=== PATIENT | male | born 1950 | race Caucasian/White ===

== ENCOUNTER 2018-01-22 13:30 | Outpatient (RCR) | payer MEDICARE | END 2018-01-22 14:13 | disposition home or self-care (01) | PROVIDERS: ATTEND Internal Medicine | DX: F98.5 Adult onset fluency disorder (principal); I10 Essential (primary) hypertension; E11.9 Type 2 diabetes mellitus without complications; Z85.89 Personal history of malignant neoplasm of other organs and systems ==

== ENCOUNTER → 2018-12-23 | Outpatient (CLI) | payer MEDICARE, OTHER ==
[~2018-12-23] MED LIST: AMLO10TA7 PO; ASPI-999 PO; ATOR80TA76 PO; BARIUM SUSPENSION 105% (LIQUID POLIBAR PLUS) 240 ML/DOSE PO ONE; BARIUM SUSPENSION 60% (LIQUID EZ PAQUE) 240 ML DOSE PO ONE; DIATRIZOATE MEGLUM/SODIUM 37% 120 ML (GASTROGRAFIN) PO ONE; GLIM4TAB PO; HYDR-3812 PO; METF-397 PO; PANT40TA3 PO
--- NOTE | 2018-12-23 15:29 | Diagnostic Imaging Report ---
INDICATION: Difficulty swallowing. EXAMINATION: Barium swallow study. A double contrast exam was performed. COMPARISON: There are no prior studies available for comparison. FINDINGS: The preliminary film was unremarkable. The patient swallowed the contrast material without difficulty. There was no delay or obstruction to the passage of the contrast through the esophagus. The proximal esophagus is slightly deviated to the right. There is no clear evidence for a mass in this area but if further study is desired, then CT of the neck would be recommended. The esophagus shows fairly good distensibility and motility. There is no mass or ulceration evident. There is no sign of a hiatal hernia or of gastroesophageal reflux. A cursory examination of the stomach shows no evidence for a gastric mass or ulceration. The duodenal bulb and proximal small bowel are unremarkable. IMPRESSION: 1. The proximal esophagus is slightly shifted to the right. There is no evidence for a mass in this area but if further imaging is desired, then CT of the neck would be recommended. 2. There is no evidence for obstruction of the esophagus and there is no sign of a hiatal hernia or reflux. 3. A cursory examination of the stomach, duodenum and proximal small bowel shows no acute abnormality. Dictated by: Dictated on workstation # [id number]
== END ==
LOC: RAD 10:13
PROVIDERS: ATTEND Nurse Practitioner Primary Care
DX: R13.10 Dysphagia, unspecified (principal)
CPT/HCPCS: 74220

== ENCOUNTER 2018-12-24 05:38 | Outpatient (CLI) | payer MEDICARE, OTHER ==
[~2018-12-24] VITALS: Ht 188 cm; Wt 124.7 kg
[2018-12-24] MEDS ORDERED: ASPI-999 PO (14:38)
[2018-12-24] MEDS ORDERED: AMLO10TA7 PO (14:50)
[2018-12-24] MEDS ORDERED: ATOR80TA76 PO (14:50)
[2018-12-24] MEDS ORDERED: METF-397 PO (14:50)
[2018-12-24] MEDS ORDERED: GLIM4TAB PO (14:50)
[2018-12-24] MEDS ORDERED: HYDR-3812 PO (14:50)
[2018-12-24] MEDS ORDERED: PANT40TA3 PO (14:50)
== END 2018-12-24 14:51 ==
LOC: PREOP 05:38
PROVIDERS: ATTEND Surgery
DX: Z01.818 Encounter for other preprocedural examination (principal)

== ENCOUNTER 2018-12-28 12:09 | Day surgery (SDC) | payer MEDICARE, OTHER ==
[~2018-12-28] VITALS: Ht 188 cm; Wt 124.7 kg
[~2018-12-28 12:09] MED LIST changes: -BARIUM SUSPENSION 105% (LIQUID POLIBAR PLUS) 240 ML/DOSE PO ONE; -BARIUM SUSPENSION 60% (LIQUID EZ PAQUE) 240 ML DOSE PO ONE; -DIATRIZOATE MEGLUM/SODIUM 37% 120 ML (GASTROGRAFIN) PO ONE
--- OUTSIDE RECORDS SUMMARY | 2018-12-28 12:13 | XMS REPORT ---
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 30172559 Problem Slow transit constipation K59.01 Active 45434704 Problem Anxiety F41.9 Active 73318395 Problem Mixed hyperlipidemia E78.2 Active 192007637 Problem Other chronic pain G89.29 Active 63638289 ALLERGIES No Information ENCOUNTERS Encounter Location Date Diagnosis [place] [id number] [address] Sep, [facility] [address] [address] Aug, [place] [address] [address]- [address] Aug, Type 2 diabetes mellitus with other specified complication, without long-term current use of insulin E11.69 [facility] [address] [place] [id number] [place] [address]28- 3466 Jul, [facility] [address] [address]- [address] Jul, [facility] [address] [address]- [address] Jul, [facility] [address] [address]- 0365 Jun, [facility] [address] [place] [id number] [place] [address] 20166- 1157 Jun, [facility] [address] [address]- [address] Jun, Anxiety F41.9 [facility] [address] [place] [id number] [place] [address] 15192- 6919 Jun, Anxiety F41.9 [place] [address] [address]- [address] Jun, Type 2 diabetes mellitus without complication, without long- term current use of insulin E11.9 ; Recurrent major depressive disorder, remission status unspecified F33.9 ; Mixed hyperlipidemia E78.2 ; Anxiety F41.9 ; Slow transit constipation K59.01 ; Other chronic pain G89.29 and Essential hypertension I10 [place] [address] [address]- [address] May, Type 2 diabetes mellitus without complication, without long- term current use of insulin E11.9 [place] [address] [place] [id number] [place] [address] 40709- 7617 Mar, 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 ; Controlled substance agreement signed Z79.899 and BMI 40.0-44.9, adult Z68.41 [facility] [address] [place] [id number] [place] [address] [id number] Jan, [place] [address] [place] [id number] [place] [address] 23386- 9846 Jan, [facility] [address] [place] [id number] [place] [address] [id number] Jan, [place] [address] 7[address]- 135[address] Jan, Type 2 diabetes mellitus without complication, without long- term current use of insulin E11.9 [place] [address] [place] [id number] [place] [address] 55507- 2934 Jan, [facility] [address] [id number] [id number] Jan, Dental examination Z01.20 [facility] [address] [id number] [address] Jan, Dental examination Z01.20 and 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 [facility] [address] [id number] [address] Dec, Dental examination Z01.20 [facility] [address] [facility] [id number] [address] Dec, Encounter to establish care Z76.89 ; Speech problem R47.9 ; Pain in gums K06.8 ; Slow transit constipation K59.01 ; Anxiety F41.9 ; Mixed hyperlipidemia E78.2 ; Recurrent major depressive disorder, remission status unspecified F33.9 ; Essential hypertension I10 ; Other chronic pain G89.29 ; Low back pain M54.5 and Type 2 diabetes mellitus without complication, without long-term current use of insulin E11.9 IMMUNIZATIONS No Known Immunizations SOCIAL HISTORY Never Assessed REASON FOR VISIT DM ED PLAN OF CARE VITAL SIGNS MEDICATIONS Unknown Medications RESULTS No Results PROCEDURES Procedure Date Ordered Result Body Site [facility] VISIT ESTABLISHED PATIENT Sep 10, 2018 DM OP SLF-MGMT TRN SRVC ESTABLISHED PT 30 MIN Sep 10, 2018 INSTRUCTIONS MEDICATIONS ADMINISTERED No Known Medications MEDICAL (GENERAL) HISTORY Type Description Date Medical History Diabetes Type 2 Medical History High Cholesterol Medical History Hypertension Medical History Arthitis in Back Medical History Nerve problems Medical History Depression Medical History throat cancer Medical History radiation-localized to larynx (Patient's mouth and jaws were not involved-per Tara Brantley at [facility] Medical History blood thinners- aspirin Medical History bronchitis Surgical History Throat Cancer Removal Surgical History Gallbladder Removal Hospitalization History Surgery
--- OUTSIDE RECORDS SUMMARY | 2018-12-28 12:13 | XMS REPORT ---
Author Author ELI HAYNES [facility] Address [address] [place] [address] Care Team Providers Care Linen Room Attendant Name Role Phone ELI HAYNES Unavailable PROBLEMS Type Condition ICD9-CM Code [id number] Code Onset Dates Condition Status SNOMED Code Problem Essential hypertension I10 Active 73600123 Problem Slow transit constipation K59.01 Active 82012473 Problem Anxiety F41.9 Active 18517471 Problem Recurrent major depressive disorder, remission status unspecified F33.9 Active 87814089 Problem Stuttering F80.81 Active 35015722 Problem Difficulty with speech R47.9 Active 304149935 Problem Mixed hyperlipidemia E78.2 Active 380788469 Problem Other chronic pain G89.29 Active 87641459 Problem Type 2 diabetes mellitus with other specified complication, without long-term current use of insulin E11.69 Active 14320985 Problem 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 26882634 ALLERGIES No Known Allergies ENCOUNTERS Encounter Location Date Diagnosis [place] [id number] [place] [id number] [place] [address]- 4332 Oct, [place] [address] [place] [id number] [place] [address] 67987- 0969 Sep, Type 2 diabetes mellitus with other specified complication, without long-term current use of insulin E11.69 [place] [address] [place] [id number] [place] [address] 31183- 7796 Sep, Type 2 diabetes mellitus with other specified complication, without long-term current use of insulin E11.69 ; Essential hypertension I10 ; Difficulty with speech R47.9 and Muscle stiffness M62.89 [place] [address] [place] [id number] [place] [address] 97198- 6456 Aug, [place] [address] [address]- [address] Aug, Type 2 diabetes mellitus with other specified complication, without long-term current use of insulin E11.69 [place] [address] [place] [id number]- 1096 Jul, [facility] [address] [place] [id number]284 Jul, [facility] [address] [place] 406413- 3292 Jul, [facility] [address] [address]- [address] Jun, [place] [address] [place] [address] [address] Jun, [place] [address] 787[address]- 5261 Jun, Anxiety F41.9 [place] [address] [place] [id number] [place] [address] 71720- 7749 Jun, Anxiety F41.9 [place] [address] [place] [id number]- 1607 Jun, Type 2 diabetes mellitus without complication, without long- term current use of insulin E11.9 ; Recurrent major depressive disorder, remission status unspecified F33.9 ; Mixed hyperlipidemia E78.2 ; Anxiety F41.9 ; Slow transit constipation K59.01 ; Other chronic pain G89.29 and Essential hypertension I10 [place] [address] [place] [id number] [place] [address] 28100- 2742 May, Type 2 diabetes mellitus without complication, without long- term current use of insulin E11.9 [place] [address] [place] [id number]- 2013 Mar, 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 ; Controlled substance agreement signed Z79.899 and BMI 40.0-44.9, adult Z68.41 [facility] [address] [place] [id number] [place] [id number] Jan, [facility] [address] [address] Jan, [facility] [address] [place] [address] [id number] Jan, [place] [address] [place] [address] [id number]- 4996 Jan, Type 2 diabetes mellitus without complication, without long- term current use of insulin E11.9 [place] [address] [place] [address] 42313- 5616 Jan, [facility] [address] [place] [id number] [place] [address] [id number] Jan, Dental examination Z01.20 [place] [address] [place] [id number] [place] [address] [phone]- 6302 Jan, Dental examination Z01.20 and 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 [place] [address] [place] [address] [id number]- 1721 Dec, Dental examination Z01.20 [place] [address] [place] [id number] [place] [address] 347837- 3926 Dec, Encounter to establish care Z76.89 ; [...] SOCIAL HISTORY Never Assessed REASON FOR VISIT Establish Care- JORDEN Pacheco PLAN OF CARE Activity Details Follow Up 3 months or as indicated by lab Reason:DM VITAL SIGNS Height 72 in 2018-10-07 Weight 269.7 lbs 2018-10-07 Temperature 96.7 degrees Fahrenheit 2018-10-07 Heart Rate 118 bpm 2018-10-07 Respiratory Rate 20 2018-10-07 BMI 36.57 kg/m2 2018-10-07 Blood pressure systolic 112 mmHg 2018-10-07 Blood pressure diastolic 64 mmHg 2018-10-07 MEDICATIONS Medication Instructions Dosage Frequency Start Date End Date Duration Status Stool Softener Not-Taking Fluoxetine 20 mg Orally Once a day 1 capsule in the morning 24h Active Blood Glucose Monitor System w/Device test blood sugar once daily Jul, Active nexium 1 tab Not-Taking Metformin HCl 500 mg Orally Twice a day 2 tablets with meals 12h Active Fish Oil Active Baclofen 10 mg Orally Three times a day 1 tablet with food or milk 8h Sep, 30 day(s) Active Amlodipine Besylate 10 mg Orally Once a day 1 tablet 24h Active OneTouch Verio 1 subcutaneously test blood sugar once daily as directed Jul, Active Lancets - as directed Jul, Active Atorvastatin Calcium 80 MG Orally Once a day 1 tablet 24h Active Hydrocodone-Acetaminophen Active Clorazepate Dipotassium 7.5 MG Orally Once a day 1 tablet at bedtime as needed 24h 28 days Active Glimepiride 4 MG Orally Once a day 2 tablets 24h Active Nexium 40 MG Orally Once a day 1 capsule 24h 30 day(s) Active RESULTS No Results PROCEDURES Procedure Date Ordered Result Body Site [facility] VISIT ESTABLISHED PATIENT Oct 07, 2018 INSTRUCTIONS MEDICATIONS ADMINISTERED No Known Medications MEDICAL (GENERAL) HISTORY Type Description Date Medical History Diabetes Type 2 Medical History High Cholesterol Medical History Hypertension Medical History Arthitis in Back Medical History Nerve problems Medical History Depression Medical History throat cancer Medical History radiation-localized to larynx (Patient's mouth and jaws were not involved-per Tara Brantley at [facility].) Medical History blood thinners- aspirin Medical History bronchitis Surgical History Throat Cancer Removal Surgical History Gallbladder Removal Hospitalization History Surgery
--- OUTSIDE RECORDS SUMMARY | 2018-12-28 12:13 | XMS REPORT ---
Author Author PREETHI MARTÍNEZ Organization [facility] Address [address] [place] [address] Care Team Providers Care Head Of Digital Name Role Phone PREETHI MARTÍNEZ Unavailable PROBLEMS Type Condition ICD9-CM Code [id number] Code Onset Dates Condition Status SNOMED Code Problem Essential hypertension I10 Active 96712077 Problem Slow transit constipation K59.01 Active 92905714 Problem Anxiety F41.9 Active 65678201 Problem Recurrent major depressive disorder, remission status unspecified F33.9 Active 50540620 Problem Stuttering F80.81 Active 93743960 Problem Difficulty with speech R47.9 Active 781503378 Problem Mixed hyperlipidemia E78.2 Active 197605724 Problem Other chronic pain G89.29 Active 51093899 Problem Type 2 diabetes mellitus with other specified complication, without long-term current use of insulin E11.69 Active 44529740 Problem 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 03261185 ALLERGIES No Information ENCOUNTERS Encounter Location Date Diagnosis [place] [address] [place] [id number] [place] [address]43- 6025 Oct, [place] [address] [place] [id number] [place] [address] 90969- 7066 Sep, Type 2 diabetes mellitus with other specified complication, without long-term current use of insulin E11.69 [place] [address] [place] [id number] [place] [address] 81734- 9405 Sep, Type 2 diabetes mellitus with other specified complication, without long-term current use of insulin E11.69 ; Essential hypertension I10 ; Difficulty with speech R47.9 and Muscle stiffness M62.89 [place] [address] [address]- [address] Aug, [place] [address] 7[address]- 3874 Aug, Type 2 diabetes mellitus with other specified complication, without long-term current use of insulin E11.69 [place] [address] [place] [id number]- 3047 Jul, [facility] [address] [address]- [address] Jul, [place] [address] [place] 192637- 1409 Jul, [place] [address] [address]265- [address]005 Jun, [place] [address] [address]14- 2354 Jun, [place] [address] 29494- 4641 Jun, Anxiety F41.9 [place] [address] 18405- 4853 Jun, Anxiety F41.9 [place] [address] 84079- 9666 Jun, Type 2 diabetes mellitus without complication, without long- term current use of insulin E11.9 ; Recurrent major depressive disorder, remission status unspecified F33.9 ; Mixed hyperlipidemia E78.2 ; Anxiety F41.9 ; Slow transit constipation K59.01 ; Other chronic pain G89.29 and Essential hypertension I10 [place] [address] 01554- 1060 May, Type 2 diabetes mellitus without complication, without long- term current use of insulin E11.9 [place] [address] [address]14- 3210 Mar, 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 ; Controlled substance agreement signed Z79.899 and BMI 40.0-44.9, adult Z68.41 [facility] [address] [id number] Jan, [facility] [address] [place] [address] [id number]- 5826 Jan, [facility] [address] [place] [id number] [place] [address] [phone] Jan, [place] [address] [place] [id number] [place] [address] 09220- 8901 Jan, Type 2 diabetes mellitus without complication, without long- term current use of insulin E11.9 [place] [address] [place] [id number] [place] [address] [id number]- 9316 Jan, [facility] [address] [place] [id number] [place] [address] [id number] Jan, Dental examination Z01.20 [place] [address] [place] [id number] [place] [address] 16085- 2535 Jan, Dental examination Z01.20 and 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 [place] [address] [place] [id number] [place] [address] 38359- 7291 Dec, Dental examination Z01.20 [place] [address] [place] [id number] [place] [phone] Dec, Encounter to establish care Z76.89 ; [...] SOCIAL HISTORY Never Assessed REASON FOR VISIT Test strips PLAN OF CARE VITAL SIGNS MEDICATIONS Medication Instructions Dosage Frequency Start Date End Date Duration Status OneTouch Verio 1 subcutaneously test blood sugar once daily and prn as directed Jul, Active RESULTS No Results PROCEDURES No Known procedures INSTRUCTIONS MEDICATIONS ADMINISTERED No Known Medications MEDICAL (GENERAL) HISTORY Type Description Date Medical History Diabetes Type 2 Medical History High Cholesterol Medical History Hypertension Medical History Arthitis in Back Medical History Nerve problems Medical History Depression Medical History throat cancer Medical History radiation-localized to larynx (Patient's mouth and jaws were not involved-per Tara Brantley at [facility].) Medical History blood thinners- aspirin Medical History bronchitis Surgical History Throat Cancer Removal Surgical History Gallbladder Removal Hospitalization History Surgery
--- OUTSIDE RECORDS SUMMARY | 2018-12-28 12:14 | XMS REPORT ---
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 [address] [address]- [address] Jun, [place] [address] [place] [id number] [place] [address] 71172- [address]141 Jun, [facility] [address] [address]- 7062 Jun, Anxiety F41.9 [facility] [address] [address]- 5269 Jun, [address] F41.9 [facility] [address] [address]54- 3[address] Jun, Type 2 diabetes mellitus without complication, without long- term current use of insulin E11.9 ; Recurrent major depressive disorder, remission status unspecified F33.9 ; Mixed hyperlipidemia E78.2 ; Anxiety F41.9 ; Slow transit constipation K59.01 ; Other chronic pain G89.29 and Essential hypertension I10 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 ; Controlled substance agreement signed Z79.899 and BMI 40.0-44.9, adult Z68.41 [facility] [address] [id number] Jan, [place] [address] [address]- 6435 Jan, [facility] [address] [id number] Jan, [place] [address] 33956- 7357 Jan, Type 2 diabetes mellitus without complication, without long- term current use of insulin E11.9 [place] [address] 72689- 5011 Jan, [facility] [address] [id number] Jan, Dental examination Z01.20 [place] [address] 94075- 6065 Jan, Dental examination Z01.20 and 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 [place] [address] 80042- 5661 Dec, Dental examination Z01.20 [place] [address] 39386- 9271 Dec, Encounter to establish care Z76.89 ; [...] Never Assessed REASON FOR VISIT DM ED Scheduled PLAN OF CARE VITAL SIGNS MEDICATIONS Unknown Medications RESULTS No Results PROCEDURES No Known procedures [...] not involved-per Tara Br[facility]ley at [facility].) Medical History blood thinners- aspirin Medical History bronchitis Surgical History Throat Cancer Removal Surgical History Gallbladder Removal Hospitalization History Surgery
--- OUTSIDE RECORDS SUMMARY | 2018-12-28 12:14 | XMS REPORT ---
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 30059713 Problem Mixed hyperlipidemia E78.2 Active 406741348 Problem Anxiety F41.9 Active 32564902 Problem Essential hypertension I10 Active 95309916 Problem Other chronic pain G89.29 Active 62277780 Problem Slow transit constipation K59.01 Active 63046950 ALLERGIES No Information ENCOUNTERS Encounter Location Date Diagnosis [place] [id number] [place] [address] 61416- 3428 Aug, [facility] [id number] [place] [address] 44460- 0221 Jul, [facility] [id number] [place] [address] 00823- 5656 Jul, [facility] [id number] [place] [address] 76294- 5849 Jul, [facility] [id number] [place] [address] 23227- 2416 Jun, [facility] [id number] [place] [address] 54712- 6081 Jun, [facility] [id number] [place] [address] 12003- 3615 Jun, Anxiety F41.9 [place] [id number] [place] [address] 45091- 5680 Jun, Anxiety F41.9 [place] [address] 79335- 1189 Jun, Type 2 diabetes mellitus without complication, without long- term current use of insulin E11.9 ; Recurrent major depressive disorder, remission status unspecified F33.9 ; Mixed hyperlipidemia E78.2 ; Anxiety F41.9 ; Slow transit constipation K59.01 ; Other chronic pain G89.29 and Essential hypertension I10 [place] [address] 47185- 8223 May, Type 2 diabetes mellitus without complication, without long- term current use of insulin E11.9 [place] [id number] [place] [address] 72958- 1806 Mar, 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 ; Controlled substance agreement signed Z79.899 and BMI 40.0-44.9, adult Z68.41 [facility] [id number] [place] [address] [id number] Jan, [place] [address] 47883- 4848 Jan, [facility] [id number] [place] [address] [id number] Jan, [place] [address] 70932- 5583 Jan, Type 2 diabetes mellitus without complication, without long- term current use of insulin E11.9 [place] [id number] [place] [address] 67418- 2535 Jan, [facility] [address] [id number] Jan, Dental examination Z01.20 [place] [address] 70548- 4496 Jan, Dental examination Z01.20 and 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 [facility] [address] [facility] [id number] [place] [address]- 9868 Dec, Dental examination Z01.20 [facility] [address] [facility] [id number] [place] [address]- 2557 Dec, Encounter to establish care Z76.89 ; [...] SOCIAL HISTORY Never Assessed REASON FOR VISIT resend RX PLAN OF CARE VITAL SIGNS MEDICATIONS Medication Instructions Dosage Frequency Start Date End Date Duration Status OneTouch Verio - subcutaneously test bloodsugar fasting and 2 hours after one meal three times weekly as directed Jul, Active RESULTS No Results [...] not involved-per Tara Brantley at [facility] [place] Medical History blood thinners- aspirin Medical History bronchitis Surgical History Throat Cancer Removal Surgical History Gallbladder Removal Hospitalization History Surgery
--- OUTSIDE RECORDS SUMMARY | 2018-12-28 12:14 | XMS REPORT ---
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 41124320 Problem Mixed hyperlipidemia E78.2 Active 747756001 Problem Anxiety F41.9 Active 86344681 Problem Essential hypertension I10 Active 69764589 Problem Other chronic pain G89.29 Active 47669215 Problem Slow transit constipation K59.01 Active 54315198 ALLERGIES No Information ENCOUNTERS Encounter Location Date Diagnosis [place] [id number] [place] [address] 90282- 4591 Aug, [facility] [id number] [place] [address] 37400- 4192 Jul, [facility] [id number] [place] [address] 23228- 4240 Jul, [facility] [id number] [place] [address] 62892- 6727 Jul, [facility] [id number] [place] [address] 42360- 3696 Jun, [facility] [address] 47581- 8422 Jun, [facility] [id number] [place] [address] 04007- 5939 Jun, Anxiety F41.9 [place] [id number] [place] [address] 53214- 1773 Jun, Anxiety F41.9 [place] [address] 24645- 7475 Jun, Type 2 diabetes mellitus without complication, without long- term current use of insulin E11.9 ; Recurrent major depressive disorder, remission status unspecified F33.9 ; Mixed hyperlipidemia E78.2 ; Anxiety F41.9 ; Slow transit constipation K59.01 ; Other chronic pain G89.29 and Essential hypertension I10 [place] [address] 91155- 6670 May, Type 2 diabetes mellitus without complication, without long- term current use of insulin E11.9 [place] [id number] [place] [address] 97677- 0988 Mar, 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 ; Controlled substance agreement signed Z79.899 and BMI 40.0-44.9, adult Z68.41 [facility] [id number] [place] [address] [id number] Jan, [place] [address] 45063- 8234 Jan, [facility] [id number] [place] [address] [id number] Jan, [place] [address] 05084- 0800 Jan, Type 2 diabetes mellitus without complication, without long- term current use of insulin E11.9 [place] [id number] [place] [address] 93626- 1663 Jan, [facility] [address] [id number] Jan, Dental examination Z01.20 [place] [address] 43017- 5035 Jan, Dental examination Z01.20 and 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 [facility] [address] [facility] [id number] [place] [address]- 0761 Dec, Dental examination Z01.20 [facility] [address] [facility] [id number] [place] [address]- 6442 Dec, Encounter to establish care Z76.89 ; [...] SOCIAL HISTORY Never Assessed REASON FOR VISIT test strips PLAN OF CARE VITAL SIGNS MEDICATIONS Medication Instructions Dosage Frequency Start Date End Date Duration Status OneTouch Verio - subcutaneously test blood sugar once daily as directed Jul, Active Blood Glucose Monitor System w/Device test blood sugar once daily Jul, Active Lancets - as directed Jul, Active RESULTS No Results [...] not involved-per Tara Brantley at [facility] [place].) Medical History blood thinners- aspirin Medical History bronchitis Surgical History Throat Cancer Removal Surgical History Gallbladder Removal Hospitalization History Surgery
--- OUTSIDE RECORDS SUMMARY | 2018-12-28 12:14 | XMS REPORT ---
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 06645911 Problem Mixed hyperlipidemia E78.2 Active 170491861 Problem Anxiety F41.9 Active 34748032 Problem Essential hypertension I10 Active 59082775 Problem Other chronic pain G89.29 Active 68485292 Problem Slow transit constipation K59.01 Active 54493901 ALLERGIES No Information ENCOUNTERS Encounter Location Date Diagnosis [place] [id number] [place] [address] 28119- 6708 Jul, [facility] [address] 13328- 3449 Jun, [place] [id number] [place] [address] 28742- 1942 Jun, [facility] [address] 32006- 4153 Jun, Anxiety F41.9 [facility] [address] 71767- 7097 Jun, Anxiety F41.9 [facility] [address] 60865- 2084 Jun, Type 2 diabetes mellitus without complication, without long- term current use of insulin E11.9 ; Recurrent major depressive disorder, remission status unspecified F33.9 ; Mixed hyperlipidemia E78.2 ; Anxiety F41.9 ; Slow transit constipation K59.01 ; Other chronic pain G89.29 and Essential hypertension I10 [facility] [address] 94820- 6025 May, Type 2 diabetes mellitus without complication, without long- term current use of insulin E11.9 [place] [address] 06247- 0765 Mar, 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
--- OUTSIDE RECORDS SUMMARY | 2018-12-28 12:14 | XMS REPORT ---
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 38686722 Problem Slow transit constipation K59.01 Active 43206085 Problem Anxiety F41.9 Active 97324502 Problem Mixed hyperlipidemia E78.2 Active 480087005 Problem Other chronic pain G89.29 Active 27502191 ALLERGIES No Information ENCOUNTERS Encounter Location Date Diagnosis [place] [address] 54193- 6593 Sep, [facility] [address] 09207- 5372 Aug, [place] [address] 21895- 7818 Aug, Type 2 diabetes mellitus with other specified complication, without long-term current use of insulin E11.69 [facility] [id number] [place] [address] 67628- 4184 Jul, [facility] [address] 47998- 9306 Jul, [facility] [address] 37098- 9439 Jul, [facility] [address] 20771- 3548 Jun, [facility] [id number] [place] [address] 66475- 5636 Jun, [place] [id number] [place] [address] 43588- 5456 Jun, Anxiety F41.9 [place] [id number] [place] [address] 37500- 8969 Jun, Anxiety F41.9 [place] [id number] [place] [address] 47264- 1948 Jun, Type 2 diabetes mellitus without complication, without long- term current use of insulin E11.9 ; Recurrent major depressive disorder, remission status unspecified F33.9 ; Mixed hyperlipidemia E78.2 ; Anxiety F41.9 ; Slow transit constipation K59.01 ; Other chronic pain G89.29 and Essential hypertension I10 [place] [id number] [place] [address] 50085- 8698 May, Type 2 diabetes mellitus without complication, without long- term current use of insulin E11.9 [place] [id number] [place] [address] 71372- 5918 Mar, 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 [address] [place] [address] [id number] Jan, [place] [id number] [place] [address] 30800- 2720 Jan, [facility] [address] [place] [address] [id number] Jan, [place] [id number] [place] [address] 45366- 6051 Jan, Type 2 diabetes mellitus without complication, without long- term current use of insulin E11.9 [place] [id number] [place] [address] 06951- 7991 Jan, 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 [facility] [address] [id number], [place] [address]- 0906 Dec, Dental examination Z01.20 [facility] [address] [facility] [id number], [place] [address]- 9516 Dec, Encounter to establish care Z76.89 ; [...] SOCIAL HISTORY Never Assessed REASON FOR VISIT 1 wk f/u DM Ed PLAN OF CARE VITAL SIGNS MEDICATIONS Unknown [...] not involved-per Tara Brantley at [facility] [place].) Medical History blood thinners- aspirin Medical History bronchitis Surgical History Throat Cancer Removal Surgical History Gallbladder Removal Hospitalization History Surgery
--- OUTSIDE RECORDS SUMMARY | 2018-12-28 12:14 | XMS REPORT ---
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 67825927 Problem Mixed hyperlipidemia E78.2 Active 791903553 Problem Anxiety F41.9 Active 39929510 Problem Essential hypertension I10 Active 06497963 Problem Other chronic pain G89.29 Active 37146826 Problem Slow transit constipation K59.01 Active 59604045 ALLERGIES No Information ENCOUNTERS Encounter Location Date Diagnosis [place] [id number] [place] [address] 17650- 2363 Jul, [facility] [address] 09350- 4618 Jun, [place] [id number] [place] [address] 96479- 2514 Jun, [facility] [address] 94870- 8447 Jun, Anxiety F41.9 [facility] [address] 06007- 9282 Jun, Anxiety F41.9 [facility] [address] 54745- 5818 Jun, Type 2 diabetes mellitus without complication, without long- term current use of insulin E11.9 ; Recurrent major depressive disorder, remission status unspecified F33.9 ; Mixed hyperlipidemia E78.2 ; Anxiety F41.9 ; Slow transit constipation K59.01 ; Other chronic pain G89.29 and Essential hypertension I10 [facility] [address] 22881- 3492 May, Type 2 diabetes mellitus without complication, without long- term current use of insulin E11.9 [place] [address] 05351- 0252 Mar, 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 ; Controlled substance agreement signed Z79.899 and BMI 40.0-44.9, adult Z68.41 [facility] [address] [id number] Jan, [place] [address] 65259- 0116 Jan, [facility] [address] [id number] Jan, [place] [address] 45862- 5091 Jan, Type 2 diabetes mellitus without complication, without long- term current use of insulin E11.9 [place] [address] 31108- 0355 Jan, [facility] [address] [id number] Jan, Dental examination Z01.20 [place] [address] 57330- 7667 Jan, Dental examination Z01.20 and 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 [place] [address] 69767- 8004 Dec, Dental examination Z01.20 [place] [address] 42816- 8163 Dec, Encounter to establish care Z76.89 ; [...] SOCIAL HISTORY Never Assessed REASON FOR VISIT medication refill PLAN OF CARE VITAL SIGNS MEDICATIONS Medication Instructions Dosage Frequency Start Date End Date Duration Status Clorazepate Dipotassium 7.5 MG Orally Once a day 1 tablet at bedtime as needed 24h 28 days Active RESULTS No Results PROCEDURES No Known [...] not involved-per Tara Brantley at [facility] Medical History blood thinners- aspirin Medical History bronchitis Surgical History Throat Cancer Removal Surgical History Gallbladder Removal Hospitalization History Surgery
--- OUTSIDE RECORDS SUMMARY | 2018-12-28 12:14 | XMS REPORT ---
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 06758494 Problem Mixed hyperlipidemia E78.2 Active 150085836 Problem Anxiety F41.9 Active 92809568 Problem Essential hypertension I10 Active 16627712 Problem Other chronic pain G89.29 Active 23453231 Problem Slow transit constipation K59.01 Active 35174282 ALLERGIES No Information ENCOUNTERS Encounter Location Date Diagnosis [place] [id number] [place] [address] 10712- 3759 Aug, [facility] [id number] [place] [address] 51765- 0052 Jul, [facility] [id number] [place] [address] 05198- 7803 Jul, [facility] [id number] [place] [address] 78531- 4042 Jul, [facility] [id number] [place] [address] 52410- 8243 Jun, [facility] [id number] [place] [address] 26516- 5562 Jun, [facility] [id number] [place] [address] 31974- 2143 Jun, Anxiety F41.9 [place] [id number] [place] [address] 91794- 4244 Jun, Anxiety F41.9 [place] [address] 93147- 6033 Jun, Type 2 diabetes mellitus without complication, without long- term current use of insulin E11.9 ; Recurrent major depressive disorder, remission status unspecified F33.9 ; Mixed hyperlipidemia E78.2 ; Anxiety F41.9 ; Slow transit constipation K59.01 ; Other chronic pain G89.29 and Essential hypertension I10 [place] [address] 83518- 7836 May, Type 2 diabetes mellitus without complication, without long- term current use of insulin E11.9 [place] [id number] [place] [address] 78970- 0293 Mar, 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 [id number] [place] [address] [id number] Jan, [place] [address] 85735- 3898 Jan, [facility] [id number] [place] [address] [id number] Jan, [place] [address] 87319- 2215 Jan, Type 2 diabetes mellitus without complication, without long- term current use of insulin E11.9 [place] [id number] [place] [address] 06923- 1641 Jan, 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 [facility] [address] [facility] [id number] [place] [address]- 0467 Dec, Dental examination Z01.20 [facility] [address] [facility] [id number] [place] [address]- 4683 Dec, Encounter to establish care Z76.89 ; [...] SOCIAL HISTORY Never Assessed REASON FOR VISIT glucometer RX PLAN OF CARE VITAL SIGNS MEDICATIONS Medication Instructions Dosage Frequency Start Date End Date Duration Status Blood Glucose Monitor System w/Device DX- E11.9 2 times a day-3 days weekly test blood sugar Jul, Active Blood Glucose Test Strip DX- E11.9 and lancets Test fasting and 2 hours after 1 meal- 3 times weekly. test blood sugar Jul, Active RESULTS No Results PROCEDURES No [...] involved-per Tara Brantley at [facility] [place].) Medical History blood thinners- aspirin Medical History bronchitis Surgical History Throat Cancer Removal Surgical History Gallbladder Removal Hospitalization History Surgery
--- OUTSIDE RECORDS SUMMARY | 2018-12-28 12:14 | XMS REPORT ---
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 44067242 Problem Mixed hyperlipidemia E78.2 Active 138909759 Problem Anxiety F41.9 Active 74242564 Problem Essential hypertension I10 Active 99916207 Problem Other chronic pain G89.29 Active 37228727 Problem Slow transit constipation K59.01 Active 40321570 ALLERGIES No Known Allergies ENCOUNTERS Encounter Location Date Diagnosis [place] [id number] [place] [address] Jul, [facility] [id number] [place] [address] Jun, [place] [id number] [place] [address] Jun, [facility] [id number] [place] [address] Jun, Anxiety F41.9 [facility] [id number] [place] [address] Jun, Anxiety F41.9 [facility] [id number] [place] [address]- [address] Jun, Type 2 diabetes mellitus without complication, without long- term current use of insulin E11.9 ; Recurrent major depressive disorder, remission status unspecified F33.9 ; Mixed hyperlipidemia E78.2 ; Anxiety F41.9 ; Slow transit constipation K59.01 ; Other chronic pain G89.29 and Essential hypertension I10 [place] [address] [address] May, Type 2 diabetes mellitus without complication, without long- term current use of insulin E11.9 [place] [address] [address] Mar, 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 ; Controlled substance agreement signed Z79.899 and BMI 40.0-44.9, adult Z68.41 [facility] [address] [id number] Jan, [place] [address] [address] Jan, [facility] [address] [id number] Jan, [place] [address] [address] Jan, Type 2 diabetes mellitus without complication, without long- term current use of insulin E11.9 [place] [address] [address] Jan, [facility] [address] [id number] Jan, Dental examination Z01.20 [place] [address] [address] Jan, Dental examination Z01.20 and 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 [place] [address] [address] Dec, Dental examination Z01.20 [place] [address] [address] Dec, Encounter to establish care Z76.89 ; [...] SOCIAL HISTORY Never Assessed REASON FOR VISIT Gisela Rosales RN, pt is unclear on meds going to call kenzie Strong RN PLAN OF CARE Activity Details Follow Up 3 Months, prn Reason:DM/HTN VITAL SIGNS Height 72 in 2018-07-15 Weight 290 lbs 2018-07-15 Temperature 98.3 degrees Fahrenheit 2018-07-15 Heart Rate 98 bpm 2018-07-15 Respiratory Rate 22 2018-07-15 BMI 39.33 kg/m2 2018-07-15 Blood pressure systolic 142 mmHg 2018-07-15 Blood pressure diastolic 82 mmHg 2018-07-15 MEDICATIONS Medication Instructions Dosage Frequency Start Date End Date Duration Status Nexium 40 MG Orally Once a day 1 capsule 24h 30 day(s) Active Hydrocodone-Acetaminophen 5-325 MG Orally twice a day 1 tablet as needed 12h Jun, 17 Jul, 2018 28 days Active Cyclobenzaprine HCl 10 mg Orally Three times a day 1 tablet as needed 8h Jul, 28 days Active Fish Oil Active Fluoxetine 20 mg Orally Once a day 1 capsule in the morning 24h Active Amlodipine Besylate 10 mg Orally Once a day 1 tablet 24h Active Clorazepate Dipotassium 7.5 MG Orally Once a day 1 tablet at bedtime as needed 24h Active Atorvastatin Calcium 80 MG Orally Once a day 1 tablet 24h Active Metformin HCl 500 mg Orally Twice a day 2 tablets with meals 12h 90 days Active nexium 1 tab Active Stool Softener Active Glimepiride 4 MG Orally Once a day 2 tablets 24h 90 days Active RESULTS Name Result Date Reference Range A1C (IN HOUSE) 2018-07-15 A1C IN HOUSE 8.4 4.3 - 5.6 % Previous A1c 9.1 Lot [id number] Exp date 01/13 PROCEDURES Procedure Date Ordered Result Body Site GLYCATED HEMOGLOBIN TEST Jul 15, 2018 [facility] VISIT ESTABLISHED PATIENT Jul 15, 2018 INSTRUCTIONS MEDICATIONS ADMINISTERED No Known Medications MEDICAL (GENERAL) HISTORY Type Description Date Medical History Diabetes Type 2 Medical History High Cholesterol Medical History Hypertension Medical History Arthitis in Back Medical History Nerve problems Medical History Depression Medical History throat cancer 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
--- OUTSIDE RECORDS SUMMARY | 2018-12-28 12:15 | XMS REPORT ---
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 05324315 Problem Mixed hyperlipidemia E78.2 Active 649633470 Problem Anxiety F41.9 Active 02825064 Problem Essential hypertension I10 Active 95262614 Problem Other chronic pain G89.29 Active 76259687 Problem Slow transit constipation K59.01 Active 71718208 ALLERGIES No Known Allergies ENCOUNTERS Encounter Location Date Diagnosis [facility] [id number] [place] [address] Mar, 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 ; Controlled substance agreement signed Z79.899 and BMI 40.0-44.9, adult Z68.41 [facility] [id number] [place] [id number] Jan, [facility] [address] [address] Jan, [facility] [id number] [place] [address] [id number] Jan, [facility] [address] [address] Jan, Type 2 diabetes mellitus without complication, without long- term current use of insulin E11.9 [facility] [address] [address]- [address] Jan, [facility] [address] [facility] [id number] [id number] Jan, Dental examination Z01.20 [facility] [address] [facility] [id number], [place] [address] Jan, Dental examination Z01.20 and 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 [place] [address] [id number] [address] Dec, Dental examination Z01.20 [place] [address] [facility] [id number], [place] [address] Dec, Encounter to establish care Z76.89 ; [...] HISTORY Never Assessed REASON FOR VISIT Establish Care--[facility] PLAN OF CARE Activity Details Follow Up 3 Months, prn Reason:DM VITAL SIGNS Height 72 in 2018-01-23 Weight 294 lbs 2018-01-23 Temperature 98.0 degrees Fahrenheit 2018-01-23 Heart Rate 92 bpm 2018-01-23 Respiratory Rate 20 2018-01-23 BMI 39.87 kg/m2 2018-01-23 Blood pressure systolic 128 mmHg 2018-01-23 Blood pressure diastolic 78 mmHg 2018-01-23 MEDICATIONS Medication Instructions Dosage Frequency Start Date End Date Duration Status Potassium Chloride 20 MEQ/15ML (10%) Orally Once a day 15 ml with food 24h Active Fluoxetine 20 mg Orally Once a day 1 capsule in the morning 24h 90 days Active Amlodipine Besylate 10 mg Orally Once a day 1 tablet 24h 90 days Active Fish Oil Active Cyclobenzaprine HCl 10 mg Orally Three times a day 1 tablet as needed 8h Jan, 30 days Active Atorvastatin Calcium 80 MG Orally Once a day 1 tablet 24h 90 days Active nexium 1 tab Active Metformin HCl 500 mg Orally Twice a day 1 tablet with meals 12h 90 days Active Glimepiride 4 MG Orally Once a day 1 tablet with breakfast or the first main meal of the day 24h 90 days Active Hydrocodone-Acetaminophen 5-500 MG Active Stool Softener Active Clorazepate Dipotassium 7.5 MG Orally Once a day 1 tablet at bedtime as needed 24h Active RESULTS No Results PROCEDURES Procedure Date Ordered Result Body Site [facility] January 23, 2018 Hemoglobin Test Send Out 0 dollar January 23, 2018 [facility] VISIT NEW PATIENT January 23, 2018 JAX ROUTINE* January 23, 2018 INSTRUCTIONS MEDICATIONS ADMINISTERED No Known Medications MEDICAL (GENERAL) HISTORY Type Description Date Medical History Diabetes Type 2 Medical History High Cholesterol Medical History Hypertension Medical History Arthitis in Back Medical History Nerve problems Medical History Depression Medical History throat cancer Medical History radiation-localized to larynx (Patient's mouth and jaws were not involved-per [facility] at [facility] Medical History blood thinners- aspirin Medical History bronchitis Surgical History Throat Cancer Removal Surgical History Gallbladder Removal Hospitalization History Surgery
--- OUTSIDE RECORDS SUMMARY | 2018-12-28 12:15 | XMS REPORT ---
Author Author laurelPHOENIX Kohler 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 35531771 Problem Mixed hyperlipidemia E78.2 Active 853550366 Problem Anxiety F41.9 Active 52621636 Problem Essential hypertension I10 Active 97727073 Problem Other chronic pain G89.29 Active 44998098 Problem Slow transit constipation K59.01 Active 84725495 ALLERGIES No Information ENCOUNTERS Encounter Location Date Diagnosis [facility] [address] [address] Mar, 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 ; Controlled substance agreement signed Z79.899 and BMI 40.0-44.9, adult Z68.41 [facility] [address] [id number] Jan, [facility] [address] [address] Jan, [facility] [id number] [place] [id number] Jan, [facility] [address] [address] Jan, Type 2 diabetes mellitus without complication, without long- term current use of insulin E11.9 [facility] [address] [address] Jan, [facility] [address] [id number] [place] [id number] Jan, Dental examination Z01.20 [facility] [address] 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 [id number] [address] Dec, Dental examination Z01.20 [facility] [address] [facility] [id number] [address] Dec, Encounter to establish care Z76.89 ; [...] SOCIAL HISTORY Never Assessed REASON FOR VISIT Other PLAN OF CARE VITAL SIGNS MEDICATIONS Medication Instructions Dosage Frequency Start Date End Date Duration Status Clindamycin HCl 150 MG Orally every 8 hrs 2 capsules 8h Jan, Jan, 10 days Active RESULTS No Results PROCEDURES No [...] not involved-per Tara Brantley at [facility] [place].) Medical History blood thinners- aspirin Medical History bronchitis Surgical History Throat Cancer Removal Surgical History Gallbladder Removal Hospitalization History Surgery
--- OUTSIDE RECORDS SUMMARY | 2018-12-28 12:15 | XMS REPORT ---
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 37715873 Problem Mixed hyperlipidemia E78.2 Active 303047328 Problem Anxiety F41.9 Active 65134886 Problem Essential hypertension I10 Active 29374330 Problem Other chronic pain G89.29 Active 21802361 Problem Slow transit constipation K59.01 Active 32609560 ALLERGIES No Information ENCOUNTERS Encounter Location Date Diagnosis [facility] [address] [address] Mar, 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 ; Controlled substance agreement signed Z79.899 and BMI 40.0-44.9, adult Z68.41 [facility] [address] [id number] Jan, [facility] [address] [address] Jan, [facility] [address] [id number] Jan, [facility] [address] [address]- [address] Jan, Type 2 diabetes mellitus without complication, without long- term current use of insulin E11.9 [facility] [address] [address] Jan, [facility] [address] [id number] [place] [id number] Jan, Dental examination Z01.20 [facility] [address] [facility] [id number] [address] Jan, Dental examination Z01.20 and 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 [facility] PLAN OF CARE Activity Details Follow Up 2 - 3 Days Reason:dental radiographs VITAL SIGNS MEDICATIONS No Known Medications RESULTS No Results PROCEDURES Procedure Date Ordered Result Body Site SCREENING OF A PATIENT January 23, 2018 Billing Notes on claim January 23, 2018 INSTRUCTIONS MEDICATIONS ADMINISTERED No Known Medications MEDICAL (GENERAL) HISTORY Type Description Date Medical History Diabetes Type 2 Medical History High Cholesterol Medical History Hypertension Medical History Arthitis in Back Medical History Nerve problems Medical History Depression Medical History throat cancer Medical History radiation-localized to larynx (Patient's mouth and jaws were not involved-per T[facility] at [facility] Medical History blood thinners- aspirin Medical History bronchitis Surgical History Throat Cancer Removal Surgical History Gallbladder Removal Hospitalization History Surgery
--- OUTSIDE RECORDS SUMMARY | 2018-12-28 12:15 | XMS REPORT ---
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 35537260 Problem Mixed hyperlipidemia E78.2 Active 304969866 Problem Anxiety F41.9 Active 66745180 Problem Essential hypertension I10 Active 78819189 Problem Other chronic pain G89.29 Active 74569256 Problem Slow transit constipation K59.01 Active 69730045 ALLERGIES No Information ENCOUNTERS Encounter Location Date Diagnosis [facility] [address] [address] Jun, [facility] [address] [address] May, Type 2 diabetes mellitus without complication, without long- term current use of insulin E11.9 [facility] [id number] [place] [address] Mar, 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 ; Controlled substance agreement signed Z79.899 and BMI 40.0-44.9, adult Z68.41 [facility] [address] [id number] Jan, [facility] [address] [address] Jan, [facility] [address] [id number] Jan, [place] [address]65[address] [address] Jan, Type 2 diabetes mellitus without complication, without long- term current use of insulin E11.9 [place] [address] [id number], [place] [address] Jan, [facility] [address] [id number] [id number] Jan, Dental examination Z01.20 [place] [address] [place] [id number]- [address] Jan, Dental examination Z01.20 and 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 [place] [address]65[address], [place] [address] Dec, Dental examination Z01.20 [place] [address] [place] [address]- [address] Dec, Encounter to establish care Z76.89 ; [...] SOCIAL HISTORY Never Assessed REASON FOR VISIT Medication refill request PLAN OF CARE VITAL SIGNS MEDICATIONS Medication Instructions Dosage Frequency Start Date End Date Duration Status Metformin HCl 500 mg Orally Twice a day 2 tablets with meals 12h 90 days Active RESULTS No Results PROCEDURES No [...] were not involved-per Tara Brantley at [facility] [place].) Medical History blood thinners- aspirin Medical History bronchitis Surgical History Throat Cancer Removal Surgical History Gallbladder Removal Hospitalization History Surgery
--- OUTSIDE RECORDS SUMMARY | 2018-12-28 12:15 | XMS REPORT ---
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 87808755 Problem Mixed hyperlipidemia E78.2 Active 310037384 Problem Anxiety F41.9 Active 20628169 Problem Essential hypertension I10 Active 38126740 Problem Other chronic pain G89.29 Active 61770680 Problem Slow transit constipation K59.01 Active 92151785 ALLERGIES No Information ENCOUNTERS Encounter Location Date Diagnosis [facility] [address] [address] Mar, 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 ; Controlled substance agreement signed Z79.899 and BMI 40.0-44.9, adult Z68.41 [facility] [address] [id number] Jan, [facility] [address] [address] Jan, [facility] [id number] [place] [id number] Jan, [facility] [address] [address] Jan, Type 2 diabetes mellitus without complication, without long- term current use of insulin E11.9 [facility] [address] [address] Jan, [facility] [address] [id number] [place] [id number] Jan, Dental examination Z01.20 [facility] [address] [facility] [id number] [place] [address] Jan, Dental examination Z01.20 and 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 Medical History blood thinners- aspirin Medical History bronchitis Surgical History Throat Cancer Removal Surgical History Gallbladder Removal Hospitalization History Surgery
--- OUTSIDE RECORDS SUMMARY | 2018-12-28 12:15 | XMS REPORT ---
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 97781020 Problem Mixed hyperlipidemia E78.2 Active 243768909 Problem Anxiety F41.9 Active 92651644 Problem Essential hypertension I10 Active 30896596 Problem Other chronic pain G89.29 Active 75942023 Problem Slow transit constipation K59.01 Active 89335287 ALLERGIES No Information ENCOUNTERS Encounter Location Date Diagnosis [facility] [address] [address] Mar, 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 ; Controlled substance agreement signed Z79.899 and BMI 40.0-44.9, adult Z68.41 [facility] [address] [id number] Jan, [facility] [address] [address] Jan, [facility] [address] [id number] Jan, [facility] [address] [address] Jan, Type 2 diabetes mellitus without complication, without long- term current use of insulin E11.9 [facility] [address] [address] Jan, [facility] [address] [id number] [place] [id number] Jan, Dental examination Z01.20 [facility] [address] [facility] [id number], [place] [address] Jan, Dental examination Z01.20 and 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 [facility] [address] [facility] [id number], [place] [address] Dec, Dental examination Z01.20 [facility] [address] [facility] [id number], [place] [address] Dec, Encounter to establish care Z76.89 ; [...] SOCIAL HISTORY Never Assessed REASON FOR VISIT denture screen /radiographs PLAN OF CARE Activity Details Follow Up bettina Reason: VITAL SIGNS MEDICATIONS No Known Medications RESULTS No Results PROCEDURES Procedure Date Ordered Result Body Site INTRAORL-PERIAPICAL 1 FILM [id number] January 26, 2018 INTRAORL-PERIAPICAL EA ADD FILM January 26, 2018 PANORAMIC FILM SEE ALSO CODE [id number] January 26, 2018 INTRAORL-PERIAPICAL EA ADD FILM January 26, 2018 INSTRUCTIONS MEDICATIONS ADMINISTERED No Known Medications MEDICAL (GENERAL) HISTORY Type Description Date Medical History Diabetes Type 2 Medical History High Cholesterol Medical History Hypertension Medical History Arthitis in Back Medical History Nerve problems Medical History Depression Medical History throat cancer Medical History radiation-localized to larynx (Patient's mouth and jaws were not involved-per Tara Br[facility]ley at [facility] Medical History blood thinners- aspirin Medical History bronchitis Surgical History Throat Cancer Removal Surgical History Gallbladder Removal Hospitalization History Surgery
--- OUTSIDE RECORDS SUMMARY | 2018-12-28 12:15 | XMS REPORT ---
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 [id number] [place] [address] May, Type 2 diabetes mellitus without complication, without long- term current use of insulin E11.9 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 [address] [address] Jan, [facility] [address] [place] [id number] Jan, [facility] [id number] [place] [address] Jan, Type 2 diabetes mellitus without complication, without long- term current use of insulin E11.9 [facility] [address] [facility] [id number] [address] Jan, [facility] [address] [id number] [id number] Jan, Dental examination Z01.20 [facility] [address] [place] [address] Jan, Dental examination Z01.20 and 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 [facility] [id number] [address] Dec, Dental examination Z01.20 [facility] [address] [address] Dec, Encounter to establish care Z76.89 ; [...] SOCIAL HISTORY Never Assessed REASON FOR VISIT Blood Pressure-mark LEONARDO PLAN OF CARE Activity Details Follow Up 3 Months, prn Reason:routine f/u VITAL SIGNS Height 72 in 2018-03-27 Weight 295 lbs 2018-03-27 Temperature 98.3 degrees Fahrenheit 2018-03-27 Heart Rate 118 bpm 2018-03-27 Respiratory Rate 22 2018-03-27 BMI 40.00 kg/m2 2018-03-27 Blood pressure systolic 140 mmHg 2018-03-27 Blood pressure diastolic 80 mmHg 2018-03-27 MEDICATIONS Medication Instructions Dosage Frequency Start Date End Date Duration Status Fish Oil Active Fluoxetine 20 mg Orally Once a day 1 capsule in the morning 24h 90 days Active Amlodipine Besylate 10 mg Orally Once a day 1 tablet 24h 90 days Active Hydrocodone-Acetaminophen 5-325 MG Orally twice a day 1 tablet as needed 12h Mar, Mar, 14 days Active nexium 1 tab Active Atorvastatin Calcium 80 MG Orally Once a day 1 tablet 24h 90 days Active Stool Softener Active Clorazepate Dipotassium 7.5 MG Orally Once a day 1 tablet at bedtime as needed 24h Active Metformin HCl 500 mg Orally Twice a day 2 tablets with meals 12h 30 days Active Glimepiride 4 MG Orally Once a day 1 tablet with breakfast or the first main meal of the day 24h 90 days Active RESULTS No Results PROCEDURES Procedure Date Ordered Result Body Site [facility] VISIT ESTABLISHED PATIENT March 27, 2018 INSTRUCTIONS MEDICATIONS ADMINISTERED No Known Medications MEDICAL (GENERAL) HISTORY Type Description Date Medical History Diabetes Type 2 Medical History High Cholesterol Medical History Hypertension Medical History Arthitis in Back Medical History Nerve problems Medical History Depression Medical History throat cancer Medical History radiation-localized to larynx (Patient's mouth and jaws were not involved-per Tara Brantley at [facility] Medical History blood thinners- aspirin Medical History bronchitis Surgical History Throat Cancer Removal Surgical History Gallbladder Removal Hospitalization History Surgery
--- OUTSIDE RECORDS SUMMARY | 2018-12-28 12:15 | XMS REPORT ---
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 43780721 Problem Mixed hyperlipidemia E78.2 Active 995521399 Problem Anxiety F41.9 Active 97759663 Problem Essential hypertension I10 Active 24541739 Problem Other chronic pain G89.29 Active 04965060 Problem Slow transit constipation K59.01 Active 26658756 ALLERGIES No Known Allergies ENCOUNTERS Encounter Location Date Diagnosis [facility] [address] [address] Mar, 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 ; Controlled substance agreement signed Z79.899 and BMI 40.0-44.9, adult Z68.41 [facility] [address] [id number] Jan, [facility] [id number] [place] [address] Jan, [facility] [id number] [place] [id number] Jan, [facility] [address] [address] Jan, Type 2 diabetes mellitus without complication, without long- term current use of insulin E11.9 [facility] [address] [address] Jan, [facility] [address] [id number] [id number] Jan, Dental examination Z01.20 [facility] [address] [facility] [id number], [place] [address] Jan, Dental examination Z01.20 and 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 [facility] [address] [id number], [place] [address] Dec, Dental examination Z01.20 [address] [facility] [id number], [place] [address] Dec, Encounter to establish care Z76.89 ; [...] SOCIAL HISTORY Never Assessed REASON FOR VISIT refugio PLAN OF CARE Activity Details Follow Up prn Reason: VITAL SIGNS Blood pressure systolic 140 mmHg 2018-01-26 Blood pressure diastolic 80 mmHg 2018-01-26 MEDICATIONS Medication Instructions Dosage Frequency Start Date End Date Duration Status nexium 1 tab Active Clorazepate Dipotassium 7.5 MG Orally Once a day 1 tablet at bedtime as needed 24h Active Hydrocodone-Acetaminophen 5-500 MG Active Atorvastatin Calcium 80 MG Orally Once a day 1 tablet 24h 90 days Active Amoxicillin 500 MG Orally every 8 hrs 1 tablet 8h Jan, Jan, 10 day(s) Active Glimepiride 4 MG Orally Once a day 1 tablet with breakfast or the first main meal of the day 24h 90 days Active Stool Softener Active Fish Oil Active Fluoxetine 20 mg Orally Once a day 1 capsule in the morning 24h 90 days Active Amlodipine Besylate 10 mg Orally Once a day 1 tablet 24h 90 days Active Potassium Chloride 20 MEQ/15ML (10%) Orally Once a day 15 ml with food 24h Active Metformin HCl 500 mg Orally Twice a day 1 tablet with meals 12h 90 days Active Cyclobenzaprine HCl 10 mg Orally Three times a day 1 tablet as needed 8h Jan, 30 days Active RESULTS No Results PROCEDURES Procedure Date Ordered Result Body Site COMP ORAL EVALUATION - NEW/EST PT January 26, 2018 Dental no charge January 26, 2018 Billing Notes on claim January 26, 2018 INSTRUCTIONS MEDICATIONS ADMINISTERED No Known Medications MEDICAL (GENERAL) HISTORY Type Description Date Medical History Diabetes Type 2 Medical History High Cholesterol Medical History Hypertension Medical History Arthitis in Back Medical History Nerve problems Medical History Depression Medical History throat cancer Medical History radiation-localized to larynx (Patient's mouth and jaws were not involved-per Tara Brantley at [facility] Medical History blood thinners- aspirin Medical History bronchitis Surgical History Throat Cancer Removal Surgical History Gallbladder Removal Hospitalization History Surgery
--- OUTSIDE RECORDS SUMMARY | 2018-12-28 12:15 | XMS REPORT ---
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 27011308 Problem Mixed hyperlipidemia E78.2 Active 958113721 Problem Anxiety F41.9 Active 47366863 Problem Essential hypertension I10 Active 13871618 Problem Other chronic pain G89.29 Active 91194215 Problem Slow transit constipation K59.01 Active 43575813 ALLERGIES No Information ENCOUNTERS Encounter Location Date Diagnosis [facility] [id number] [place] [address] Mar, 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 ; Controlled substance agreement signed Z79.899 and BMI 40.0-44.9, adult Z68.41 [facility] [id number] [place] [id number] Jan, [facility] [address] [address] Jan, [facility] [id number] [place] [id number] Jan, [facility] [address] [address] Jan, Type 2 diabetes mellitus without complication, without long- term current use of insulin E11.9 [facility] [address] [address] Jan, [facility] [address] [id number] [id number] Jan, Dental examination Z01.20 [facility] [address] [id number] [address] Jan, Dental examination Z01.20 and 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 [facility] [address] [id number] [address] Dec, Dental examination Z01.20 [facility] [address] [id number] [address] Dec, Encounter to establish care Z76.89 ; [...] SOCIAL HISTORY Never Assessed REASON FOR VISIT PLAN OF CARE VITAL SIGNS MEDICATIONS No [...] involved-per Tara Br[facility]ley at [facility] [place] Medical History blood thinners- aspirin Medical History bronchitis Surgical History Throat Cancer Removal Surgical History Gallbladder Removal Hospitalization History Surgery
--- OUTSIDE RECORDS SUMMARY | 2018-12-28 12:15 | XMS REPORT ---
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 66164287 Problem Mixed hyperlipidemia E78.2 Active 352395222 Problem Anxiety F41.9 Active 58228703 Problem Essential hypertension I10 Active 27329021 Problem Other chronic pain G89.29 Active 53446594 Problem Slow transit constipation K59.01 Active 05796888 ALLERGIES No Information ENCOUNTERS Encounter Location Date Diagnosis [facility] [id number] [place] [address] Mar, 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 ; Controlled substance agreement signed Z79.899 and BMI 40.0-44.9, adult Z68.41 [facility] [id number] [place] [id number] Jan, [facility] [address] [address] Jan, [facility] [id number] [place] [id number] Jan, [facility] [address] [address] Jan, Type 2 diabetes mellitus without complication, without long- term current use of insulin E11.9 [facility] [address] [address] Jan, [facility] [address] [facility] [id number] [id number] Jan, Dental examination Z01.20 [facility] [address] [id number], [place] [address] Jan, Dental examination Z01.20 and 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 [facility] [address] [id number], [place] [address] Dec, Dental examination Z01.20 [facility] [address] [id number], [place] [address] Dec, Encounter to establish care Z76.89 ; [...] SOCIAL HISTORY Never Assessed REASON FOR VISIT Med Increase PLAN OF CARE VITAL SIGNS MEDICATIONS Medication Instructions Dosage Frequency Start Date End Date Duration Status Metformin HCl 500 mg Orally Twice a day 2 tablets with meals 12h 30 days Active RESULTS No Results PROCEDURES No [...] not involved-per Tara Brantley at [facility] Medical History blood thinners- aspirin Medical History bronchitis Surgical History Throat Cancer Removal Surgical History Gallbladder Removal Hospitalization History Surgery
--- OUTSIDE RECORDS SUMMARY | 2018-12-28 12:15 | XMS REPORT ---
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 19699095 Problem Mixed hyperlipidemia E78.2 Active 423932090 Problem Anxiety F41.9 Active 38721209 Problem Essential hypertension I10 Active 10306768 Problem Other chronic pain G89.29 Active 82262396 Problem Slow transit constipation K59.01 Active 09887332 ALLERGIES No Information ENCOUNTERS Encounter Location Date Diagnosis [facility] [address] [address] Mar, 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 ; Controlled substance agreement signed Z79.899 and BMI 40.0-44.9, adult Z68.41 [facility] [address] [id number] Jan, [facility] [address] [address] Jan, [facility] [id number] [place] [id number] Jan, [facility] [address] [address] Jan, Type 2 diabetes mellitus without complication, without long- term current use of insulin E11.9 [facility] [address] [address] Jan, [facility] [address] [id number] [place] [phone] Jan, Dental examination Z01.20 [facility] [address] [id number], [place] [address] Jan, Dental examination Z01.20 and 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 [facility] [address] [facility] [id number], [place] [address] Dec, Dental examination Z01.20 [facility] [address] [facility] [id number], [place] [address] Dec, Encounter to establish care Z76.89 ; [...] not involved-per Tara Brantley at [facility] [place].) Medical History blood thinners- aspirin Medical History bronchitis Surgical History Throat Cancer Removal Surgical History Gallbladder Removal Hospitalization History Surgery
[2018-12-28 12:25] VITALS: BP 125/86
[2018-12-28] MEDS ORDERED: LACTATED RINGERS 1,000 ML IV PRN (12:30)
[2018-12-28] MEDS ORDERED: LACTATED RINGERS 1,000 ML IV ONE (12:45)
[2018-12-28] MEDS ORDERED: HURRICAINE EXT TUBE (BENZOCAINE) ONE (13:50)
--- NOTE | 2018-12-28 13:50 | Progress Note-Pre Operative ---
Pre-Operative Progress Note H&P Reviewed The H&P was reviewed, patient examined and no changes noted. Time Seen by Provider: 13:04 Date H&P Reviewed: Dec 28, 2018 Time H&P Reviewed: 13:05 Pre-Operative Diagnosis: Dysphagia, Gastritis, Screening colonoscopy and change in bowel habits JERAMY PEACOCK DO Dec 28, 2018 13:50
[2018-12-28] MEDS ORDERED: PROPOFOL INJECTION 50 ML IV ONE ×2 (13:57→14:12)
--- NOTE | 2018-12-28 14:39 | Progress Note-Post Operative ---
Post-Operative Progess Note Surgeon (s)/Keyboarding Clerk (s) Surgeon JERAMY PEACOCK DO Keyboarding Clerk: none Pre-Operative Diagnosis Dysphagia, Gastritis, Screening colonoscopy and change in bowel habits Post-Operative Diagnosis Same plus Cecal inflammation Sigmoid Polyp Internal hemorrhoids Poor prep Procedure & Operative Findings Date of Procedure 12/28/18 Procedure Performed/Findings 1. EGD with bx 2. Colon with snare 3. Colon with cold bx Anesthesia Type IV sedation by TRAFFIC CONTROL SPECIALIST Estimated Blood Loss Estimated blood loss (mL): scant Specimens/Packing Specimens Removed Antral Bx GE jxn bx Cecal bx Sigmoid polyp JERAMY PEACOCK DO Dec 28, 2018 14:39
--- NOTE | 2018-12-28 14:40 | Endoscopy Discharge Instruct ---
Endo Procedure/Findings Findings 1.: Gastritis 2.: Polyp 3.: Internal Hemorrhoids Discharge Instructions - Activity: You might feel a little sleepy until tomorrow. This is due to the medicine you received to relax you. Until tomorrow, you should: NOT drive a car, operate machinery or power tools. NOT drink any alcoholic beverages. NOT make any important decisions or sign importortant papers. Do not return to work until tomorrow, unless otherwise instructed. Resume previous activities tomorrow. Diet: Start by taking liquids. If you tolerate liquids, advance to solid food. make an appointment for one week Notify Physician - If you experience excessive bleeding, unusual abdominal pain, fever, or chest pain, contact your doctor immediately. Follow-Up: - I have received and understand the above instructions and will call my doctor if I have any further questions. Patient Signature Date Nurse Signature Other (Relationship) JERAMY PEACOCK DO Dec 28, 2018 14:40
[2018-12-28 14:45] VITALS: BP 131/82
--- NOTE | 2018-12-28 14:57 | Anesthesia-General Post-Op ---
MAC Patient Condition Mental Status/LOC: Same as Preop Cardiovascular: Satisfactory Nausea/Vomiting: Absent Respiratory: Satisfactory Pain: Controlled Complications: Absent Post Op Complications Complications None Follow Up Care/Instructions Patient Instructions None needed. Anesthesiology Discharge Order Discharge Order Patient is doing well, no complaints, stable vital signs, no apparent adverse anesthesia problems. No complications reported per nursing. KEL WRAY CRNA Dec 28, 2018 14:57
[2018-12-28 15:05] VITALS: BP 136/87
[2018-12-28 16:05] VITALS: BP 136/87
--- NOTE | 2018-12-29 06:51 | OPERATIVE REPORT ---
DATE OF SERVICE: PREOPERATIVE DIAGNOSES: 1. Dysphagia. 2. Gastritis. 3. Screening colonoscopy. 4. Change in bowel habits. POSTOPERATIVE DIAGNOSES: 1. Gastritis. 2. Esophagitis. 3. Cecal inflammation. 4. Sigmoid polyp. 5. Internal hemorrhoids. 6. Poor prep. PROCEDURES: 1. EGD with biopsy. 2. Colonoscopy with snare polypectomy. 3. Colonoscopy with cold biopsy. SURGEON: Uriel Calderon DO. AD OPERATIONS ASSOCIATE: None. ANESTHESIA: IV sedation by the EXPANSION ENVELOPE MAKER HAND. SPECIMENS: 1. One biopsy from the antrum, one biopsy from the GE junction. 2. Cecal biopsy. 3. Snare polypectomy of a sigmoid polyp. BLOOD LOSS: Scant. FLUIDS: Per anesthesia. POSTOPERATIVE CONDITION: Stable. INDICATION FOR PROCEDURE: The patient is a 68-year-old male who has a history of laryngeal cancer, supposedly released by his ENT as being clear, but he has now developed some constant drooling unsure what this is and having trouble swallowing. He also complains of some reflux symptoms. In addition, he states it has been a long time since he had a colonoscopy, does not remember how long and he has had some change in bowel habits. FINDINGS: The patient had some gastritis and looked like a small hiatal hernia as well as esophagitis, possible Barone's and then he had an inflammatory area in the cecum. Biopsy done. Sigmoid polyp was removed. With small internal hemorrhoids and also unfortunately he had retained fecal material, so he had a very poor prep. DESCRIPTION OF PROCEDURE: After informed consent was obtained, the patient was brought to the endoscopy suite and placed in the left lateral decubitus position. He was administered IV sedation by the EXPANSION ENVELOPE MAKER HAND, then monitored his vitals the entire time, heart rate, blood pressure, pulse ox and the scope was inserted down the mouth, looked at the larynx, tried to get two good pictures. It looked like there was some little bit friable, inflamed but inflamed with just minimal erythema. No masses seen on the vocal cords, tried to get a picture, but could not get a great picture. Pushed then down the esophagus into the stomach. There appeared to be some gastritis, picture taken. Pushed in the duodenum, duodenum looked fine. Pulled back into the antrum and did a biopsy of the antrum, Retroflexed the scope, saw what looked like maybe a small hiatal hernia, took a picture. Pulled back into the GE junction. There was limited creeping up at GE junction, so biopsy was done here. The rest of the esophagus looked good, took a picture and then removed the scope out of the esophagus out the mouth, did not see any else in the back of the mouth. Then, switched gloves, switched cameras and went down below to start the colonoscopy. Pushed in, upon entry immediately noted some formed fecal material and then lot of liquid fecal material, able to push it past this and get all the way to the cecum. Unfortunately, there is some retained fecal material all the way through this area. In the cecum could not totally clear out the cecum, so generally did not get a good picture of the appendiceal orifice because there was some formed fecal material, but there is an area of inflammation. Picture was taken, biopsy then performed, noting ileocecal valve and then slowly withdrew the scope insufflating to look circumferentially at the taylor, looking at the cecum up the ascending colon to hepatic flexure, down the transverse colon, splenic flexure, into the descending colon then down in the sigmoid and in the sigmoid, I saw a polyp, took a picture of this and then did a snare polypectomy and then continued down the rectum, retroflexed the rectal vault, saw some minimal internal hemorrhoids. Again, there was retained fecal material throughout here, so I could have missed some other polyps, did not miss any large masses, removed the scope. The patient tolerated the procedure well and then recovered in endoscopy suite. Job ID: [id number] DocumentID: [id number] Dictated Date: 12/28/2018 17:17:59 Sand Hauler Date: 12/29/2018 05:03:58 Dictated By: URIEL CALDERON DO
== END 2018-12-28 15:15 | disposition home or self-care (01) ==
LOC: ENDO 12:09
PROVIDERS: ATTEND Surgery
DX: Z12.11 Encounter for screening for malignant neoplasm of colon (principal); K29.50 Unspecified chronic gastritis without bleeding; K21.0 Gastro-esophageal reflux disease with esophagitis; D12.5 Benign neoplasm of sigmoid colon; K63.89 Other specified diseases of intestine; K64.8 Other hemorrhoids; R13.12 Dysphagia, oropharyngeal phase; R19.4 Change in bowel habit; I10 Essential (primary) hypertension; E78.5 Hyperlipidemia, unspecified; E11.9 Type 2 diabetes mellitus without complications; Z85.21 Personal history of malignant neoplasm of larynx; Z79.899 Other long term (current) drug therapy; Z79.82 Long term (current) use of aspirin; Z79.84 Long term (current) use of oral hypoglycemic drugs; Z92.3 Personal history of irradiation; Z87.891 Personal history of nicotine dependence
CPT/HCPCS: 82962

== ENCOUNTER → 2019-04-08 | Outpatient (CLI) | payer MEDICARE, OTHER ==
[2019-04-08 12:18] LABS: ALANINE AMINOTRANSFERASE 26 U/L (0-55); ALBUMIN 4.4 GM/DL (3.2-4.5); ALKALINE PHOSPHATASE 78 U/L (40-136); BILIRUBIN,TOTAL 0.7 MG/DL (0.1-1.0); BUN/CREATININE RATIO 16; CALCIUM 9.8 MG/DL (8.5-10.1); CARBON DIOXIDE 25 MMOL/L (21-32); CHLORIDE 110 MMOL/L (98-107); GFR ESTIMATED > 60; GLUCOSE 152 MG/DL (70-105); POTASSIUM 4.1 MMOL/L (3.6-5.0); SODIUM 143 MMOL/L (135-145); TOTAL PROTEIN 7.2 GM/DL (6.4-8.2)
--- NOTE | 2019-04-08 17:52 | Diagnostic Imaging Report ---
PROCEDURE: CT neck soft tissue with contrast. TECHNIQUE: Multiple contiguous axial images were obtained through the neck after the administration of contrast. Auto Exposure Controls were utilized during the CT exam to meet ALARA standards for radiation dose reduction. INDICATION: Carcinoma of the larynx. FINDINGS: There are no prior studies available for comparison. Reportedly, the patient has had partial resection of the larynx for carcinoma. The images through the larynx fail to show any sign of a mass lesion. There is mild deformity of the supraglottic portion of the larynx. This may be a sequela of the patient's prior surgery. If previous studies are available, they would be helpful for comparison. There is no adenopathy in the neck. The parotid and submandibular glands appear relatively symmetrical. The thyroid gland is homogeneous and not enlarged. The tracheal air shadow is not compressed or deviated. There is no evidence for a hemodynamically significant stenosis of either carotid system. Both vertebral arteries are opacified. The lung apices are clear. The intracranial contents where visualized are unremarkable. There is a 2 cm retention cyst in the floor of the left maxillary antrum. The bone windows show no evidence for a fracture or for a destructive lesion. There is a calcified lateral disc bulge to the left at C6-C7. This does result in mild spinal stenosis and narrowing of the neural foramen on the left. IMPRESSION: 1. There is mild deformity of the supraglottic portion of the larynx. However, there is no sign of a laryngeal mass to suggest neoplasm. There is no adenopathy identified either. 2. If clinical concern regarding an underlying neoplastic process persists, then PET/CT will be recommended. 3. There is no acute abnormality of the neck. 4. There is degenerative disc and bony disease at C6-C7 on the left. There is mild spinal stenosis and neuroforaminal narrowing on the left at this level. Dictated by: Dictated on workstation # [id number]
== END ==
LOC: RAD 10:57
PROVIDERS: ATTEND Nurse Practitioner Primary Care
DX: C32.9 Malignant neoplasm of larynx, unspecified (principal); M48.02 Spinal stenosis, cervical region; M50.323 Other cervical disc degeneration at C6-C7 level; Z90.02 Acquired absence of larynx
CPT/HCPCS: 36415; 70491; 80053

== ENCOUNTER 2019-06-28 14:16 | Inpatient (IN) | payer MEDICARE, OTHER ==
[~2019-06-28] VITALS: Ht 188 cm; Wt 117.5 kg
[2019-06-28] MEDS ORDERED: CLINDAMYCIN 900 MG/50 ML IVPB 50 ML IV ONE (14:30)
--- NOTE | 2019-06-28 14:34 | ED EENT ---
History of Present Illness General Stated Complaint: LIP SWELLING Source: patient Exam Limitations: no limitations History of Present Illness Date Seen by Provider: Jun 28, 2019 Time Seen by Provider: 14:32 Initial Comments To ER with lower lip swelling for about a week. No fevers or chills. He does have 2 sores to the inferior aspect bottom lip. He doesn't wear his bottom dentures so his bottom lip is always everted. His who sees him daily hasn't noticed the swelling until this morning. Painful swallowing and talking. Timing/Duration: abrupt Severity: moderate Location: mouth, throat Associated Symptoms: denies symptoms Allergies and Home Medications Allergies Coded Allergies: No Known Drug Allergies (Unverified , 06/28/19) Home Medications Amlodipine Besylate 10 Mg Tablet, 10 MG PO DAILY, (Reported) Aspirin 81 Mg Tab.chew, 81 MG PO DAILY, (Reported) Atorvastatin Calcium 80 Mg Tablet, 80 MG PO DAILY, (Reported) Glimepiride 4 Mg Tablet, 4 MG PO DAILY, (Reported) Hydrocodone/Acetaminophen 1 Each Tablet, 1 TAB PO BID PRN for PAIN-MODERATE, ( Reported) Metformin HCl 500 Mg Tablet, 1,000 MG PO BID, (Reported) Pantoprazole Sodium 40 Mg Tablet.dr, 40 MG PO DAILY, (Reported) Patient Home Medication List Home Medication List Reviewed: Yes Review of Systems Review of Systems Constitutional: see HPI Eyes: No Symptoms Reported Ears: No Symptoms Reported Nose: no symptoms reported Mouth: no symptoms reported Throat: see HPI Respiratory: no symptoms reported Cardiovascular: no symptoms reported Past Fjqurcr-Hxeweb-Wozjrq Hx Patient Social History Former Smoker, Quit: Dec 24, 2008 2nd Hand Smoke Exposure: No Recent Foreign Travel: No Contact w/Someone Who Travel: No Recent Hopitalizations: No Immunizations Up To Date Date of Influenza Vaccine: Aug 03, 2018 Seasonal Allergies Seasonal Allergies: No Past Medical History Surgeries: Yes (HEMORROIDECTOMY, THROAT CA) Gallbladder Respiratory: No Cardiac: Yes High Cholesterol, Hypertension Neurological: No Sexually Transmitted Disease: No HIV/AIDS: No Genitourinary: No Gastrointestinal: Yes Gastroesophageal Reflux, Chronic Constipation Musculoskeletal: Yes Chronic Back Pain Endocrine: Yes Diabetes, Non-Insulin dep HEENT: Yes (GLASSES, DENTURES) Loss of Vision: Bilateral Hearing Impairment: Denies Cancer: Yes (THROAT) Did You Recieve Any Treatments: Yes What Type of Treatment Did You: Radiation, Surgical Intervention Psychosocial: Yes Depression Integumentary: No Blood Disorders: No Adverse Reaction/Blood Tranf: No (N/A) Physical Exam Vital Signs Vital Signs - First Documented 06/28/19 14:20 Temp 98.9 Pulse 101 Resp 18 B/P (MAP) 136/88 (104) Pulse Ox 94 Height, Weight, BMI Height: 6'2.00" Weight: 275lbs. 0.0oz. 124.228291hx; 35.3 BMI Method: General Appearance: WD/WN, no apparent distress Eyes: bilateral eye normal inspection, bilateral eye PERRL, bilateral eye EOMI Ears: bilateral ear auricle normal, bilateral ear canal normal, bilateral ear TM normal Mouth/Throat: other (induration, tender to palp submandibular region. The bottom lip is swollen. Also a draining pustule to the inferior aspect of the fold of the bottom lip. Culture collected and sent to lab. ) Neck: non-tender, full range of motion, tender midline, other (there is induration and tenderness to the submandibular space. To the exterior surface of the mandible the need for hold of the everted bottom lip there are 3 pustules, purulent material is expressed from one of them.) Respiratory: normal breath sounds, no respiratory distress, no accessory muscle use Gastrointestinal: normal bowel sounds, non tender, soft Neurologic/Psychiatric: alert, normal mood/affect, oriented x 3 Progress/Results/Core Measures Results/Orders Lab Results Laboratory Tests Test 06/28/19 14:30 06/28/19 14:41 Range/Units White Blood Count 9.8 4.3-11.0 10^3/uL Red Blood Count 5.12 4.35-5.85 10^6/uL Hemoglobin 14.6 13.3-17.7 G/DL Hematocrit 43 40-54 % Mean Corpuscular Volume 84 80-99 FL Mean Corpuscular Hemoglobin 29 25-34 PG Mean Corpuscular Hemoglobin Concent 34 32-36 G/DL Red Cell Distribution Width 13.7 10.0-14.5 % Platelet Count 176 130-400 10^3/uL Mean Platelet Volume 10.0 7.4-10.4 FL Neutrophils (%) (Auto) 67 42-75 % Lymphocytes (%) (Auto) 18 12-44 % Monocytes (%) (Auto) 14 H 0-12 % Eosinophils (%) (Auto) 1 0-10 % Basophils (%) (Auto) 0 0-10 % Neutrophils # (Auto) 6.6 1.8-7.8 X 10^3 Lymphocytes # (Auto) 1.8 1.0-4.0 X 10^3 Monocytes # (Auto) 1.3 H 0.0-1.0 X 10^3 Eosinophils # (Auto) 0.1 0.0-0.3 10^3/uL Basophils # (Auto) 0.0 0.0-0.1 10^3/uL Sodium Level 139 135-145 MMOL/L Potassium Level 4.0 3.6-5.0 MMOL/L Chloride Level 106 98-107 MMOL/L Carbon Dioxide Level 21 21-32 MMOL/L Anion Gap 12 5-14 MMOL/L Blood Urea Nitrogen 19 H 7-18 MG/DL Creatinine 0.92 0.60-1.30 MG/DL Estimat Glomerular Filtration Rate > 60 BUN/Creatinine Ratio 21 Glucose Level 161 H 70-105 MG/DL Calcium Level 9.9 8.5-10.1 MG/DL Corrected Calcium 9.7 8.5-10.1 MG/DL Total Bilirubin 1.5 H 0.1-1.0 MG/DL Aspartate Amino Transf (AST/SGOT) 17 5-34 U/L Alanine Aminotransferase (ALT/SGPT) 20 0-55 U/L Alkaline Phosphatase 88 40-136 U/L Total Protein 7.6 6.4-8.2 GM/DL Albumin 4.2 3.2-4.5 GM/DL Lactic Acid Level 1.81 0.50-2.00 MMOL/L My Orders Orders - JEREMIAH AVENDAÑO APRN Ed Iv/Invasive Line Start (06/28/19 14:29) Cbc With Automated Diff (06/28/19 14:29) Comprehensive Metabolic Panel (06/28/19 14:29) Blood Culture (06/28/19 14:29) Lactic Acid Analyzer (06/28/19 14:29) Ct Neck (Soft Tissue) W (06/28/19 14:29) Clindamycin 900 Mg/50 Ml Ivpb (Cleocin P (06/28/19 14:30) Wound Culture (06/28/19 14:37) Iohexol Injection (Omnipaque 350 Mg/Ml 1 (06/28/19 15:00) Received Contrast (Hold Metformin- Contr (06/28/19 15:00) Sodium Chloride Flush (Catheter Flush Sy (06/28/19 15:00) Ns (Ivpb) (Sodium Chloride 0.9% Ivpb Bag (06/28/19 15:00) Diphenhydramine Injection (Benadryl Inje (06/28/19 15:15) Medications Given in ED Current Medications Medications Dose Ordered Sig/Jose Route Start Time Stop Time Status Last Admin Dose Admin Clindamycin Phosphate/Dextrose 50 ml @ 100 mls/hr ONCE ONCE IV 06/28/19 14:30 06/28/19 14:59 DC 06/28/19 14:51 100 MLS/HR Diphenhydramine HCl 25 mg ONCE ONCE IVP 06/28/19 15:15 06/28/19 15:16 DC 06/28/19 15:29 25 MG Iohexol 100 ml ONCE ONCE IV 06/28/19 15:00 06/28/19 15:01 DC 06/28/19 15:41 75 ML Sodium Chloride 10 ml NEEDED PRN IV 06/28/19 15:00 06/28/19 15:41 10 ML Sodium Chloride 100 ml ONCE ONCE IV 06/28/19 15:00 06/28/19 15:01 DC 06/28/19 15:41 80 ML Vital Signs/I&O 06/28/19 06/28/19 06/28/19 06/28/19 14:20 16:18 17:00 17:00 Temp 98.9 98.9 100.2 100.2 Pulse 101 101 88 88 Resp 18 18 20 20 B/P (MAP) 136/88 (104) 136/88 (104) 145/75 145/75 (98) Pulse Ox 94 94 96 96 O2 Delivery Room Air Room Air 06/28/19 06/28/19 18:11 20:02 Temp 99.5 Pulse 98 Resp 20 B/P (MAP) 142/82 (102) Pulse Ox 96 95 O2 Delivery Room Air Room Air Diagnostic Imaging Diagonstic Imaging: CT Comments NAME: ELOY DAY [facility] REC#: [id number] PT STATUS: REG ER : 1950 PHYSICIAN: JEREMIAH AVENDAÑO APRN ADMIT DATE: 06/28/19/ER Draft Date of Exam:06/28/19 CT NECK (SOFT TISSUE) W PROCEDURE: CT neck soft tissue with contrast. TECHNIQUE: Multiple contiguous axial images were obtained through the neck after the administration of contrast. Auto Exposure Controls were utilized during the CT exam to meet ALARA standards for radiation dose reduction. INDICATION: Swelling, pain. COMPARISON: 04/08/2019. FINDINGS: The minimally visualized intracranial contents are grossly unremarkable. Significant soft tissue prominence and swelling of the inferior lip with associated skin thickening and underlying subcutaneous fat stranding. Adjacent prominent submental lymph nodes are identified bilaterally. These lymph nodes have increased in size since the prior examination. No focal fluid collection is seen within this region. No osseous destruction. The patient is predominantly edentulous. The epiglottis and aryepiglottic folds are unremarkable. Piriform sinuses are symmetric. The airway is patent. The muscles of mastication are unremarkable. Parapharyngeal fat is symmetric and well maintained. Visualized portions of the salivary glands are unremarkable. The thyroid gland is unremarkable. Mucus retention cyst within the left maxillary sinus. Otherwise, the minimally visualized paranasal sinuses are clear. Scattered osseous degenerative changes without acute osseous abnormality within the cervical spine. No apical pneumothorax. IMPRESSION: Significant enlargement and inflammatory stranding associated with the inferior lip with associated findings suggestive of cellulitis overlying the chin inferiorly near midline. This is associated with reactive adenopathy. No evidence of osseous destruction or drainable focal fluid collection. Additional findings as above. Dictated on workstation # [id number] Dict: 06/28/19 1549 Trans: 06/28/19 1601 [id number] Interpreted by: NACHO GALVAN MD Electronically signed by: Departure Communication (Admissions) Time/Spoke to Admitting Phy: 14:[address] Solorzano. Will admit on vanc+zosyn, consult to surgery. Dr Ortiz notified. Suspect ludwigs angina given the pustule on the exterior surface of the lip. However he is afebrile and without leukocytosis. Angioedema would be within the differential. Impression Primary Impression: Ludwigs angina Disposition: ADMITTED INPATIENT Condition: Stable Admissions Decision to Admit Reason: Admit from ER (General) Decision to Admit/Date: Jun 28, 2019 Time/Decision to Admit Time: 14:33 Departure-Patient Inst. Referrals: [facility]/Danny (PCP) Primary Care Physician ELI HAYNES APRN (Family) Primary Care Physician JEREMIAH AVENDAÑO APRN Jun 28, 2019 14:34
[2019-06-28 14:38] LABS: BASOPHILS % (AUTO) 0 % (0-10); EOSINOPHILS # (AUTO) 0.1 10^3/uL (0.0-0.3); EOSINOPHILS % (AUTO) 1 % (0-10); HEMATOCRIT 43 % (40-54); HEMOGLOBIN 14.6 G/DL (13.3-17.7); LYMPHOCYTES # (AUTO) 1.8 X 10^3 (1.0-4.0); LYMPHOCYTES % (AUTO) 18 % (12-44); MEAN CORPUSCULAR HEMOGLOBIN 29 PG (25-34); MEAN CORPUSCULAR HGB CONC 34 G/DL (32-36); MEAN CORPUSCULAR VOLUME 84 FL (80-99); MONOCYTES # (AUTO) 1.3 X 10^3 (0.0-1.0); MONOCYTES % (AUTO) 14 % (0-12); NEUTROPHILS # (AUTO) 6.6 X 10^3 (1.8-7.8); NEUTROPHILS % (AUTO) 67 % (42-75); PLATELET COUNT 176 10^3/uL (130-400); RED CELL DISTRIBUTION WIDTH 13.7 % (10.0-14.5); WHITE BLOOD COUNT 9.8 10^3/uL (4.3-11.0)
[2019-06-28] MEDS ORDERED: HOLD METFORMIN - RECEIVED CONTRAST 20 ML VIAL IV SCH (15:00)
[2019-06-28] MEDS ORDERED: CATHETER FLUSH 10 ML SYR IV PRN (15:00)
[2019-06-28] MEDS ORDERED: NS 100 ML (IVPB) BAG IV ONE (15:00)
[2019-06-28] MEDS ORDERED: IOHEXOL 350 MG/ML 100 ML (OMNIPAQUE 350) VIAL IV ONE (15:00)
[2019-06-28] MEDS ORDERED: diphenhydrAMINE 50 MG/ML INJ (BENADRYL) IVP ONE (15:15)
[2019-06-28 15:19] LABS: ALANINE AMINOTRANSFERASE 20 U/L (0-55); ALBUMIN 4.2 GM/DL (3.2-4.5); ALKALINE PHOSPHATASE 88 U/L (40-136); BILIRUBIN,TOTAL 1.5 MG/DL (0.1-1.0); BUN/CREATININE RATIO 21; CALCIUM 9.9 MG/DL (8.5-10.1); CARBON DIOXIDE 21 MMOL/L (21-32); CHLORIDE 106 MMOL/L (98-107); CREATININE SERUM 0.92 MG/DL (0.60-1.30); GFR ESTIMATED > 60; GLUCOSE 161 MG/DL (70-105); SODIUM 139 MMOL/L (135-145); TOTAL PROTEIN 7.6 GM/DL (6.4-8.2)
--- NOTE | 2019-06-28 16:02 | Diagnostic Imaging Report ---
PROCEDURE: CT neck soft tissue with contrast. TECHNIQUE: Multiple contiguous axial images were obtained through the neck after the administration of contrast. Auto Exposure Controls were utilized during the CT exam to meet ALARA standards for radiation dose reduction. INDICATION: Swelling, pain. COMPARISON: 04/08/2019. FINDINGS: The minimally visualized intracranial contents are grossly unremarkable. Significant soft tissue prominence and swelling of the inferior lip with associated skin thickening and underlying subcutaneous fat stranding. Adjacent prominent submental lymph nodes are identified bilaterally. These lymph nodes have increased in size since the prior examination. No focal fluid collection is seen within this region. No osseous destruction. The patient is predominantly edentulous. The epiglottis and aryepiglottic folds are unremarkable. Piriform sinuses are symmetric. The airway is patent. The muscles of mastication are unremarkable. Parapharyngeal fat is symmetric and well maintained. Visualized portions of the salivary glands are unremarkable. The thyroid gland is unremarkable. Mucus retention cyst within the left maxillary sinus. Otherwise, the minimally visualized paranasal sinuses are clear. Scattered osseous degenerative changes without acute osseous abnormality within the cervical spine. No apical pneumothorax. IMPRESSION: Significant enlargement and inflammatory stranding associated with the inferior lip with associated findings suggestive of cellulitis overlying the chin inferiorly near midline. This is associated with reactive adenopathy. No evidence of osseous destruction or drainable focal fluid collection. Additional findings as above. Dictated by: Dictated on workstation # [id number]
--- NOTE | 2019-06-28 16:18 | NUR ---
REPORT TAKEN FROM SOFI SCHWARZ AT THIS TIME, THIS RN WILL ASSUME CARE OF THIS PATIENT WHEN HE ARRIVES TO THIS FLOOR.
[2019-06-28 17:00] VITALS: BP 145/75
[2019-06-28] MEDS ORDERED: LACTATED RINGERS 1,000 ML IV ONE (17:44)
[2019-06-28] MEDS ORDERED: NS IV 1000 ML 1,000 ML IV SCH (17:45)
[2019-06-28] MEDS: LACTATED RINGERS 1,000 ML IV SCH (17:56)
[2019-06-28] MEDS ORDERED: PIPERACILLIN/TAZOBACTAM (BULK) 4.5 GM in NS (IVPB) 100 ML IV SCH (20:00)
[2019-06-28 20:02] VITALS: BP 142/82
[2019-06-28] MEDS ORDERED: NS (IVPB) 100 ML ONE (20:11)
[2019-06-28] MEDS ORDERED: PIPERACILLIN/TAZO 4.5 GM VIAL (ZOSYN) IV ONE (20:11)
[2019-06-28] MEDS: KETOROLAC 30 MG/ML VIAL ONE ×2 (20:21→20:34)
[2019-06-28] MEDS: KETOROLAC 15 MG/ML VIAL IVP PRN (20:23)
--- NOTE | 2019-06-28 20:43 | CONSULTATION REPORT ---
DATE OF SERVICE: ATTENDING STEAM PRESSURE CHAMBER OPERATOR: Tiik Sellers APRN ADMITTING PHYSICIAN: Dr. Solorzano. HISTORY OF PRESENT ILLNESS: The patient is a 68-year-old male who presents with pain and swelling along the left lower lip extending into the midline chin. He has dentures; however, states that he does not wear his lower dentures most of the time and this does cause eversion of his lower lip and at times, he may bite his lower lip as well. He noticed 1 week ago two sores along the lower lip which became red, edematous and then the redness and swelling also extended inferiorly towards the midline chin. There is no fluctuance to indicate any abscess. PAST MEDICAL HISTORY: History of oropharyngeal cancer, hypercholesterolemia, hypertension, gastroesophageal reflux disease, constipation, degenerative joint disease, diabetes, depression. PAST SURGICAL HISTORY: Hemorrhoidectomy, laparoscopic cholecystectomy. ALLERGIES: No known drug allergies. MEDICATIONS: Amlodipine 10 mg daily, aspirin 81 mg daily, atorvastatin 80 mg daily, glimepiride 4 mg daily, metformin 500 mg b.i.d., Protonix 40 mg daily, hydrocodone p.r.n. SOCIAL HISTORY: Negative smoke, negative alcohol. REVIEW OF SYSTEMS: This is a well-nourished male currently in no acute distress. He is not experiencing any shortness of breath or difficulty in breathing. No chest pain, palpitations or diaphoresis. No nausea or vomiting, no diarrhea or constipation. No fever or chills, no recent inadvertent weight loss. All other review of systems negative. PHYSICAL EXAMINATION: VITAL SIGNS: Temperature 100.2, blood pressure 145/75, pulse 80, respirations 20, pulse ox 96% on room air. CHEST: Clear. Good breath sounds bilaterally. HEART: Regular, no murmurs. EXTREMITIES: No lower extremity edema, negative Homans sign. HEENT: There is swelling and redness as well as two small open sores of the left lower lip with cellulitis extending inferiorly towards the midline chin. No fluctuance to indicate any abscess. ABDOMEN: Soft, nontender, nondistended. SKIN: Warm, dry. LABORATORY DATA: WBC 9.8, hemoglobin 14.6, hematocrit 43, platelets 176. BUN 19, creatinine 0.92. ASSESSMENT AND PLAN: A 68-year-old male with cellulitis of the lower lip and chin. We will proceed with IV antibiotics and continued monitoring for resolution of the cellulitis as well as worsening or abscess formation. Job ID: [id number] DocumentID: [id number] Dictated Date: 06/28/2019 20:12:24 Metalizing Machine Operator Automatic Date: 06/28/2019 20:43:08 Dictated By: ELIJAH LYON MD
[2019-06-28] MEDS ORDERED: VANCOMYCIN INJECTION 1GM (OMNI 250 ML IV ONE (20:57)
[2019-06-28] MEDS ORDERED: VANCOMYCIN INJECTION 1,000 MG in NS (IVPB) 250 ML IV SCH (21:00)
[2019-06-28] MEDS ORDERED: HYDROcodone/APAP 5 MG/325 MG (LORTAB) TAB ONE (22:33)
--- NOTE | 2019-06-28 22:36 | NUR ---
PT REPORTS CONTINUED PAIN RATED AT 8 AFTER PRN TORADOL ADMIN AT 2022. DR WHELAN ORDER TO RESTART HOME PAIN MED, HYDROCODONE/APAP 5/325 MG.
[2019-06-28] MEDS ORDERED: NON-FORMULARY MEDICATION 1 EA EA (Hydrocodone/Acetaminophen (Hydrocodone-Acetamin 5-325 mg PO PRN (22:45)
[2019-06-28] MEDS ORDERED: HYDROcodone/APAP 5 MG/325 MG (LORTAB) TAB PO ONE (22:47)
[2019-06-28 23:25] VITALS: BP 153/70
[2019-06-29] MEDS: PIPERACILLIN/TAZO 4.5 GM/NS 100 ML IV SCH ×6 (02:00→17:32)
[2019-06-29] MEDS ORDERED: PIPERACILLIN/TAZO 4.5 GM VIAL (ZOSYN) IV ONE (02:01)
[2019-06-29] MEDS ORDERED: NS (IVPB) 100 ML ONE (02:01)
[2019-06-29 04:00] VITALS: BP 144/68
[2019-06-29] MEDS: LACTATED RINGERS 1,000 ML IV SCH ×2 (05:12→05:45)
[2019-06-29 05:22] LABS: BASOPHILS % (AUTO) 0 % (0-10); EOSINOPHILS # (AUTO) 0.1 10^3/uL (0.0-0.3); EOSINOPHILS % (AUTO) 2 % (0-10); HEMATOCRIT 43 % (40-54); HEMOGLOBIN 14.7 G/DL (13.3-17.7); LYMPHOCYTES # (AUTO) 1.1 X 10^3 (1.0-4.0); LYMPHOCYTES % (AUTO) 16 % (12-44); MEAN CORPUSCULAR HEMOGLOBIN 29 PG (25-34); MEAN CORPUSCULAR HGB CONC 34 G/DL (32-36); MEAN CORPUSCULAR VOLUME 85 FL (80-99); MEAN PLATELET VOLUME 10.4 FL (7.4-10.4); MONOCYTES # (AUTO) 0.9 X 10^3 (0.0-1.0); MONOCYTES % (AUTO) 13 % (0-12); NEUTROPHILS # (AUTO) 4.7 X 10^3 (1.8-7.8); NEUTROPHILS % (AUTO) 69 % (42-75); PLATELET COUNT 133 10^3/uL (130-400); RED CELL DISTRIBUTION WIDTH 13.3 % (10.0-14.5); WHITE BLOOD COUNT 6.9 10^3/uL (4.3-11.0)
[2019-06-29 05:44] LABS: ALANINE AMINOTRANSFERASE 20 U/L (0-55); ALKALINE PHOSPHATASE 80 U/L (40-136); BILIRUBIN,TOTAL 1.5 MG/DL (0.1-1.0); BUN/CREATININE RATIO 19; CALCIUM 9.5 MG/DL (8.5-10.1); CARBON DIOXIDE 23 MMOL/L (21-32); CHLORIDE 105 MMOL/L (98-107); CREATININE SERUM 0.84 MG/DL (0.60-1.30); GFR ESTIMATED > 60; GLUCOSE 142 MG/DL (70-105); POTASSIUM 3.4 MMOL/L (3.6-5.0); SODIUM 140 MMOL/L (135-145); TOTAL PROTEIN 7.2 GM/DL (6.4-8.2)
[2019-06-29] MEDS: KETOROLAC 15 MG/ML VIAL IVP PRN (05:52)
--- NOTE | 2019-06-29 07:32 | NUR ---
VANCOMYCIN DOSING SCR 0.84 (USED 1.0); CRCL ~ 97; VANC 1 GM GIVEN IN ED AT 21:16 - VANC 15 MG/KG X 117 KG ~ 1750 MG Q12H CHECK TROUGH LEVEL 06/30 1830 HOLD DOSE AND CONTACT PHARMACY IF LEVEL IS GREATER THAN 20
[2019-06-29 08:00] VITALS: BP 130/82
[2019-06-29] MEDS: VANCOMYCIN 1,750 MG/NS 500 ML IVPB IV SCH ×4 (08:42→21:56)
[2019-06-29] MEDS: HYDROcodone/APAP 5 MG/325 MG (LORTAB) TAB PO PRN ×2 (08:43→21:59)
[2019-06-29 12:00] VITALS: BP 123/67
[2019-06-29] MEDS ORDERED: ATOR10TA66 PO (13:45)
[2019-06-29] MEDS ORDERED: BACL10TA PO (13:46)
[2019-06-29] MEDS ORDERED: FLUO20CA42 PO (13:46)
[2019-06-29] MEDS ORDERED: ASPI-808 PO (13:46)
[2019-06-29] MEDS ORDERED: DOCU-238 PO (13:46)
[2019-06-29] MEDS ORDERED: BENZ1TAB6 PO (14:18)
[2019-06-29] MEDS ORDERED: CLOR7.5T3 PO (14:18)
--- NOTE | 2019-06-29 14:19 | NUR ---
SPOKE WITH PT WELL CALLING [facility] TO COMPLETE THE MED REC. PT WAS ABLE TO TELL ME HOW HE HIS MEDS. 02-10-2019 NORCO 5/325MG #56/28DS NO OTC MEDICATIONS
--- NOTE | 2019-06-29 15:22 | History & Physical ---
LINA UGALDE,MED STUDENT 06/29/19 1522: HPI History of Present Illness: 68 yo male presents with lip swelling. He states the swelling began over 2 weeks ago and has slowly progressed, it worsened just before the holiday weekend. He tried to go to a walk-in clinic but it was closed for the holiday so he was seen in the emergency department 06/28/19. He has swelling of how bottom lip and complains of neck and throat pain and speech problems. He denies any N/V, change to bowel habits, tingling/numbness, weakness, headaches, or fevers. He has a history of throat cancer and states he was seen by ENT in [place], [place] 3-4 months ago and was told it was a normal exam. He currently wears dentures but only on the top. He states he had teeth pulled abut 6 months ago due to increasing pain. Source: patient Exam Limitations: other (speech difficult to understand) Date seen by provider: Jun 29, 2019 Time Seen by Provider: 12:30 Attending Physician Gabo Nice MD [facility] Consult Date of Admission Jun 28, 2019 at 16:19 Home Medications Home Medications Reviewed patient Home Medication Reconciliation performed by pharmacy medication reconciliations blow mold technician and/or nursing. Patients Allergies have been reviewed. Allergies Coded Allergies: No Known Drug Allergies (Unverified , 06/28/19) [id number] Hx Patient Social History Marrital Status: Employed/Student: retired Alcohol Use: Denies Use Recreational Drug Use: No Smoking Status: Former Smoker (quit in 2008) 2nd Hand Smoke Exposure: No Recent Foreign Travel: No Contact w/other who traveled: No Recent Hopitalizations: No Recent Infectious Disease Expo: No Immunizations Up To Date Date of Influenza Vaccine: Aug 03, 2018 Past Medical History hypertension DM hypercholesterolemia GERD chronic constipation chronic back pain throat cancer Surgical history: cholecystectomy hemorrhoidectomy surgery/radiation for throat cancer Review of Systems ([facility]) Constitutional: No chills, No fever, No weakness EENTM: dental problems (wears dentures), throat pain; No mouth pain Respiratory: No cough; short of breath Cardiovascular: No chest pain Gastrointestinal: No abdominal pain, No constipation, No diarrhea, No nausea, No vomiting Musculoskeletal: back pain (chronic), neck pain Skin: No pruritus; other (swelling of lower lip) Psychiatric/Neurological: Denies Headache, Denies Numbness, Denies Paresthesia, Denies Tingling, Denies Weakness Reviewed Test Results Reviewed Test Results Lab Laboratory Tests 06/28/19 14:30: White Blood Count 9.8, Red Blood Count 5.12, Hemoglobin 14.6, Hematocrit 43, Mean Corpuscular Volume 84, Mean Corpuscular Hemoglobin 29, Mean Corpuscular Hemoglobin Concent 34, Red Cell Distribution Width 13.7, Platelet Count 176, Mean Platelet Volume 10.0, Neutrophils (%) (Auto) 67, Lymphocytes (%) (Auto) 18, Monocytes (%) (Auto) 14H, Eosinophils (%) (Auto) 1, Basophils (%) (Auto) 0, Neutrophils # (Auto) 6.6, Lymphocytes # (Auto) 1.8, Monocytes # (Auto) 1.3H, Eosinophils # (Auto) 0.1, Basophils # (Auto) 0.0, Sodium Level 139, Potassium Level 4.0, Chloride Level 106, Carbon Dioxide Level 21, Anion Gap 12, Blood Urea Nitrogen 19H, Creatinine 0.92, Estimat Glomerular Filtration Rate > 60, BUN/Creatinine Ratio 21, Glucose Level 161H, Calcium Level 9.9, Corrected Calcium 9.7, Total Bilirubin 1.5H, Aspartate Amino Transf (AST/SGOT) 17, Alanine Aminotransferase (ALT/SGPT) 20, Alkaline Phosphatase 88, Total Protein 7.6, Albumin 4.2 06/28/19 14:41: Lactic Acid Level 1.81 06/29/19 04:41: White Blood Count 6.9, Red Blood Count 5.09, Hemoglobin 14.7, Hematocrit 43, Mean Corpuscular Volume 85, Mean Corpuscular Hemoglobin 29, Mean Corpuscular Hemoglobin Concent 34, Red Cell Distribution Width 13.3, Platelet Count 133, Mean Platelet Volume 10.4, Neutrophils (%) (Auto) 69, Lymphocytes (%) (Auto) 16, Monocytes (%) (Auto) 13H, Eosinophils (%) (Auto) 2, Basophils (%) (Auto) 0, Neutrophils # (Auto) 4.7, Lymphocytes # (Auto) 1.1, Monocytes # (Auto) 0.9, Eosinophils # (Auto) 0.1, Basophils # (Auto) 0.0, Sodium Level 140, Potassium Level 3.4L, Chloride Level 105, Carbon Dioxide Level 23, Anion Gap 12, Blood Urea Nitrogen 16, Creatinine 0.84, Estimat Glomerular Filtration Rate > 60, BUN/Creatinine Ratio 19, Glucose Level 142H, Calcium Level 9.5, Corrected Calcium 9.5, Total Bilirubin 1.5H, Aspartate Amino Transf (AST/SGOT) 16, Alanine Aminotransferase (ALT/SGPT) 20, Alkaline Phosphatase 80, Total Protein 7.2, Albumin 4.0 Microbiology 06/28/19 Gram Stain - Final, Resulted 06/28/19 Wound Culture - Preliminary, Resulted Staphylococcus aureus Radiology Significant enlargement and inflammatory stranding associated with the inferior lip with associated findings suggestive of cellulitis overlying the chin inferiorly near midline. This is associated with reactive adenopathy. No evidence of osseous destruction or drainable focal fluid collection. Physical Exam-([facility]) Physical Exam Vital Signs VS - Last 72 Hours, by Label 06/28/19 06/28/19 06/28/19 06/28/19 14:20 16:18 17:00 17:00 Temp 98.9 98.9 100.2 100.2 Pulse 101 101 88 88 Resp 18 18 20 20 B/P (MAP) 136/88 (104) 136/88 (104) 145/75 145/75 (98) Pulse Ox 94 94 96 96 O2 Delivery Room Air Room Air 06/28/19 06/28/19 06/28/19 06/28/19 18:11 20:00 20:02 23:25 Temp 99.5 99.0 Pulse 98 90 Resp 20 18 B/P (MAP) 142/82 (102) 153/70 (97) Pulse Ox 96 95 96 O2 Delivery Room Air Room Air Room Air Room Air 06/29/19 06/29/19 06/29/19 06/29/19 04:00 08:00 08:00 12:00 Temp 98.6 98.6 97.9 Pulse 88 86 82 Resp 18 20 20 B/P (MAP) 144/68 (93) 130/82 (98) 123/67 (85) Pulse Ox 96 95 96 94 O2 Delivery Room Air Room Air Room Air Room Air Capillary Refill : Less Than 3 Seconds General Appearance: WD/WN, no apparent distress Eyes: Bilateral Eye PERRL, Bilateral Eye EOMI HEENT: pharynx normal, other (no erythema or swelling to inferior gums. Swelling noted over bottom lip, no erythema, reddness, open sores or fluctuance noted) Neck: full range of motion, lymphadenopathy (R), lymphadenopathy (L), other (tenderness over anterior neck) Respiratory: chest non-tender, lungs clear, normal breath sounds, no respiratory distress, no accessory muscle use Cardiovascular: regular rate, rhythm, no edema, no murmur Gastrointestinal: normal bowel sounds, non tender, soft Extremities: normal range of motion, no pedal edema Neurologic/Psychiatric: conditioning machine operator II-XII nml as tested, no motor/sensory deficits, alert, normal mood/affect, oriented x 3 Skin: normal color, warm/dry; No rash Assessment/Plan Assessment/Plan Assessment & Plan Lower lip cellulitis. Will proceed with IV antibiotics and continue to monitor for worsening symptoms as well as development of abscess or increased shortness of breath. Lab ordered to determine if angioedema may be present. Clinical Quality Measures DVT/VTE Risk/Contraindication: Risk Factor Score Per Nursin RFS Level Per Nursing on Admit: 3=High GABO NICE MD 06/29/19 1911: Home Medications Allergies Coded Allergies: No Known Drug Allergies (Unverified , 06/28/19) Physical Exam-([facility]) Physical Exam Neurologic/Psychiatric: other (stutter- he reports chronic with worsening recently, and difficult to understand speech) Assessment/Plan Assessment/Plan Admission Status: Inpatient Order (span 2 midnights) Reason for Inpatient Admission: Severe lip swelling and submandibular space abnormalities, risk for respiratory compromise, requiring IV antibiotics. Assessment & Plan See problem list (1) Ludwigs angina Status: Acute Assessment & Plan: Possible, started on Zosyn and Vancomycin. However, not entirely typical given no fever, erythema and he does have lymphadenopathy. No intraoral evidence of infection. Consider angioedema, no clear inciting event, check complement C4. No respiratory difficulty at this time, monitor closely. No evidence of sepsis. Blood culture and culture from ulceration done in ER pending. (2) Chronic low back pain Status: Chronic Assessment & Plan: Resume home hydrocodone, baclofen. (3) Hypertension Status: Chronic Assessment & Plan: Resume home amlodipine. Qualifiers: Qualified Codes: I10 - Essential (primary) hypertension (4) DVT prophylaxis Status: Acute Assessment & Plan: Enoxaparin Supervisory-Addendum Brief Verification & Attestation Participated in pt care: history, MDM, physical Personally performed: exam, history, MDM Care discussed with: Medical Student Procedures: n/a Verification and Attestation of Medical Student E/M Service A medical student performed and documented this service in my presence. I reviewed and verified all information documented by the medical student and made modifications to such information, when appropriate. I personally performed the physical exam and medical decision making. See problem list for my assessment and plan. Gabo Nice, Jun 29, 2019,19:13 LINA UGALDE,MED STUDENT Jun 29, 2019 15:22 GABO NICE MD Jun 29, 2019 19:11
[2019-06-29] MEDS ORDERED: CLORAZEPATE DIPOTASSIUM 7.5 MG PO PRN (15:30)
[2019-06-29] MEDS ORDERED: NON-FORMULARY MEDICATION 1 EA EA (Docusate Sodium (Stool Softener) 100 MG) PO PRN (15:30)
[2019-06-29] MEDS ORDERED: DOCUSATE SODIUM 100 MG (COLACE) CAP PO PRN (15:45)
[2019-06-29] MEDS ORDERED: CLORAZEPATE 7.5 MG (TRANXENE) TAB PO PRN (15:45)
--- NOTE | 2019-06-29 15:45 | Progress Note ---
Subjective Date Seen by a Provider: Jun 29, 2019 Time Seen by a Provider: 12:00 Subjective/Events-last exam doing better. slightly less edema lower lip. tolerating diet. no fever/chills. no fluctuance. Focused Exam Lactate Level 06/28/19 14:41: Lactic Acid Level 1.81 Objective Exam Vital Signs Date Time Temp Pulse Resp B/P (MAP) Pulse Ox O2 Delivery O2 Flow Rate FiO2 06/29/19 12:00 97.9 82 20 123/67 (85) 94 Room Air 06/29/19 08:00 96 Room Air 06/29/19 08:00 98.6 86 20 130/82 (98) 95 Room Air 06/29/19 04:00 98.6 88 18 144/68 (93) 96 Room Air 06/28/19 23:25 99.0 90 18 153/70 (97) 96 Room Air 06/28/19 20:02 99.5 98 20 142/82 (102) 95 Room Air 06/28/19 20:00 Room Air 06/28/19 18:11 96 Room Air 06/28/19 17:00 100.2 88 20 145/75 (98) 96 Room Air 06/28/19 17:00 100.2 88 20 145/75 96 Room Air 06/28/19 16:18 98.9 101 18 136/88 (104) 94 I & O 06/29/19 07:00 Intake Total 1770 ml Output Total 400 ml Balance 1370 ml Capillary Refill : Less Than 3 Seconds General Appearance: No Apparent Distress HEENT: PERRL/EOMI Neck: Full Range of Motion Respiratory: Chest Non Tender, Lungs Clear, Normal Breath Sounds Cardiovascular: Regular Rate, Rhythm Gastrointestinal: normal bowel sounds Extremity: Normal Capillary Refill Neurologic/Psychiatric: Alert, Oriented x3 Skin: Normal Color Lymphatic: No Adenopathy Results Lab Laboratory Tests 06/29/19 00:00: 06/29/19 04:41: White Blood Count 6.9, Red Blood Count 5.09, Hemoglobin 14.7, Hematocrit 43, Mean Corpuscular Volume 85, Mean Corpuscular Hemoglobin 29, Mean Corpuscular Hemoglobin Concent 34, Red Cell Distribution Width 13.3, Platelet Count 133, Mean Platelet Volume 10.4, Neutrophils (%) (Auto) 69, Lymphocytes (%) (Auto) 16, Monocytes (%) (Auto) 13H, Eosinophils (%) (Auto) 2, Basophils (%) (Auto) 0, Neutrophils # (Auto) 4.7, Lymphocytes # (Auto) 1.1, Monocytes # (Auto) 0.9, Eosinophils # (Auto) 0.1, Basophils # (Auto) 0.0, Sodium Level 140, Potassium Level 3.4L, Chloride Level 105, Carbon Dioxide Level 23, Anion Gap 12, Blood Urea Nitrogen 16, Creatinine 0.84, Estimat Glomerular Filtration Rate > 60, BUN/Creatinine Ratio 19, Glucose Level 142H, Calcium Level 9.5, Corrected Calcium 9.5, Total Bilirubin 1.5H, Aspartate Amino Transf (AST/SGOT) 16, Alanine Aminotransferase (ALT/SGPT) 20, Alkaline Phosphatase 80, Total Protein 7.2, Albumin 4.0 Microbiology 06/28/19 Gram Stain - Final, Resulted 06/28/19 Wound Culture - Preliminary, Resulted Staphylococcus aureus Assessment/Plan Assessment/Plan Assess & Plan/Chief Complaint lower lip irritation/edema. no fluctuance/abscess. most likely related to inappropriate fitting or or lack of dentures. continue current care and monitoring. Clinical Quality Measures DVT/VTE Risk/Contraindication: Risk Factor Score Per Nursin RFS Level Per Nursing on Admit: 3=High ELIJAH LYON MD Jun 29, 2019 15:45
[2019-06-29] MEDS: ENOXAPARIN 40 MG/0.4 ML (LOVENOX) SYR SC SCH (15:50)
[2019-06-29 16:00] VITALS: BP 137/85
[2019-06-29] MEDS ORDERED: NS IV 1000 ML 1,000 ML IV SCH (17:45)
[2019-06-29 20:00] VITALS: BP 158/84
[2019-06-29] MEDS ORDERED: ATORVASTATIN 10 MG (LIPITOR) TABLET PO SCH (21:00)
[2019-06-29] MEDS ORDERED: BACLOFEN 10 MG (LIORESAL) TAB PO SCH (21:00)
[2019-06-29] MEDS ORDERED: NON-FORMULARY MEDICATION 1 EA EA (Benztropine Mesylate 1 MG) PO SCH (21:00)
[2019-06-29] MEDS: BENZTROPINE MESYLATE 1 MG (COGENTIN) TAB PO SCH (21:56)
[2019-06-30] VITALS: BP 163/92
[2019-06-30] MEDS: PIPERACILLIN/TAZO 4.5 GM/NS 100 ML IV SCH ×4 (02:16→10:32)
[2019-06-30 04:00] VITALS: BP 129/71
[2019-06-30 05:23] LABS: BASOPHILS % (AUTO) 0 % (0-10); EOSINOPHILS # (AUTO) 0.2 10^3/uL (0.0-0.3); EOSINOPHILS % (AUTO) 5 % (0-10); HEMATOCRIT 38 % (40-54); HEMOGLOBIN 12.8 G/DL (13.3-17.7); LYMPHOCYTES # (AUTO) 0.8 X 10^3 (1.0-4.0); LYMPHOCYTES % (AUTO) 19 % (12-44); MEAN CORPUSCULAR HEMOGLOBIN 29 PG (25-34); MEAN CORPUSCULAR HGB CONC 34 G/DL (32-36); MEAN CORPUSCULAR VOLUME 85 FL (80-99); MEAN PLATELET VOLUME 10.3 FL (7.4-10.4); MONOCYTES # (AUTO) 0.7 X 10^3 (0.0-1.0); MONOCYTES % (AUTO) 18 % (0-12); NEUTROPHILS # (AUTO) 2.4 X 10^3 (1.8-7.8); NEUTROPHILS % (AUTO) 59 % (42-75); PLATELET COUNT 133 10^3/uL (130-400); RED CELL DISTRIBUTION WIDTH 13.4 % (10.0-14.5); WHITE BLOOD COUNT 4.1 10^3/uL (4.3-11.0)
[2019-06-30 05:52] LABS: ALANINE AMINOTRANSFERASE 18 U/L (0-55); ALBUMIN 3.6 GM/DL (3.2-4.5); ALKALINE PHOSPHATASE 68 U/L (40-136); BILIRUBIN,TOTAL 0.9 MG/DL (0.1-1.0); BUN/CREATININE RATIO 14; CALCIUM 8.8 MG/DL (8.5-10.1); CARBON DIOXIDE 25 MMOL/L (21-32); CHLORIDE 106 MMOL/L (98-107); CREATININE SERUM 0.87 MG/DL (0.60-1.30); GFR ESTIMATED > 60; GLUCOSE 137 MG/DL (70-105); POTASSIUM 3.5 MMOL/L (3.6-5.0); SODIUM 140 MMOL/L (135-145); TOTAL PROTEIN 6.4 GM/DL (6.4-8.2)
[2019-06-30] MEDS ORDERED: PANTOPRAZOLE 40 MG (PROTONIX) TAB PO SCH (07:00)
[2019-06-30] MEDS: VANCOMYCIN 1,750 MG/NS 500 ML IVPB IV SCH ×2 (07:44)
[2019-06-30 08:00] VITALS: BP 154/76
[2019-06-30] MEDS ORDERED: POTASSIUM CL 10MEQ/50ML IVPB 50 ML IV SCH (08:45)
[2019-06-30] MEDS ORDERED: NON-FORMULARY MEDICATION 1 EA EA (Fluoxetine HCl (Prozac) 20 MG) PO SCH (09:00)
[2019-06-30] MEDS ORDERED: amLODIPine 10 MG (NORVASC) TAB PO SCH (09:00)
[2019-06-30] MEDS ORDERED: NON-FORMULARY MEDICATION 1 EA EA (Amlodipine Besylate 10 MG) PO SCH (09:00)
[2019-06-30] MEDS ORDERED: FLUoxetine HCL 20 MG (PROzac) CAP PO SCH (09:00)
[2019-06-30] MEDS ORDERED: ASPIRIN 325 MG (5 GR) TABLET PO SCH (09:00)
[2019-06-30] MEDS: BENZTROPINE MESYLATE 1 MG (COGENTIN) TAB PO SCH (09:23)
[2019-06-30] MEDS ORDERED: AMOX-358 PO (11:59)
[2019-06-30 12:00] VITALS: BP 120/63
--- NOTE | 2019-06-30 12:06 | Discharge Instructions ---
Discharge [facility] Discharge Medications New, Converted or Re-Newed RX: Transmitted to Pharmacy New Medications: Amoxicillin/Potassium Clav (Augmentin 875-125 Tablet) 1 Each Tablet 1 EACH PO BID, #20 TAB 0 Refills Continued Medications: Amlodipine Besylate (Amlodipine Besylate) 10 Mg Tablet 10 MG PO DAILY, TAB Aspirin (Aspirin) 325 Mg Tablet 325 MG PO DAILY, TAB Atorvastatin Calcium (Atorvastatin Calcium) 10 Mg Tablet 10 MG PO HS, TAB Baclofen (Baclofen) 10 Mg Tablet 10 MG PO HS, TAB Benztropine Mesylate (Benztropine Mesylate) 1 Mg Tablet 1 MG PO BID, TAB Clorazepate Dipotassium (Clorazepate Dipotassium) 7.5 Mg Tablet 7.5 MG PO HS PRN for SLEEP, TAB Docusate Sodium (Stool Softener) 100 Mg Capsule 100 MG PO DAILY PRN for CONSTIPATION-1ST LINE, CAP Fluoxetine HCl (Prozac) 20 Mg Capsule 20 MG PO DAILY, CAP Hydrocodone/Acetaminophen (Hydrocodone-Acetamin 5-325 mg) 1 Each Tablet 1 TAB PO BID PRN for PAIN-MODERATE MDD 10, #70 TAB Metformin HCl (Metformin HCl) 500 Mg Tablet 1000 MG PO BID, TAB Pantoprazole Sodium (Pantoprazole Sodium) 40 Mg Tablet.dr 40 MG PO DAILY, TAB Patient Instructions Goal/Follow Up Appt: Follow up with Cecilia Sellers APRN on Friday at 9:40 am. Return to The Hospital For: Fever, difficulty breathing, difficulty swallowing Activity & Diet Discharge Diet: ADA Diet Activity as Tolerated: Yes Orders-Post D/C & Referrals Pneu Vac Indicated: Yes Copy Copies To 1: EDUARDO Hines BETHANY N MD Jun 30, 2019 12:06
--- NOTE | 2019-06-30 12:33 | Discharge Summary ---
LINA UGALDE,MED STUDENT 06/30/19 1233: Diagnosis/Chief Complaint Date of Admission Jun 28, 2019 at 16:19 Date of Discharge Jun 30, 2019 Admission Diagnosis Admission Diagnosis Submandibular Cellulitis Discharge Diagnosis Facial Cellulitis Problems/Diagnosis: (1) Ludwigs angina Assessment & Plan: Possible, started on Zosyn and Vancomycin. However, not entirely typical given no fever, erythema and he does have lymphadenopathy. No intraoral evidence of infection. Consider angioedema, no clear inciting event, check complement C4. No respiratory difficulty at this time, monitor closely. No evidence of sepsis. Blood culture and culture from ulceration done in ER showing Staphylococcus aureus Status: Acute (2) Chronic low back pain Assessment & Plan: Resume home hydrocodone, baclofen. Status: Chronic (3) Hypertension Assessment & Plan: Resume home amlodipine. Qualifiers: Qualified Codes: I10 - Essential (primary) hypertension Status: Chronic (4) DVT prophylaxis Assessment & Plan: Enoxaparin Status: Acute Chief Complaint/HPI Chief Complaint/HPI 68 yo male presents with lip swelling. He states the swelling began over 2 weeks ago and has slowly progressed, it worsened just before the holiday weekend. He tried to go to a walk-in clinic but it was closed for the holiday so he was seen in the emergency department 06/28/19. He has swelling of the bottom lip and complains of neck/throat pain and speech problems. He denies any N/V, change to bowel habits, tingling/numbness, weakness, headaches, fevers, trouble swallowing, or shortness of breath. He has a history of throat cancer and states he was seen by ENT in [place], [place] 3-4 months ago and was told it was a normal exam. He currently wears dentures but only on the top. He states he had teeth pulled abut 6 months ago due to increasing pain. The swelling has gone down since starting the antibiotics Discharge Summary-Simple/Stand Consultations Discharge Physical Examination Allergies: Coded Allergies: No Known Drug Allergies (Unverified , 06/28/19) Vitals & I&Os Vital Sign - Last 12Hours Date Time Temp Pulse Resp B/P (MAP) Pulse Ox O2 Delivery O2 Flow Rate FiO2 06/30/19 08:00 97.9 74 20 154/76 (102) 96 Room Air Intake and Output 06/30/19 00:00 Intake Total 1950 ml Output Total 300 ml Balance 1650 ml General Appearance: Alert, Oriented X3, No Acute Distress HEENT: PERRLA, EOMI, Mucous Memb Moist/[place] Respiratory: Clear to Auscultation, Normal Air Movement Cardiovascular: Regular Rate, No Murmurs Extremities: No Edema Skin: Other (swelling over bottom lip with some dryness. Small open sore left of midline chin small amount of dried blood noted) Neuro: Strength at 5/5 X4 Ext, Cranial Nerves 3-12 NL Hospital Course See final discharge diagnosis. Labs Laboratory Tests 06/28/19 14:30: White Blood Count 9.8, Red Blood Count 5.12, Hemoglobin 14.6, Hematocrit 43, Mean Corpuscular Volume 84, Mean Corpuscular Hemoglobin 29, Mean Corpuscular Hemoglobin Concent 34, Red Cell Distribution Width 13.7, Platelet Count 176, Mean Platelet Volume 10.0, Neutrophils (%) (Auto) 67, Lymphocytes (%) (Auto) 18, Monocytes (%) (Auto) 14H, Eosinophils (%) (Auto) 1, Basophils (%) (Auto) 0, Neutrophils # (Auto) 6.6, Lymphocytes # (Auto) 1.8, Monocytes # (Auto) 1.3H, Eosinophils # (Auto) 0.1, Basophils # (Auto) 0.0, Sodium Level 139, Potassium Level 4.0, Chloride Level 106, Carbon Dioxide Level 21, Anion Gap 12, Blood Urea Nitrogen 19H, Creatinine 0.92, Estimat Glomerular Filtration Rate > 60, BUN/Creatinine Ratio 21, Glucose Level 161H, Calcium Level 9.9, Corrected Calcium 9.7, Total Bilirubin 1.5H, Aspartate Amino Transf (AST/SGOT) 17, Alanine Aminotransferase (ALT/SGPT) 20, Alkaline Phosphatase 88, Total Protein 7.6, Albumin 4.2 06/28/19 14:41: Lactic Acid Level 1.81 06/29/19 04:41: White Blood Count 6.9, Red Blood Count 5.09, Hemoglobin 14.7, Hematocrit 43, Mean Corpuscular Volume 85, Mean Corpuscular Hemoglobin 29, Mean Corpuscular Hemoglobin Concent 34, Red Cell Distribution Width 13.3, Platelet Count 133, Mean Platelet Volume 10.4, Neutrophils (%) (Auto) 69, Lymphocytes (%) (Auto) 16, Monocytes (%) (Auto) 13H, Eosinophils (%) (Auto) 2, Basophils (%) (Auto) 0, Neutrophils # (Auto) 4.7, Lymphocytes # (Auto) 1.1, Monocytes # (Auto) 0.9, Eosinophils # (Auto) 0.1, Basophils # (Auto) 0.0, Sodium Level 140, Potassium Level 3.4L, Chloride Level 105, Carbon Dioxide Level 23, Anion Gap 12, Blood Urea Nitrogen 16, Creatinine 0.84, Estimat Glomerular Filtration Rate > 60, BUN/Creatinine Ratio 19, Glucose Level 142H, Calcium Level 9.5, Corrected Calcium 9.5, Total Bilirubin 1.5H, Aspartate Amino Transf (AST/SGOT) 16, Alanine Aminotransferase (ALT/SGPT) 20, Alkaline Phosphatase 80, Total Protein 7.2, Albumin 4.0 06/29/19 04:52: 06/30/19 04:52: White Blood Count 4.1L, Red Blood Count 4.48, Hemoglobin 12.8L, Hematocrit 38L, Mean Corpuscular Volume 85, Mean Corpuscular Hemoglobin 29, Mean Corpuscular Hemoglobin Concent 34, Red Cell Distribution Width 13.4, Platelet Count 133, Mean Platelet Volume 10.3, Neutrophils (%) (Auto) 59, Lymphocytes (%) (Auto) 19, Monocytes (%) (Auto) 18H, Eosinophils (%) (Auto) 5, Basophils (%) (Auto) 0, Neutrophils # (Auto) 2.4, Lymphocytes # (Auto) 0.8L, Monocytes # (Auto) 0.7, Eosinophils # (Auto) 0.2, Basophils # (Auto) 0.0, Sodium Level 140, Potassium Level 3.5L, Chloride Level 106, Carbon Dioxide Level 25, Anion Gap 9, Blood Urea Nitrogen 12, Creatinine 0.87, Estimat Glomerular Filtration Rate > 60, BUN/Creatinine Ratio 14, Glucose Level 137H, Calcium Level 8.8, Corrected Calcium 9.1, Total Bilirubin 0.9, Aspartate Amino Transf (AST/SGOT) 16, Alanine Aminotransferase (ALT/SGPT) 18, Alkaline Phosphatase 68, Total Protein 6.4, Albumin 3.6 Microbiology 06/28/19 Blood Culture - Preliminary, Resulted No growth 06/28/19 Gram Stain - Final, Resulted 06/28/19 Wound Culture - Preliminary, Resulted Staphylococcus aureus Pending Labs compliment C4 Radiology Reviewed Significant enlargement and inflammatory stranding associated with the inferior lip with associated findings suggestive of cellulitis overlying the chin inferiorly near midline. This is associated with reactive adenopathy. No evidence of osseous destruction or drainable focal fluid collection. Discussion & Recommendations Begin oral antibiotic. Follow-up with Cecilia Sellers at [facility] on Monday 07/02 at 9:40am. Continue home medications. Return if fever, difficulty breathing, or difficulty swallowing. Discharge Condition at discharge Improved and stable. Instructions to patient/family Please see electronic discharge instructions given to patient. Discharge Medications See discharge instructions Clinical Quality Measures DVT/VTE Risk/Contraindication: Risk Factor Score Per Nursin RFS Level Per Nursing on Admit: 3=High Copy Copies To 1: EDUARDO Hines BETHANY N MD 06/30/192053: Diagnosis/Chief Complaint Discharge Diagnosis Problems/Diagnosis: (1) Ludwigs angina Assessment & Plan: Possible, started on Zosyn and Vancomycin. However, not entirely typical given no fever, erythema and he does have lymphadenopathy. No intraoral evidence of infection. Consider angioedema, no clear inciting event, check complement C4. No respiratory difficulty at this time, monitor closely. No evidence of sepsis. Blood culture and culture from ulceration done in ER showing Staphylococcus aureus 06/30 Unlikely true Ludwigs angina given the lymphadenopathy and CT findings related to lip and skin over chin area, not deep tissue. Culture from skin ulceration with MRSA, discharged on clindamycin. Complement C4 pending at d/c for question of hereditary/acquired angioedema. Status: Acute (2) Chronic low back pain Assessment & Plan: Resume home hydrocodone, baclofen. Status: Chronic (3) Hypertension Assessment & Plan: Resume home amlodipine. Qualifiers: Qualified Codes: I10 - Essential (primary) hypertension Status: Chronic Discharge Summary-Simple/Stand Discharge Physical Examination Allergies: Coded Allergies: No Known Drug Allergies (Unverified , 06/28/19) Copy Copies To 1: Cecilia Sellers APRN Supervisory-Addendum Brief Verification & Attestation Participated in pt care: history, MDM, physical Personally performed: exam, history, MDM Care discussed with: Medical Student Procedures: n/a Verification and Attestation of Medical Student E/M Service A medical student performed and documented this service in my presence. I reviewed and verified all information documented by the medical student and made modifications to such information, when appropriate. I personally performed the physical exam and medical decision making. Gabo Cooper, Jun 30, 2019,20:54 LINA UGALDE,MED STUDENT Jun 30, 2019 12:33 GABO COOPER MD Jun 30, 2019 20:54
[2019-06-30] MEDS ORDERED: CLIN300C11 PO (14:51)
--- NOTE | 2019-06-30 15:26 | NUR ---
Pt is Orthodoxy and declines sacraments.
[2019-06-30] MEDS ORDERED: POTASSIUM CL 10MEQ/50ML IVPB 50 ML IV ONE (15:30)
[2019-06-30] MEDS: ENOXAPARIN 40 MG/0.4 ML (LOVENOX) SYR SC SCH (17:30)
[2019-06-30] MEDS ORDERED: TROUGH ORDER-PHARMACY XX NR (18:30)
== END 2019-06-30 18:55 | disposition home or self-care (01) | DRG 159 ==
LOC: EDUNIT# 14:16 → ER 14:17 → 4TH 16:19
PROVIDERS: ADMIT Internal Medicine; ATTEND Family Medicine
DX: K12.2 Cellulitis and abscess of mouth (principal); B95.62 Methicillin resistant Staphylococcus aureus infection as the cause of diseases classified elsewhere; R59.0 Localized enlarged lymph nodes; I10 Essential (primary) hypertension; E11.9 Type 2 diabetes mellitus without complications; M54.5 Low back pain; E78.00 Pure hypercholesterolemia, unspecified; K21.9 Gastro-esophageal reflux disease without esophagitis; K59.09 Other constipation; M19.91 Primary osteoarthritis, unspecified site; F32.9 Major depressive disorder, single episode, unspecified; Z87.891 Personal history of nicotine dependence; Z85.819 Personal history of malignant neoplasm of unspecified site of lip, oral cavity, and pharynx; Z79.84 Long term (current) use of oral hypoglycemic drugs; Z92.3 Personal history of irradiation
CPT/HCPCS: 36415; 70491; 80053; 80202; 83605; 85025; 86160; 87040; 87070; 87077; 87186; 87205; 96365; 96375

== ENCOUNTER 2019-09-01 22:06 | Emergency (ER) | payer MEDICARE, OTHER ==
[~2019-09-01] VITALS: Ht 188 cm; Wt 115.5 kg
[~2019-09-01 22:06] MED LIST changes: +AMOX-358 PO; +ASPI-808 PO; +ATOR10TA66 PO; +BACL10TA PO; +BENZ1TAB6 PO; +CLIN300C11 PO; +CLOR7.5T3 PO; +DOCU-238 PO; +FLUO20CA42 PO
[2019-09-01] MEDS ORDERED: TRIM/SULFAMETH 160/800 (SEPTRA DS) TAB PO ONE (22:30)
[2019-09-01] MEDS ORDERED: CEPHALEXIN 250 MG (KEFLEX) CAP PO ONE (22:30)
[2019-09-01] MEDS ORDERED: SULF1TAB35 PO (22:32)
[2019-09-01] MEDS ORDERED: CEPH500T PO (22:32)
--- NOTE | 2019-09-01 22:33 | ED Integumentary General ---
General Chief Complaint: Skin/Wound Problems Stated Complaint: LIPS SWOLLEN Source: patient Exam Limitations: no limitations History of Present Illness Date Seen by Provider: Sep 01, 2019 Time Seen by Provider: 22:28 Initial Comments To ER by his by private vehicle from home with reports of rather sudden onset of swelling to the bottom lip earlier this evening. He has some pain in the bottom lip, he has chronic eversion of the bottom lip and so the inferior surface that is everted against the chin is chronically moist. He was recently admitted for Richard angina. He denies any fevers chills trouble swallowing or pain in his neck. Timing/Duration: this afternoon Severity: mild Location: face Associated Symptoms: denies symptoms Allergies and Home Medications Allergies Coded Allergies: No Known Drug Allergies (Unverified , 06/28/19) Home Medications Amlodipine Besylate 10 Mg Tablet, 10 MG PO DAILY, (Reported) Aspirin 325 Mg Tablet, 325 MG PO DAILY, (Reported) Atorvastatin Calcium 10 Mg Tablet, 10 MG PO HS, (Reported) Baclofen 10 Mg Tablet, 10 MG PO HS, (Reported) Benztropine Mesylate 1 Mg Tablet, 1 MG PO BID, (Reported) Clorazepate Dipotassium 7.5 Mg Tablet, 7.5 MG PO HS PRN for SLEEP, (Reported) Docusate Sodium 100 Mg Capsule, 100 MG PO DAILY PRN for CONSTIPATION-1ST LINE, (Reported) Fluoxetine HCl 20 Mg Capsule, 20 MG PO DAILY, (Reported) Hydrocodone/Acetaminophen 1 Each Tablet, 1 TAB PO BID PRN for PAIN-MODERATE, (Reported) Metformin HCl 500 Mg Tablet, 1,000 MG PO BID, (Reported) Pantoprazole Sodium 40 Mg Tablet.dr, 40 MG PO DAILY, (Reported) Patient Home Medication List Home Medication List Reviewed: Yes Review of Systems Review of Systems Constitutional: see HPI EENTM: see HPI Respiratory: no symptoms reported Cardiovascular: no symptoms reported Genitourinary: no symptoms reported Musculoskeletal: no symptoms reported Skin: no symptoms reported Psychiatric/Neurological: No Symptoms Reported Endocrine: No Symptoms Reported Hematologic/Lymphatic: No Symptoms Reported Past Wydbdse-Mslgfq-Mayizj Hx Patient Social History Alcohol Use: Denies Use Recreational Drug Use: No Former Smoker, Quit: Dec 24, 2008 2nd Hand Smoke Exposure: No Recent Foreign Travel: No Contact w/Someone Who Travel: No Recent Hopitalizations: No Physical Abuse: No Sexual Abuse: No Mistreated: No Fear: No Immunizations Up To Date Tetanus Booster (TDap): Unknown Date of Influenza Vaccine: Aug 03, 2018 Seasonal Allergies Seasonal Allergies: No Past Medical History Surgeries: Yes (HEMORROIDECTOMY, THROAT CA) Gallbladder Respiratory: No Cardiac: Yes High Cholesterol, Hypertension Neurological: No Sexually Transmitted Disease: No HIV/AIDS: No Genitourinary: No Gastrointestinal: Yes Gastroesophageal Reflux, Chronic Constipation Musculoskeletal: Yes Chronic Back Pain Endocrine: Yes Diabetes, Non-Insulin dep HEENT: Yes (GLASSES, DENTURES) Loss of Vision: Bilateral Hearing Impairment: Denies Cancer: Yes Esophageal Did You Recieve Any Treatments: Yes What Type of Treatment Did You: Radiation, Surgical Intervention Psychosocial: Yes Depression Integumentary: No Blood Disorders: No Adverse Reaction/Blood Tranf: No (N/A) Physical Exam Vital Signs Capillary Refill : General Appearance: WD/WN, no apparent distress HEENT: PERRL/EOMI, normal ENT inspection, TMs normal, other (the middle of the bottom lip is firm and tender to palpation. On the exterior surface of the lip which is everted against the chin has a pustule on it, when unroofed I'm able to express a bit of purulent material. A culture of this was collected and sent to lab. There is no swelling of the chin itself, only the bottom lip. Likely related to this abscess.) Neck: non-tender Cardiovascular: other (on arrival to the room heart rate was 125, after visiting with him and relaxing his heart rate came down to 90s narrow complex sinus) Respiratory: no respiratory distress, no accessory muscle use Gastrointestinal: normal bowel sounds, non tender, soft Neurologic/Psychiatric: alert, normal mood/affect, oriented x 3 Skin: normal color, warm/dry Skin Problem Character: abscess Progress/Results/Core Measures Results/Orders My Orders Orders - JEREMIAH AVENDAÑO APRN Wound Culture (09/01/19 22:27) Ed Iv/Invasive Line Start (09/01/19 22:27) Cbc With Automated Diff (09/01/19 22:27) Cephalexin Capsule (Keflex Capsule) (09/01/19 22:30) Sulfamethoxazole/Trimet Ds Tab (Bactrim (09/01/19 22:30) Departure Impression Primary Impression: Abscess of lip Disposition: 01 HOME, SELF-CARE Condition: Stable Departure-Patient Inst. Decision time for Depature: 22:30 Referrals: [facility]JONATHAN (PCP) Primary Care Physician ELI HAYNES APRN (Family) Primary Care Physician Patient Instructions: Skin Abscess Add. Discharge Instructions: 1. Warm compresses to the area, squeeze the lip a few times a day and try to squeeze out any pus that you're able to. Antibiotics as directed. Return to ER for any worsening. See your doctor later this week for recheck. All discharge instructions reviewed with patient and/or family. Voiced understanding. Scripts Sulfamethoxazole/Trimethoprim (Bactrim Ds Tablet) 1 Each Tablet 1 EACH PO BID, #14 TAB Prov: JEREMIAH AVENDAÑO APRN 09/01/19 Cephalexin (Cephalexin) 500 Mg Tablet 500 MG PO QID, #20 TAB 0 Refills Prov: JEREMIAH AVENDAÑO APRN 09/01/19 JEREMIAH AVENDAÑO APRN Sep 01, 2019 22:33 POS
[2019-09-01 22:34] LABS: BASOPHILS % (AUTO) 0 % (0-10); EOSINOPHILS # (AUTO) 0.1 10^3/uL (0.0-0.3); EOSINOPHILS % (AUTO) 1 % (0-10); HEMATOCRIT 44 % (40-54); HEMOGLOBIN 15.4 G/DL (13.3-17.7); LYMPHOCYTES # (AUTO) 2.5 X 10^3 (1.0-4.0); LYMPHOCYTES % (AUTO) 25 % (12-44); MEAN CORPUSCULAR HEMOGLOBIN 29 PG (25-34); MEAN CORPUSCULAR HGB CONC 35 G/DL (32-36); MEAN CORPUSCULAR VOLUME 83 FL (80-99); MEAN PLATELET VOLUME 10.1 FL (7.4-10.4); MONOCYTES % (AUTO) 10 % (0-12); NEUTROPHILS # (AUTO) 6.6 X 10^3 (1.8-7.8); NEUTROPHILS % (AUTO) 64 % (42-75); PLATELET COUNT 206 10^3/uL (130-400); RED CELL DISTRIBUTION WIDTH 14.2 % (10.0-14.5); WHITE BLOOD COUNT 10.3 10^3/uL (4.3-11.0)
[2019-09-01 22:47] VITALS: BP 122/68
== END 2019-09-01 22:50 | disposition home or self-care (01) ==
LOC: EDUNIT# 22:06 → ER 22:08
DX: K13.0 Diseases of lips (principal); I10 Essential (primary) hypertension; E11.9 Type 2 diabetes mellitus without complications; F32.9 Major depressive disorder, single episode, unspecified; E78.00 Pure hypercholesterolemia, unspecified; K21.9 Gastro-esophageal reflux disease without esophagitis; Z79.82 Long term (current) use of aspirin; Z79.84 Long term (current) use of oral hypoglycemic drugs; Z87.891 Personal history of nicotine dependence; Z85.01 Personal history of malignant neoplasm of esophagus
CPT/HCPCS: 36415; 85025; 87070; 87077; 87186; 87205

== ENCOUNTER 2020-01-10 05:52 | Outpatient (CLI) | payer MEDICARE, OTHER ==
[~2020-01-10] VITALS: Ht 187 cm; Wt 113.0 kg
[~2020-01-10 05:52] MED LIST changes: +ACHD5005 PO; +CEPH500T PO; -GLIM4TAB PO; +GLIM4TAB5 PO; -HYDR-3812 PO; +SULF1TAB35 PO
== END 2020-01-10 12:15 | disposition home or self-care (01) ==
LOC: PREOP 05:52
PROVIDERS: ATTEND Surgery
DX: Z01.818 Encounter for other preprocedural examination (principal)

== ENCOUNTER 2020-03-09 09:12 | Outpatient (RCR) | payer MEDICARE, OTHER ==
[~2020-03-09] VITALS: Ht 188 cm; Wt 122.3 kg
== END 2020-03-09 16:25 | disposition home or self-care (01) ==
LOC: PREOP 09:12
PROVIDERS: ATTEND Surgery
DX: Z01.812 Encounter for preprocedural laboratory examination (principal); Z11.59 Encounter for screening for other viral diseases; Z86.010 Personal history of colon polyps
CPT/HCPCS: 87635

== ENCOUNTER 2020-03-13 07:55 | Day surgery (SDC) | payer MEDICARE, OTHER ==
[~2020-03-13] VITALS: Ht 182.2 cm; Wt 122.3 kg
[~2020-03-13 07:55] MED LIST changes: +LACTATED RINGERS 1,000 ML IV ONE
--- OUTSIDE RECORDS SUMMARY | 2020-03-13 08:02 | XMS REPORT | Continuity of Care Document ---
Author Organization Unknown Address Unknown Phone Unavailable Allergies Active Description Code Type Severity Reaction Onset Reported/Identified Relationship to Patient Clinical Status Yes No Allergy Information Available [id number] Drug Allergy Unknown N/A 019 Yes No Known Drug Allergies [id number] Drug Allergy Unknown N/A 01/10/2020 Medications There is no data. 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 01/02/2018 MARV VILLALOBOS MD, Ot I1 0 ESSENTIAL (PRIMARY) HYPERTENSION 01/02/2018 MARV VILLALOBOS MD, Ot Z85.89 PERSONAL HISTORY OF MALIGNANT NEOPLASM O 01/22/2018 MARV VILLALOBOS MD, Ot E11.9 TYPE 2 DIABETES MELLITUS WITHOUT COMPLIC 01/22/2018 MARV VILLALOBOS MD, Ot 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 01/22/2018 MARV VILLALOBOS MD, Ot I1 0 ESSENTIAL (PRIMARY) HYPERTENSION 01/22/2018 MARV VILLALOBOS MD, Ot Z85.89 PERSONAL HISTORY OF MALIGNANT NEOPLASM O 12/23/2018 ELI HAYNES APRN Ot R13.10 DYSPHAGIA, UNSPECIFIED 12/24/2018 ELI HAYNES APRN Ot R13.10 DYSPHAGIA, UNSPECIFIED 12/24/2018 JERAMY PEACOCK DO Ot Z01.8 18 ENCOUNTER FOR OTHER PREPROCEDURAL EXAMIN 12/25/2018 JERAMY PEACOCK DO Ot Z01.8 18 ENCOUNTER FOR OTHER PREPROCEDURAL EXAMIN 12/28/2018 IVY ELI J CONCRETE PAVING MACHINE OPERATOR Ot R13.10 DYSPHAGIA, UNSPECIFIED 12/28/2018 JERAMY PEACOCK DO B Ot D12.5 BENIGN NEOPLASM OF SIGMOID COLON 12/28/2018 SARAH PEACOCK DOIC B Ot E11.9 TYPE 2 DIABETES MELLITUS WITHOUT COMPLIC 12/28/2018 SARAH PEACOCK DOIC B Ot E78.5 HYPERLIPIDEMIA, UNSPECIFIED 12/28/2018 SARAH PEACOCK DOIC B Ot I10 ESSENTIAL (PRIMARY) HYPERTENSION 12/28/2018 SARAH PEACOCK DOIC B Ot K20.9 ESOPHAGITIS, UNSPECIFIED 12/28/2018 SARAH PEACOCK DOIC B Ot K21.0 GASTRO-ESOPHAGEAL REFLUX DISEASE WITH ES 12/28/2018 SARAH PEACOCK DOIC B Ot K21.9 GASTRO-ESOPHAGEAL REFLUX DISEASE WITHOUT 12/28/2018 SARAH PEACOCK DOIC B Ot K29.5 0 UNSPECIFIED CHRONIC GASTRITIS WITHOUT BL 12/28/2018 JERAMY PEACOCK DO B Ot K63.5 POLYP OF COLON 12/28/2018 SARAH PEACOCK DOIC B Ot K63.8 9 OTHER SPECIFIED DISEASES OF INTESTINE 12/28/2018 SARAH PEACOCK DOIC B Ot K64.8 OTHER HEMORRHOIDS 12/28/2018 JERAMY PEACOCK DO B Ot R13.1 2 DYSPHAGIA, OROPHARYNGEAL PHASE 12/28/2018 SARAH PEACOCK DOIC B Ot R19.4 CHANGE IN BOWEL HABIT 12/28/2018 JERAMY PEACOCK DO B Ot Z12.1 1 ENCOUNTER FOR SCREENING FOR MALIGNANT NE 12/28/2018 JERAMY PEACOCK DO B Ot Z79.8 2 [facility] (CURRENT) USE OF ASPIRIN 12/28/2018 SARAH PEACOCK DOIC B Ot Z79.8 4 [facility] (CURRENT) USE OF ORAL HYPOGLYC 12/28/2018 JERAMY PEACOCK DO B Ot Z79.8 99 OTHER [facility] (CURRENT) DRUG THERAPY 12/28/2018 JERAMY PEACOCK DO B Ot Z85.2 1 PERSONAL HISTORY OF MALIGNANT NEOPLASM O 12/28/2018 JERAMY PEACOCK DO B Ot Z87.8 91 PERSONAL HISTORY OF NICOTINE DEPENDENCE 12/28/2018 JEARMY PEACOCK DO B Ot Z92.3 PERSONAL HISTORY OF IRRADIATION 12/31/2018 JERAMY PEACOCK DO Ot D12.5 BENIGN NEOPLASM OF SIGMOID COLON 12/31/2018 JERAMY PEACOCK DO B Ot E11.9 TYPE 2 DIABETES MELLITUS WITHOUT COMPLIC 12/31/2018 JERAMY PEACOCK DO Ot E78.5 HYPERLIPIDEMIA, UNSPECIFIED 12/31/2018 SARAH PEACOCK DOIC B Ot I10 ESSENTIAL (PRIMARY) HYPERTENSION 12/31/2018 SARAH PEACOCK DOIC B Ot K21.0 GASTRO-ESOPHAGEAL REFLUX DISEASE WITH ES 12/31/2018 JERAMY PEACOCK DO B Ot K29.5 0 UNSPECIFIED CHRONIC GASTRITIS WITHOUT BL 12/31/2018 JERAMY PEACOCK DO B Ot K63.8 9 OTHER SPECIFIED DISEASES OF INTESTINE 12/31/2018 JERAMY PEACOCK DO Ot K64.8 OTHER HEMORRHOIDS 12/31/2018 JERAMY PEACOCK DO Ot R13.1 2 DYSPHAGIA, OROPHARYNGEAL PHASE 12/31/2018 JERAMY PEACOCK DO B Ot R19.4 CHANGE IN BOWEL HABIT 12/31/2018 JERAMY PEACOCK DO Ot Z12.1 1 ENCOUNTER FOR SCREENING FOR MALIGNANT NE 12/31/2018 JERAMY PEACOCK DO B Ot Z79.8 2 [facility] (CURRENT) USE OF ASPIRIN 12/31/2018 JERAMY PEACOCK DO Ot Z79.8 4 [facility] (CURRENT) USE OF ORAL HYPOGLYC 12/31/2018 JERAMY PEACOCK DO Ot Z79.8 99 OTHER [facility] (CURRENT) DRUG THERAPY 12/31/2018 JERAMY PEACOCK DO Ot Z85.2 1 PERSONAL HISTORY OF MALIGNANT NEOPLASM O 12/31/2018 JERAMY PEACOCK DO Ot Z87.8 91 PERSONAL HISTORY OF NICOTINE DEPENDENCE 12/31/2018 JERAMY PEACOCK DO B Ot Z92.3 PERSONAL HISTORY OF IRRADIATION 01/10/2019 JERAMY PEACOCK DO Ot D12.5 BENIGN NEOPLASM OF SIGMOID COLON 01/10/2019 JERAMY PEACOCK DO Ot E11.9 TYPE 2 DIABETES MELLITUS WITHOUT COMPLIC 01/10/2019 SARAH PEACOCK DOIC B Ot E78.5 HYPERLIPIDEMIA, UNSPECIFIED 01/10/2019 SARAH PEACOCK DOIC B Ot I10 ESSENTIAL (PRIMARY) HYPERTENSION 01/10/2019 JERAMY PEACOCK DO B Ot K21.0 GASTRO-ESOPHAGEAL REFLUX DISEASE WITH ES 01/10/2019 SARAH PEACOCK DOIC B Ot K29.5 0 UNSPECIFIED CHRONIC GASTRITIS WITHOUT BL 01/10/2019 SARAH PEACOCK DOIC Yosi Ot K63.8 9 OTHER SPECIFIED DISEASES OF INTESTINE 01/10/2019 AYUSH CHUNG JERAMY B Ot K64.8 OTHER HEMORRHOIDS 01/10/2019 AYUSH CHUNG JERAMY Yosi Ot R13.1 2 DYSPHAGIA, OROPHARYNGEAL PHASE 01/10/2019 AYUSH CHUNG JERAMY B Ot R19.4 CHANGE IN BOWEL HABIT 01/10/2019 AYUSH CHUNG JERAMY B Ot Z12.1 1 ENCOUNTER FOR SCREENING FOR MALIGNANT NE 01/10/2019 AYUSH CHUNG JERAMY B Ot Z79.8 2 [facility] (CURRENT) USE OF ASPIRIN 01/10/2019 AYUSH CHUNGJERAMY Ot Z79.8 4 [facility] (CURRENT) USE OF ORAL HYPOGLYC 01/10/2019 AYUSH CHUNGJERAMY Ot Z79.8 99 OTHER [facility] (CURRENT) DRUG THERAPY 01/10/2019 AYUSH CHUNG JERAMY Yosi Ot Z85.2 1 PERSONAL HISTORY OF MALIGNANT NEOPLASM O 01/10/2019 AYUSH CHUNG JERAMY Yosi Ot Z87.8 91 PERSONAL HISTORY OF NICOTINE DEPENDENCE 01/10/2019 AYUSH CHUNG JERAMY Yosi Ot Z92.3 PERSONAL HISTORY OF IRRADIATION 01/18/2019 ELI HAYNES APRN Ot R13.10 DYSPHAGIA, UNSPECIFIED 01/20/2019 ELI HAYNES APRN Ot R13.10 DYSPHAGIA, UNSPECIFIED 04/11/2019 ELI HAYNES APRN Ot 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, UNSPECIFIE 04/11/2019 ELI HAYNES APRN Ot M48.02 SPINAL STENOSIS, CERVICAL REGION 04/11/2019 ELI HAYNES APRN Ot 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 04/11/2019 ELI HAYNES APRN Ot 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 04/14/2019 ELI HAYNES APRN Ot 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, UNSPECIFIE 04/14/2019 ELI HAYNES APRN Ot M48.02 SPINAL STENOSIS, CERVICAL REGION 04/14/2019 ELI HAYNES APRN Ot 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 04/14/2019 ELI HAYNES CONCRETE PAVING MACHINE OPERATOR Ot 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 04/30/2019 ELI HAYNES CONCRETE PAVING MACHINE OPERATOR Ot 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, UNSPECIFIE 04/30/2019 ELI HAYNES APRN Ot M48.02 SPINAL STENOSIS, CERVICAL REGION 04/30/2019 ELI HAYNES CONCRETE PAVING MACHINE OPERATOR Ot 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 04/30/2019 ELI HAYNES CONCRETE PAVING MACHINE OPERATOR Ot 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 05/05/2019 ELI HAYNES CONCRETE PAVING MACHINE OPERATOR Ot 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, UNSPECIFIE 05/05/2019 ELI HAYNES APRN Ot M48.02 SPINAL STENOSIS, CERVICAL REGION 05/05/2019 ELI HAYNES APRN Ot 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 05/05/2019 ELI HAYNES APRN Ot 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 06/30/2019 GABO COOPER MD Ot 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 06/30/2019 GABO COOPER MD Ot E11 .9 TYPE 2 DIABETES MELLITUS WITHOUT COMPLIC 06/30/2019 GABO COOPER MD Ot E78.00 PURE HYPERCHOLESTEROLEMIA, UNSPECIFIED 06/30/2019 GABO COOPER MD Ot F32 .9 MAJOR DEPRESSIVE DISORDER, SINGLE EPISOD 06/30/2019 GABO COOPER MD Ot I10 ESSENTIAL (PRIMARY) HYPERTENSION 06/30/2019 GABO COOPER MD Ot K12 .2 CELLULITIS AND ABSCESS OF MOUTH 06/30/2019 GABO COOPER MD Ot K21 .9 GASTRO-ESOPHAGEAL REFLUX DISEASE WITHOUT 06/30/2019 GABO COOPER MD Ot K59.09 OTHER CONSTIPATION 06/30/2019 GABO COOPER MD Ot M19.91 PRIMARY OSTEOARTHRITIS, UNSPECIFIED SITE 06/30/2019 GABO COOPER MD Ot M54 .5 LOW BACK PAIN 06/30/2019 GABO COOPER MD Ot R59 .0 LOCALIZED ENLARGED LYMPH NODES 06/30/2019 GABO COOPER MD, Ot Z79.84 [facility] (CURRENT) USE OF ORAL HYPOGLYC 06/30/2019 GABO COOPER MD, Ot Z85.819 PRSNL HX OF [facility] SITE LI 06/30/2019 GABO COOPER MD, Ot Z87.891 PERSONAL HISTORY OF NICOTINE DEPENDENCE 06/30/2019 GABO COOPER MD, Ot Z92 .3 PERSONAL HISTORY OF IRRADIATION 09/01/2019 JEREMIAH AVENDAÑO APRN Ot E11 .9 TYPE 2 DIABETES MELLITUS WITHOUT COMPLIC 09/01/2019 JEREMIAH AVENDAÑO APRN Ot E78.00 PURE HYPERCHOLESTEROLEMIA, UNSPECIFIED 09/01/2019 JEREMIAH AVENDAÑO APRN Ot F32 .9 MAJOR DEPRESSIVE DISORDER, SINGLE EPISOD 09/01/2019 JEREMIAH AVENDAÑO APRN Ot I10 ESSENTIAL (PRIMARY) HYPERTENSION 09/01/2019 JEREMIAH AVENDAÑO APRN Ot K13 .0 DISEASES OF LIPS 09/01/2019 JEREMIAH AVENDAÑO APRN Ot K21 .9 GASTRO-ESOPHAGEAL REFLUX DISEASE WITHOUT 09/01/2019 JEREMIAH AVENDAÑO APRN Ot Z79.82 [facility] (CURRENT) USE OF ASPIRIN 09/01/2019 JEREMIAH AVENDAÑO APRN Ot Z79.84 [facility] (CURRENT) USE OF ORAL HYPOGLYC 09/01/2019 JEREMIAH AVENDAÑO APRN Ot Z85.01 PERSONAL HISTORY OF MALIGNANT NEOPLASM O 09/01/2019 JEREMIAH AVENDAÑO APRN Ot Z87.891 PERSONAL HISTORY OF NICOTINE DEPENDENCE 09/02/2019 ELI HAYNES APRN Ot 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, UNSPECIFIE 09/02/2019 ELI HAYNES APRN Ot M48.02 SPINAL STENOSIS, CERVICAL REGION 09/02/2019 ELI HAYNES APRN Ot 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 09/02/2019 ELI HAYNES APRN Ot 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 09/06/2019 JEREMIAH AVENDAÑO APRN Ot E11 .9 TYPE 2 DIABETES MELLITUS WITHOUT COMPLIC 09/06/2019 JEREMIAH AVENDAÑO APRN Ot E78.00 PURE HYPERCHOLESTEROLEMIA, UNSPECIFIED 09/06/2019 JEREMIAH AVENDAÑO APRN Ot F32 .9 MAJOR DEPRESSIVE DISORDER, SINGLE EPISOD 09/06/2019 JEREMIAH AVENDAÑO APRN Ot I10 ESSENTIAL (PRIMARY) HYPERTENSION 09/06/2019 JEREMIAH AVENDAÑO APRN Ot K13 .0 DISEASES OF LIPS 09/06/2019 JEREMIAH AVENDAÑO APRN Ot K21 .9 GASTRO-ESOPHAGEAL REFLUX DISEASE WITHOUT 09/06/2019 JEREMIAH AVENDAÑO APRN Ot Z79.82 [facility] (CURRENT) USE OF ASPIRIN 09/06/2019 JEREMIAH AVENDAÑO APRN Ot Z79.84 [facility] (CURRENT) USE OF ORAL HYPOGLYC 09/06/2019 JEREMIAH AVENDAÑO APRN Ot Z85.01 PERSONAL HISTORY OF MALIGNANT NEOPLASM O 09/06/2019 JEREMIAH AVENDAÑO APRN Ot Z87.891 PERSONAL HISTORY OF NICOTINE DEPENDENCE 01/11/2020 JERAMY PEACOCK DO Ot Z01.8 18 ENCOUNTER FOR OTHER PREPROCEDURAL EXAMIN 01/16/2020 JERAMY PEACOCK DO Ot Z01.8 18 ENCOUNTER FOR OTHER PREPROCEDURAL EXAMIN Procedures There is no data. Results Test Result Range A1C - 01/23/18 16:01 HEMOGLOBIN A1c 9.1 % of total Hgb <5.7 PDM - 09 PANEL (PROFILE 1) - 03/27/18 14 :53 Creatinine 137.7 mg/dL > or = 20.0 pH 5.91 4.5 - 9.0 Oxidant NEGATIVE mcg/mL <200 Amphetamines NEGATIVE ng/mL <500 medMATCH Amphetamines CONSISTENT NRG Benzodiazepines POSITIVE ng/mL <100 Marijuana Metabolite NEGATIVE ng/mL <20 medMATCH Marijuana Metab CONSISTENT NRG Cocaine Metabolite NEGATIVE ng/mL <150 medMATCH Cocaine Metab CONSISTENT NRG Opiates NEGATIVE ng/mL <100 medMATCH Opiates CONSISTENT NRG Oxycodone NEGATIVE ng/mL <100 medMATCH Oxycodone CONSISTENT NRG COMMENT NRG Alphahydroxyalprazolam NEGATIVE ng/mL <25 medMATCH aOH alprazolam CONSISTENT NRG Alphahydroxymidazolam NEGATIVE ng/mL < 50 medMATCH aOH midazolam CONSISTENT NRG Alphahydroxytriazolam NEGATIVE ng/mL < 50 medMATCH aOH triazolam CONSISTENT NRG Aminoclonazepam NEGATIVE ng/mL <25 medMATCH Aminoclonazepam CONSISTENT NRG Hydroxyethylflurazepam NEGATIVE ng/mL <50 medMATCH OH,Et flurazepam CONSISTENT NR G Lorazepam NEGATIVE ng/mL <50 medMATCH Lorazepam CONSISTENT NRG Nordiazepam 88 ng/mL <50 medMATCH Nordiazepam INCONSISTENT NRG Oxazepam 972 ng/mL <50 medMATCH Oxazepam INCONSISTENT NRG Temazepam NEGATIVE ng/mL <50 medMATCH Temazepam CONSISTENT NRG Barbiturates NEGATIVE ng/mL <300 medMATCH Barbiturates CONSISTENT NRG Methadone Metabolite NEGATIVE ng/mL <100 medMATCH Methadone Metab CONSISTENT NRG Phencyclidine NEGATIVE ng/mL <25 medMATCH Phencyclidine CONSISTENT NRG Capillary blood glucose measurement by g lucometer (mass/volume) - 12/28/18 12:55 Capillary blood glucose measurement by glucometer (mas s/volume) 121 mg/dL 70-110 Comprehensive metabolic panel - 04/08/19 11:09 Serum or plasma sodium measurement (moles/volume) 143 mmol/L 135-145 Serum or plasma potassium measurement (moles/volume) 4.1 mmol/L 3.6-5.0 Serum or plasma chloride measurement (moles/volume) 110 mmol/L 98-107 Carbon dioxide 25 mmol/L 21-32 Serum or plasma anion gap determination (moles/volume) 8 mmol/L 5-14 Serum or plasma urea nitrogen measurement (mass/volume ) 14 mg/dL 7-18 Serum or plasma creatinine measurement (mass/volume) 0.90 mg/dL 0.60-1.30 Serum or plasma urea nitrogen/creatinine mass ratio 16 NRG Serum or plasma creatinine measurement w ith calculation of estimated glomerular filtration rate > NRG Serum or plasma glucose measurement (mass/volume) 152 mg/dL 70-105 Serum or plasma calcium measurement (mass/volume) 9.8 mg/dL 8.5-10.1 Serum or plasma total bilirubin measurement (mass/volu me) 0.7 mg/dL 0.1-1.0 Serum or plasma alkaline phosphatase azalea surement (enzymatic activity/volume) 78 U/L 40-136 Serum or plasma aspartate aminotransfera se measurement (enzymatic activity/volume) 18 U/L 5-34 Serum or plasma alanine aminotransferase measurement (enzymatic activity/volume) 26 U/L 0-55 Serum or plasma protein measurement (mass/volume) 7.2 g/dL 6.4-8.2 Serum or plasma albumin measurement (mass/volume) 4.4 g/dL 3.2-4.5 CALCIUM CORRECTED 9.5 mg/dL 8.5-10.1 BUN - 04/16/19 09:29 UREA NITROGEN (BUN) 16 mg/dL 7-25 CREATININE, SERUM - 04/16/19 09:29 CREATININE 0.92 mg/dL 0.70-1.25 eGFR NON-AFR. BARBAD[place] 86 mL/min/1.73m2 > OR = 60 eGFR 99 mL/min/1.73m2 > OR = 60 PDM - PAIN MGMT (PROFILE 3 WITH CONFIRMA TION) - 04/19/19 13:22 Prescribed Drug 1 Clorazepate NRG Creatinine 130.9 mg/dL > or = 20.0 pH 6.30 4.5 - 9.0 Oxidant NEGATIVE mcg/mL <200 Amphetamines NEGATIVE ng/mL <500 medMATCH Amphetamines CONSISTENT NRG Benzodiazepines POSITIVE ng/mL <100 Marijuana Metabolite NEGATIVE ng/mL <20 medMATCH Marijuana Metab CONSISTENT NRG Cocaine Metabolite NEGATIVE ng/mL <150 medMATCH Cocaine Metab CONSISTENT NRG Opiates NEGATIVE ng/mL <100 medMATCH Opiates CONSISTENT NRG Oxycodone NEGATIVE ng/mL <100 medMATCH Oxycodone CONSISTENT NRG COMMENT NRG Alphahydroxyalprazolam NEGATIVE ng/mL <25 medMATCH aOH alprazolam CONSISTENT NRG Alphahydroxymidazolam NEGATIVE ng/mL < 50 medMATCH aOH midazolam CONSISTENT NRG Alphahydroxytriazolam NEGATIVE ng/mL < 50 medMATCH aOH triazolam CONSISTENT NRG Aminoclonazepam NEGATIVE ng/mL <25 medMATCH Aminoclonazepam CONSISTENT NRG Hydroxyethylflurazepam NEGATIVE ng/mL <50 medMATCH [place],Et flurazepam CONSISTENT NR G Lorazepam NEGATIVE ng/mL <50 medMATCH Lorazepam CONSISTENT NRG Nordiazepam NEGATIVE ng/mL <50 medMATCH Nordiazepam CONSISTENT NRG Oxazepam 634 ng/mL <50 medMATCH Oxazepam CONSISTENT NRG Temazepam NEGATIVE ng/mL <50 medMATCH Temazepam CONSISTENT NRG Gram stain microscopy - 06/28/19 14:20 Gram stain microscopy Many Gram positive cocci in clusters NRG Bacteria identification in wound by cult ure - 06/28/19 14:20 Bacteria identification in wound by culture [id number] NRG FREE TEXT EXTERNAL SUSCEPTIBILITY REPORTED 06/30/19 12:25 NRG QUANTITY OF GROWTH Many NRG FREE TEXT ENTRY 2 MRSA REPORTED TO SOFI HAMMOND BY Brijesh MELENDEZ NRG Dirithromycin susceptibility test by dis k diffusion - 06/28/19 14:20 Oxacillin susceptibility test by minimum inhibitory co ncentration > NRG Clindamycin susceptibility test by minimum inhibitory concentration <= NRG Erythromycin susceptibility test by minimum inhibitory concentration > NRG Trimethoprim/sulfamethoxazole susceptibi lity test by minimum inhibitoryconcentration > NRG Vancomycin susceptibility test by minimum inhibitory c oncentration 1 NRG Levofloxacin susceptibility test by minimum inhibitory concentration > NRG Rifampin susceptibility test by minimum inhibitory con centration <= NRG Cefazolin susceptibility test by minimum inhibitory co ncentration > NRG Linezolid susceptibility test by minimum inhibitory co ncentration 2 NRG Penicillin G susceptibility test by minimum inhibitory concentration > NRG Moxifloxacin susceptibility test by minimum inhibitory concentration 2 NRG Minocycline susc TAYO <= NRG Complete blood count (CBC) with automate d white blood cell (WBC) differential - 06/28/19 14:30 Blood leukocytes automated count (number/volume) 9.8 10*3/uL 4.3-11.0 Blood erythrocytes automated count (number/volume) 5.12 10*6/uL 4.35-5.85 Venous blood hemoglobin measurement (mass/volume) 14.6 g/dL 13.3-17.7 Blood hematocrit (volume fraction) 43 % 40-54 Automated erythrocyte mean corpuscular volume 84 [ foz_us] 80-99 Automated erythrocyte mean corpuscular h emoglobin (mass per erythrocyte) 29 pg 25-34 Automated erythrocyte mean corpuscular h emoglobin concentration measurement (mass/volume) 34 g/dL 32-36 Automated erythrocyte distribution width ratio 13. 7 % 10.0- 14.5 Automated blood platelet count (count/volume) 176 10*3/uL 130-400 Automated blood platelet mean volume measurement 10.0 [foz_us] 7.4-10.4 Automated blood neutrophils/100 leukocytes 67 % 42-75 Automated blood lymphocytes/100 leukocytes 18 % 12-44 Blood monocytes/100 leukocytes 14 % 0-12 Automated blood eosinophils/100 leukocytes 1 % 0-10 Automated blood basophils/100 leukocytes 0 % 0-10 Blood neutrophils automated count (number/volume) 6.6 10*3 1.8-7.8 Blood lymphocytes automated count (number/volume) 1.8 10*3 1.0-4.0 Blood monocytes automated count (number/volume) 1. 3 10*3 0.0-1.0 Automated eosinophil count 0.1 10*3/uL 0 .0-0.3 Automated blood basophil count (count/volume) 0.0 10*3/uL 0.0-0.1 Comprehensive metabolic panel - 06/28/19 14:30 Serum or plasma sodium measurement (moles/volume) 139 mmol/L 135-145 Serum or plasma potassium measurement (moles/volume) 4.0 mmol/L 3.6-5.0 Serum or plasma chloride measurement (moles/volume) 106 mmol/L 98-107 Carbon dioxide 21 mmol/L 21-32 Serum or plasma anion gap determination (moles/volume) 12 mmol/L 5-14 Serum or plasma urea nitrogen measurement (mass/volume ) 19 mg/dL 7-18 Serum or plasma creatinine measurement (mass/volume) 0.92 mg/dL 0.60-1.30 Serum or plasma urea nitrogen/creatinine mass ratio 21 NRG Serum or plasma creatinine measurement w ith calculation of estimated glomerular filtration rate > NRG Serum or plasma glucose measurement (mass/volume) 161 mg/dL 70-105 Serum or plasma calcium measurement (mass/volume) 9.9 mg/dL 8.5-10.1 Serum or plasma total bilirubin measurement (mass/volu me) 1.5 mg/dL 0.1-1.0 Serum or plasma alkaline phosphatase azalea surement (enzymatic activity/volume) 88 U/L 40-136 Serum or plasma aspartate aminotransfera se measurement (enzymatic activity/volume) 17 U/L 5-34 Serum or plasma alanine aminotransferase measurement (enzymatic activity/volume) 20 U/L 0-55 Serum or plasma protein measurement (mass/volume) 7.6 g/dL 6.4-8.2 Serum or plasma albumin measurement (mass/volume) 4.2 g/dL 3.2-4.5 CALCIUM CORRECTED 9.7 mg/dL 8.5-10.1 Blood lactic acid measurement (moles/vol ume) - 06/28/19 14:41 Blood lactic acid measurement (moles/volume) 1.81 mmol/L 0.50-2.00 Bacterial blood culture - 06/28/19 14:47 Bacterial blood culture NG NRG Bacterial blood culture - 06/28/19 15:53 Bacterial blood culture NG NRG Complete blood count (CBC) with automate d white blood cell (WBC) differential - 06/29/19 04:41 Blood leukocytes automated count (number/volume) 6.9 10*3/uL 4.3-11.0 Blood erythrocytes automated count (number/volume) 5.09 10*6/uL 4.35-5.85 Venous blood hemoglobin measurement (mass/volume) 14.7 g/dL 13.3-17.7 Blood hematocrit (volume fraction) 43 % 40-54 Automated erythrocyte mean corpuscular volume 85 [ foz_us] 80-99 Automated erythrocyte mean corpuscular h emoglobin (mass per erythrocyte) 29 pg 25-34 Automated erythrocyte mean corpuscular h emoglobin concentration measurement (mass/volume) 34 g/dL 32-36 Automated erythrocyte distribution width ratio 13. 3 % 10.0- 14.5 Automated blood platelet count (count/volume) 133 10*3/uL 130-400 Automated blood platelet mean volume measurement 10.4 [foz_us] 7.4-10.4 Automated blood neutrophils/100 leukocytes 69 % 42-75 Automated blood lymphocytes/100 leukocytes 16 % 12-44 Blood monocytes/100 leukocytes 13 % 0-12 Automated blood eosinophils/100 leukocytes 2 % 0-10 Automated blood basophils/100 leukocytes 0 % 0-10 Blood neutrophils automated count (number/volume) 4.7 10*3 1.8-7.8 Blood lymphocytes automated count (number/volume) 1.1 10*3 1.0-4.0 Blood monocytes automated count (number/volume) 0. 9 10*3 0.0-1.0 Automated eosinophil count 0.1 10*3/uL 0 .0-0.3 Automated blood basophil count (count/volume) 0.0 10*3/uL 0.0-0.1 Comprehensive metabolic panel - 06/29/19 04:41 Serum or plasma sodium measurement (moles/volume) 140 mmol/L 135-145 Serum or plasma potassium measurement (moles/volume) 3.4 mmol/L 3.6-5.0 Serum or plasma chloride measurement (moles/volume) 105 mmol/L 98-107 Carbon dioxide 23 mmol/L 21-32 Serum or plasma anion gap determination (moles/volume) 12 mmol/L 5-14 Serum or plasma urea nitrogen measurement (mass/volume ) 16 mg/dL 7-18 Serum or plasma creatinine measurement (mass/volume) 0.84 mg/dL 0.60-1.30 Serum or plasma urea nitrogen/creatinine mass ratio 19 NRG Serum or plasma creatinine measurement w ith calculation of estimated glomerular filtration rate > NRG Serum or plasma glucose measurement (mass/volume) 142 mg/dL 70-105 Serum or plasma calcium measurement (mass/volume) 9.5 mg/dL 8.5-10.1 Serum or plasma total bilirubin measurement (mass/volu me) 1.5 mg/dL 0.1-1.0 Serum or plasma alkaline phosphatase azalea surement (enzymatic activity/volume) 80 U/L 40-136 Serum or plasma aspartate aminotransfera se measurement (enzymatic activity/volume) 16 U/L 5-34 Serum or plasma alanine aminotransferase measurement (enzymatic activity/volume) 20 U/L 0-55 Serum or plasma protein measurement (mass/volume) 7.2 g/dL 6.4-8.2 Serum or plasma albumin measurement (mass/volume) 4.0 g/dL 3.2-4.5 CALCIUM CORRECTED 9.5 mg/dL 8.5-10.1 Complement C4 [mass/volume] in serum or plasma - 06/29/19 04:52 Complement C4 [mass/volume] in serum or plasma 53 % 15-59 Complete blood count (CBC) with automate d white blood cell (WBC) differential - 06/30/19 04:52 Blood leukocytes automated count (number/volume) 4.1 10*3/uL 4.3-11.0 Blood erythrocytes automated count (number/volume) 4.48 10*6/uL 4.35-5.85 Venous blood hemoglobin measurement (mass/volume) 12.8 g/dL 13.3-17.7 Blood hematocrit (volume fraction) 38 % 40-54 Automated erythrocyte mean corpuscular volume 85 [ foz_us] 80-99 Automated erythrocyte mean corpuscular h emoglobin (mass per erythrocyte) 29 pg 25-34 Automated erythrocyte mean corpuscular h emoglobin concentration measurement (mass/volume) 34 g/dL 32-36 Automated erythrocyte distribution width ratio 13. 4 % 10.0- 14.5 Automated blood platelet count (count/volume) 133 10*3/uL 130-400 Automated blood platelet mean volume measurement 10.3 [foz_us] 7.4-10.4 Automated blood neutrophils/100 leukocytes 59 % 42-75 Automated blood lymphocytes/100 leukocytes 19 % 12-44 Blood monocytes/100 leukocytes 18 % 0-12 Automated blood eosinophils/100 leukocytes 5 % 0-10 Automated blood basophils/100 leukocytes 0 % 0-10 Blood neutrophils automated count (number/volume) 2.4 10*3 1.8-7.8 Blood lymphocytes automated count (number/volume) 0.8 10*3 1.0-4.0 Blood monocytes automated count (number/volume) 0. 7 10*3 0.0-1.0 Automated eosinophil count 0.2 10*3/uL 0 .0-0.3 Automated blood basophil count (count/volume) 0.0 10*3/uL 0.0-0.1 Comprehensive metabolic panel - 06/30/19 04:52 Serum or plasma sodium measurement (moles/volume) 140 mmol/L 135-145 Serum or plasma potassium measurement (moles/volume) 3.5 mmol/L 3.6-5.0 Serum or plasma chloride measurement (moles/volume) 106 mmol/L 98-107 Carbon dioxide 25 mmol/L 21-32 Serum or plasma anion gap determination (moles/volume) 9 mmol/L 5-14 Serum or plasma urea nitrogen measurement (mass/volume ) 12 mg/dL 7-18 Serum or plasma creatinine measurement (mass/volume) 0.87 mg/dL 0.60-1.30 Serum or plasma urea nitrogen/creatinine mass ratio 14 NRG Serum or plasma creatinine measurement w ith calculation of estimated glomerular filtration rate > NRG Serum or plasma glucose measurement (mass/volume) 137 mg/dL 70-105 Serum or plasma calcium measurement (mass/volume) 8.8 mg/dL 8.5-10.1 Serum or plasma total bilirubin measurement (mass/volu me) 0.9 mg/dL 0.1-1.0 Serum or plasma alkaline phosphatase azalea surement (enzymatic activity/volume) 68 U/L 40-136 Serum or plasma aspartate aminotransfera se measurement (enzymatic activity/volume) 16 U/L 5-34 Serum or plasma alanine aminotransferase measurement (enzymatic activity/volume) 18 U/L 0-55 Serum or plasma protein measurement (mass/volume) 6.4 g/dL 6.4-8.2 Serum or plasma albumin measurement (mass/volume) 3.6 g/dL 3.2-4.5 CALCIUM CORRECTED 9.1 mg/dL 8.5-10.1 Vancomycin trough - 06/30/19 18:30 Vancomycin trough 14.3 ug/mL 10.0-20.0 Complete blood count (CBC) with automate d white blood cell (WBC) differential - 09/01/19 22:20 Blood leukocytes automated count (number/volume) 10.3 10*3/uL 4.3-11.0 Blood erythrocytes automated count (number/volume) 5.36 10*6/uL 4.35-5.85 Venous blood hemoglobin measurement (mass/volume) 15.4 g/dL 13.3-17.7 Blood hematocrit (volume fraction) 44 % 40-54 Automated erythrocyte mean corpuscular volume 83 [ foz_us] 80-99 Automated erythrocyte mean corpuscular h emoglobin (mass per erythrocyte) 29 pg 25-34 Automated erythrocyte mean corpuscular h emoglobin concentration measurement (mass/volume) 35 g/dL 32-36 Automated erythrocyte distribution width ratio 14. 2 % 10.0- 14.5 Automated blood platelet count (count/volume) 206 10*3/uL 130-400 Automated blood platelet mean volume measurement 10.1 [foz_us] 7.4-10.4 Automated blood neutrophils/100 leukocytes 64 % 42-75 Automated blood lymphocytes/100 leukocytes 25 % 12-44 Blood monocytes/100 leukocytes 10 % 0-12 Automated blood eosinophils/100 leukocytes 1 % 0-10 Automated blood basophils/100 leukocytes 0 % 0-10 Blood neutrophils automated count (number/volume) 6.6 10*3 1.8-7.8 Blood lymphocytes automated count (number/volume) 2.5 10*3 1.0-4.0 Blood monocytes automated count (number/volume) 1. 0 10*3 0.0-1.0 Automated eosinophil count 0.1 10*3/uL 0 .0-0.3 Automated blood basophil count (count/volume) 0.0 10*3/uL 0.0-0.1 Gram stain microscopy - 09/01/19 22:24 Gram stain microscopy No bacteria seen NRG Bacteria identification in wound by cult ure - 09/01/19 22:24 Bacteria identification in wound by culture [id number] NRG FREE TEXT EXTERNAL NORMAL SKIN RAMESH ISOLATED NRG QUANTITY OF GROWTH FEW NRG FREE TEXT ENTRY 2 NO SUSCEPTIBILITTY SET UP NRG Dirithromycin susceptibility test by dis k diffusion - 09/01/19 22:24 Oxacillin susceptibility test by minimum inhibitory co ncentration > NRG Clindamycin susceptibility test by minimum inhibitory concentration <= NRG Erythromycin susceptibility test by minimum inhibitory concentration > NRG Trimethoprim/sulfamethoxazole susceptibi lity test by minimum inhibitoryconcentration > NRG Vancomycin susceptibility test by minimum inhibitory c oncentration 1 NRG Levofloxacin susceptibility test by minimum inhibitory concentration 4 NRG Rifampin susceptibility test by minimum inhibitory con centration <= NRG Cefazolin susceptibility test by minimum inhibitory co ncentration > NRG Linezolid susceptibility test by minimum inhibitory co ncentration 2 NRG Penicillin G susceptibility test by minimum inhibitory concentration > NRG Moxifloxacin susceptibility test by minimum inhibitory concentration 1 NRG Minocycline susc TAYO <= NRG CMP - 09/13/19 13:54 GLUCOSE 138 mg/dL 65-99 UREA NITROGEN (BUN) 15 mg/dL 7-25 CREATININE 0.98 mg/dL 0.70-1.25 eGFR NON-AFR. BARBADIAN 79 mL/min/1.73m2 > OR = 60 eGFR 91 mL/min/1.73m2 > OR = 60 BUN/CREATININE RATIO NOT APPLICABLE (calc) 6-22 SODIUM 140 mmol/L 135-146 POTASSIUM 4.3 mmol/L 3.5-5.3 CHLORIDE 103 mmol/L 98-110 CARBON DIOXIDE 28 mmol/L 20-32 CALCIUM 9.4 mg/dL 8.6-10.3 PROTEIN, TOTAL 7.4 g/dL 6.1-8.1 ALBUMIN 4.5 g/dL 3.6-5.1 GLOBULIN 2.9 g/dL (calc) 1.9-3.7 ALBUMIN/GLOBULIN RATIO 1.6 (calc) 1.0-2. 5 BILIRUBIN, TOTAL 0.9 mg/dL 0.2-1.2 ALKALINE PHOSPHATASE 70 U/L 40-115 AST 20 U/L 10-35 ALT 25 U/L 9-46 CULTURE, ANAEROBIC AND AEROBIC - 0 15:04 CULTURE, ANAEROBIC BACTERIA W/GRAM STAIN SEE NOTE NRG CULTURE, AEROBIC BACTERIA SEE NOTE NRG Coronavirus SARS-CoV-2 SO 2018 - 0 13:26 Coronavirus Ab [Units/volume] in Serum Negative Negative Encounters ACCT No. Visit Date/Time Discharge Status Pt. Type Provider Facility Loc./Unit Complaint [id number] 11/11/2019 13:40:00 11/11/2019 23:59: 59 CLS Outpatient ELI HAYNES [facility] [place] [id number] 11/11/2019 13:40:00 Document Registration [id number] 09/13/2019 13:00:00 Document Registration [id number] 04/19/2019 08:00:00 Document Registration [id number] 04/16/2019 09:20:00 Document Registration [id number] 03/27/2018 14:00:00 Document Registration [id number] 01/23/2018 15:00:00 Document Registration [id number] 09/14/2019 13:21:00 09/14/2019 23:59: 00 DIS Outpatient DARRIUS REEVES [id number] 05/25/2019 13:33:00 05/25/2019 23:59: 00 DIS Outpatient DARRIUS REEVES [id number] 01/26/2019 11:08:00 01/26/2019 23:59: 00 DIS Outpatient DARRIUS REEVES [id number] 03/09/2020 09:12:00 16:25:00 DIS Outpatient JERAMY PEACOCK DO [facility] PREOP COLONOSCOPY [id number] 01/17/2020 08:30:00 020 23:59:59 CLS Preadmit JERAMY PEACOCK DO [facility] ENDO HX POLYPS [id number] 01/10/2020 05:52:00 12:15:00 DIS Outpatient JERAMY PEACOCK DO [facility] PREOP COLONOSCOPY [id number] 09/01/2019 22:08:00 019 22:50:00 DIS Emergency JEREMIAH AVENDAÑO APRN [facility] ER LIPS SWOLLEN [id number] 06/28/2019 16:19:00 18:55:00 DIS Inpatient KENNETH BERRY, GABO Jordan [facility] 4TH SUBMANDIBULAR CELLULITI S [id number] 04/08/2019 10:57:00 23:59:59 CLS Outpatient ELI HAYNES APRN [facility] RAD DIFFICULTY WITH SPEECH [id number] 01/04/2019 11:22:00 23:59:59 CLS Preadmit ELI HAYNES APRN [facility] RAD DIFFICULTY SWAL LOWING [id number] 12/28/2018 12:09:00 15:15:00 DIS Outpatient JERAMY PEACOCK DO [facility] ENDO SCREENING/CHANGE IN BM/ DYSPAGIA [id number] 12/24/2018 05:38:00 14:51:00 DIS Outpatient JERAMY PEACOCK DO [facility] PREOP COLONOSCOPY/EGD [id number] 12/23/2018 10:13:00 23:59:59 CLS Outpatient ELI HAYNES APRN [facility] RAD DYSPHAGIA, UNSP ECIFIED TYPE [id number] 01/22/2018 13:30:00 14:13:00 DIS Outpatient MARV VILLALOBOS MD [facility] REHAB DIFFICULTY SPEAKING
[2020-03-13] MEDS ORDERED: LACTATED RINGERS 1,000 ML IV STA (08:03)
[2020-03-13 08:10] VITALS: BP 142/93
--- NOTE | 2020-03-13 09:06 | Progress Note-Pre Operative ---
Pre-Operative Progress Note H&P Reviewed The H&P was reviewed, patient examined and no changes noted. Time Seen by Provider: 09:02 Date H&P Reviewed: March 13, 2020 Time H&P Reviewed: 09:03 Pre-Operative Diagnosis: Hx of colon polyp, poor prep JERAMY PEACOCK DO March 13, 2020 09:06
[2020-03-13] MEDS ORDERED: PROPOFOL INJECTION 50 ML IV ONE (09:15)
[2020-03-13 09:55] VITALS: BP 113/58
[2020-03-13 10:00] VITALS: BP 112/56
[2020-03-13 10:05] VITALS: BP 112/56
--- NOTE | 2020-03-13 10:05 | Progress Note-Post Operative ---
Post-Operative Progess Note Surgeon (s)/Molded Candles Wicker (s) Surgeon JERAMY PEACOCK DO Molded Candles Wicker: none Pre-Operative Diagnosis Hx of colon polyp, poor prep Post-Operative Diagnosis poor prep Procedure & Operative Findings Date of Procedure 03/13/20 Procedure Performed/Findings Colon Anesthesia Type IV sedation by BUSINESS OFFICE REPRESENTATIVE Estimated Blood Loss Estimated blood loss (mL): none Specimens/Packing Specimens Removed none Packing: Significant other states he did not finish his prep, refused to and is not sure when he ate solids last. Stated he didn't finish his prep last time. "he wants a colonoscopy, but does not want to do the work to be clean"; states he did complain that prep made him sick. JERAMY PEACOCK DO March 13, 2020 10:04
--- NOTE | 2020-03-13 10:06 | Endoscopy Discharge Instruct ---
Endo Procedure/Findings Findings 1.: Internal Hemorrhoids 2.: Other Findings (poor prep) Discharge Instructions - Activity: You might feel a little sleepy until tomorrow. This is due to the medicine you received to relax you. Until tomorrow, you should: NOT drive a car, operate machinery or power tools. NOT drink any alcoholic beverages. NOT make any important decisions or sign importortant papers. Do not return to work until tomorrow, unless otherwise instructed. Resume previous activities tomorrow. Diet: Start by taking liquids. If you tolerate liquids, advance to solid food. make appointment for one week 1.: Colonoscopy in 1 year Notify Physician - If you experience excessive bleeding, unusual abdominal pain, fever, or chest pain, contact your doctor immediately. JERAMY PEACOCK DO March 13, 2020 10:06
[2020-03-13 10:26] VITALS: BP 122/78
--- NOTE | 2020-03-13 14:00 | Anesthesia-General Post-Op ---
MAC Patient Condition Mental Status/LOC: Same as Preop Cardiovascular: Satisfactory Nausea/Vomiting: Absent Respiratory: Satisfactory Pain: Controlled Complications: Absent Post Op Complications Complications None Follow Up Care/Instructions Patient Instructions None needed. Anesthesiology Discharge Order Discharge Order Patient is doing well, no complaints, stable vital signs, no apparent adverse anesthesia problems. No complications reported per nursing. CRISTIAN BEST CRNA March 13, 2020 13:59
--- NOTE | 2020-03-13 23:20 | OPERATIVE REPORT ---
DATE OF SERVICE: 03/13/2020 PREOPERATIVE DIAGNOSES: History of polyps and previous poor prep. POSTOPERATIVE DIAGNOSES: Poor prep and internal hemorrhoids. PROCEDURE: Colonoscopy. SURGEON: Uriel Calderon DO MICROPHONE OPERATOR: None. ANESTHESIA: IV sedation by HOUSING ASSISTANT PROPERTY MANAGER. SPECIMENS: None. BLOOD LOSS: None. FLUIDS: Per anesthesia. POSTOPERATIVE CONDITION: Stable. INDICATION FOR PROCEDURE: The patient is a 69-year-old male who had a poor prep last time, but had a polyp removed, it was adenoma and needed a repeat colonoscopy. FINDINGS: The patient unfortunately had another poor prep while his significant other states that he did not finish the prep and that he basically does not want to do the prep because it makes him slightly sick even though he wants to get a colonoscopy performed. PROCEDURE NOTE: After informed consent was obtained, the patient was brought to the endoscopy suite, placed in bed in the left lateral decubitus position. He was administered IV sedation by the HOUSING ASSISTANT PROPERTY MANAGER who monitored his vitals the entire time, heart rate, blood pressure and pulse ox. I then inserted the scope, pushed in just past the splenic flexure into the transverse colon. Throughout here I saw retained fecal material and then just could not get past the transverse colon because there was so much fluid, could not suction up and we could see large pieces of , that looked like black . At this point, slowly withdrew the scope, insufflating, looking around, did not see any obvious, saw some internal hemorrhoids, removed the scope. The patient tolerated the procedure, recovered in endoscopy suite. Job ID: [id number] DocumentID: [id number] Dictated Date: 03/13/2020 15:10:50 Business Solutions Director Date: 03/13/2020 19:44:52 Dictated By: URIEL CALDERON DO
== END 2020-03-13 10:25 | disposition home or self-care (01) ==
LOC: ENDO 07:55
PROVIDERS: ATTEND Surgery
DX: K64.8 Other hemorrhoids (principal); K21.9 Gastro-esophageal reflux disease without esophagitis; I10 Essential (primary) hypertension; E78.5 Hyperlipidemia, unspecified; E11.40 Type 2 diabetes mellitus with diabetic neuropathy, unspecified; G89.29 Other chronic pain; M54.9 Dorsalgia, unspecified; F32.9 Major depressive disorder, single episode, unspecified; Z86.010 Personal history of colon polyps; Z79.82 Long term (current) use of aspirin; Z79.84 Long term (current) use of oral hypoglycemic drugs; Z79.899 Other long term (current) drug therapy

== ENCOUNTER 2020-05-23 10:36 | Emergency (ER) | payer MEDICARE, OTHER ==
[~2020-05-23] VITALS: Ht 187.9 cm; Wt 117.9 kg
[~2020-05-23 10:36] MED LIST changes: -LACTATED RINGERS 1,000 ML IV ONE
[2020-05-23 11:17] LABS: BASOPHILS % (AUTO) 0 % (0-10); EOSINOPHILS % (AUTO) 0 % (0-10); HEMATOCRIT 43 % (40-54); LYMPHOCYTES # (AUTO) 1.2 X 10^3 (1.0-4.0); LYMPHOCYTES % (AUTO) 12 % (12-44); MEAN CORPUSCULAR HEMOGLOBIN 29 PG (25-34); MEAN CORPUSCULAR HGB CONC 35 G/DL (32-36); MEAN CORPUSCULAR VOLUME 82 FL (80-99); MEAN PLATELET VOLUME 10.2 FL (7.4-10.4); MONOCYTES % (AUTO) 10 % (0-12); NEUTROPHILS # (AUTO) 7.6 X 10^3 (1.8-7.8); NEUTROPHILS % (AUTO) 78 % (42-75); PLATELET COUNT 164 10^3/uL (130-400); RED CELL DISTRIBUTION WIDTH 13.9 % (10.0-14.5); WHITE BLOOD COUNT 9.8 10^3/uL (4.3-11.0)
[2020-05-23] MEDS ORDERED: NS IV 1000 ML 1,000 ML IV SCH (11:30)
[2020-05-23 11:40] LABS: ALBUMIN 4.7 GM/DL (3.2-4.5); CHLORIDE 105 MMOL/L (98-107); POTASSIUM 4.1 MMOL/L (3.6-5.0); SODIUM 139 MMOL/L (135-145)
[2020-05-23 11:41] LABS: AMYLASE 51 U/L (25-125); CALCIUM 9.8 MG/DL (8.5-10.1)
[2020-05-23 11:42] LABS: GLUCOSE 242 MG/DL (70-105)
--- NOTE | 2020-05-23 11:42 | ED Abdominal Pain ---
General Chief Complaint: Abdominal/GI Problems Stated Complaint: ABD PAIN Nursing Triage Note: pt reports abominal pain for 12-16 hours. pt reports being consipated, two enemas at home with no relief. pt reports having acid refulx and lots of bile coming into his throat and making him cough when this happens. Sepsis Screen: No Definite Risk Source of Information: Patient Exam Limitations: No Limitations History of Present Illness Date Seen by Provider: May 23, 2020 Time Seen by Provider: 11:00 Initial Comments 69-year-old male who presents to the emergency room with complaints of left upper and left lower abdominal pain that onset 12-16 hours ago. He reports that he has been constipated and believes that this is causing his abdominal pain. He also reports difficulty urinating due to the constipation. He reports using 2 enemas at home and MiraLAX without relief. He reports having acid reflux and bile coming up and his throat making him cough when this happened. He reports that he has been eating a lot of cheese and very and believes this to be the cause of his constipation. He reports he has had constipation issues in the past. Severity/Quality: Aching Location: LUQ, LLQ Associated Symptoms: Denies Symptoms Allergies and Home Medications Allergies Coded Allergies: No Known Drug Allergies (Unverified , 01/10/20) Home Medications Amlodipine Besylate 10 Mg Tablet, 10 MG PO DAILY, (Reported) Aspirin 325 Mg Tablet, 325 MG PO DAILY, (Reported) Atorvastatin Calcium 10 Mg Tablet, 10 MG PO HS, (Reported) Baclofen 10 Mg Tablet, 10 MG PO HS, (Reported) Benztropine Mesylate 1 Mg Tablet, 1 MG PO BID, (Reported) Clorazepate Dipotassium 7.5 Mg Tablet, 7.5 MG PO HS PRN for SLEEP, (Reported) Docusate Sodium 100 Mg Capsule, 100 MG PO DAILY PRN for CONSTIPATION-1ST LINE, (Reported) Fluoxetine HCl 20 Mg Capsule, 20 MG PO DAILY, (Reported) Hydrocodone Bit/Acetaminophen 1 Each Tablet, 1 TAB PO BID PRN for PAIN-MODERATE, (Reported) Metformin HCl 500 Mg Tablet, 1,000 MG PO BID, (Reported) Pantoprazole Sodium 40 Mg Tablet.dr, 40 MG PO DAILY, (Reported) Patient Home Medication List Home Medication List Reviewed: Yes Review of Systems Review of Systems Constitutional: see HPI; No chills, No fever Gastrointestinal: See HPI, Abdominal Pain, Constipated All Other Systems Reviewed Negative Unless Noted: Yes Past Rlunuvm-Lrpnqy-Zxdvgc Hx Past Med/Social Hx: Reviewed Nursing Past Med/Soc Hx Patient Social History Alcohol Use: Denies Use Recreational Drug Use: No Smoking Status: Never a Smoker Former Smoker, Quit: Dec 24, 2008 2nd Hand Smoke Exposure: Yes Recent Foreign Travel: No Contact w/Someone Who Travel: No Recent Infectious Disease Expo: No Recent Hopitalizations: No Physical Abuse: No Sexual Abuse: No Immunizations Up To Date Tetanus Booster (TDap): Unknown Date of Influenza Vaccine: Aug 02, 2019 Seasonal Allergies Seasonal Allergies: No Past Medical History Surgeries: Yes (HEMORROIDECTOMY, THROAT CA) Gallbladder Respiratory: No Cardiac: Yes High Cholesterol, Hypertension Neurological: No Sexually Transmitted Disease: No HIV/AIDS: No Genitourinary: No Gastrointestinal: Yes Gastroesophageal Reflux, Chronic Constipation, Polyps Musculoskeletal: Yes Chronic Back Pain Endocrine: Yes Diabetes, Non-Insulin dep HEENT: Yes (GLASSES, DENTURES) Loss of Vision: Bilateral Hearing Impairment: Denies Cancer: Yes Esophageal Did You Recieve Any Treatments: Yes What Type of Treatment Did You: Radiation, Surgical Intervention Psychosocial: Yes Depression Integumentary: No Blood Disorders: No Adverse Reaction/Blood Tranf: No (N/A) Family Medical History Reviewed Nursing Family Hx Physical Exam Vital Signs Vital Signs - First Documented 05/23/20 10:56 Temp 36.8 Pulse 127 Resp 14 B/P (MAP) 145/101 (116) Pulse Ox 98 Capillary Refill : Less Than 3 Seconds Height/Weight/BMI Height: 6'2.00" Weight: 259lbs. 1.0oz. [id number]; 33.00 BMI Method:Stated General Appearance: WD/WN, no apparent distress Respiratory: chest non-tender, lungs clear, normal breath sounds, no respiratory distress, no accessory muscle use Cardiovascular: normal peripheral pulses, regular rate, rhythm, no edema, no gallop, no JVD, no murmur Gastrointestinal: normal bowel sounds, non tender, soft, no organomegaly, no pulsatile mass, distended Extremities: normal capillary refill Neurologic/Psychiatric: alert, normal mood/affect, oriented x 3 Skin: normal color, warm/dry Progress/Results/Core Measures Results/Orders Lab Results Laboratory Tests Test 05/23/20 11:09 05/23/20 12:33 Range/Units White Blood Count 9.8 4.3-11.0 10^3/uL Red Blood Count 5.18 4.35-5.85 10^6/uL Hemoglobin 15.0 13.3-17.7 G/DL Hematocrit 43 40-54 % Mean Corpuscular Volume 82 80-99 FL Mean Corpuscular Hemoglobin 29 25-34 PG Mean Corpuscular Hemoglobin Concent 35 32-36 G/DL Red Cell Distribution Width 13.9 10.0-14.5 % Platelet Count 164 130-400 10^3/uL Mean Platelet Volume 10.2 7.4-10.4 FL Neutrophils (%) (Auto) 78 H 42-75 % Lymphocytes (%) (Auto) 12 12-44 % Monocytes (%) (Auto) 10 0-12 % Eosinophils (%) (Auto) 0 0-10 % Basophils (%) (Auto) 0 0-10 % Neutrophils # (Auto) 7.6 1.8-7.8 X 10^3 Lymphocytes # (Auto) 1.2 1.0-4.0 X 10^3 Monocytes # (Auto) 1.0 0.0-1.0 X 10^3 Eosinophils # (Auto) 0.0 0.0-0.3 10^3/uL Basophils # (Auto) 0.0 0.0-0.1 10^3/uL Sodium Level 139 135-145 MMOL/L Potassium Level 4.1 3.6-5.0 MMOL/L Chloride Level 105 98-107 MMOL/L Carbon Dioxide Level 18 L 21-32 MMOL/L Anion Gap 16 H 5-14 MMOL/L Blood Urea Nitrogen 25 H 7-18 MG/DL Creatinine 1.23 0.60-1.30 MG/DL Estimat Glomerular Filtration Rate 59 BUN/Creatinine Ratio 20 Glucose Level 242 H 70-105 MG/DL Calcium Level 9.8 8.5-10.1 MG/DL Corrected Calcium 8.5-10.1 MG/DL Total Bilirubin 0.9 0.1-1.0 MG/DL Aspartate Amino Transf (AST/SGOT) 26 5-34 U/L Alanine Aminotransferase (ALT/SGPT) 36 0-55 U/L Alkaline Phosphatase 86 40-136 U/L Total Protein 7.8 6.4-8.2 GM/DL Albumin 4.7 H 3.2-4.5 GM/DL Amylase Level 51 25-125 U/L Lipase 15 8-78 U/L My Orders Orders - DEIRDRE COOK Comprehensive Metabolic Panel (05/23/20 11:05) Lipase (05/23/20 11:05) Amylase (05/23/20 11:05) Ua Culture If Indicated (05/23/20 11:05) Ed Iv/Invasive Line Start (05/23/20 11:05) Cbc With Automated Diff (05/23/20 11:05) Ns Iv 1000 Ml (Sodium Chloride 0.9%) (05/23/20 11:30) Abdomen, Flat & Upright/Decub (05/23/20 11:22) Ct Abdomen/Pelvis Wo (05/23/20 11:53) Vital Signs/I&O 05/23/20 10:56 Temp 36.8 Pulse 127 Resp 14 B/P (MAP) 145/101 (116) Pulse Ox 98 Blood Pressure Mean: 116 Progress Progress Note : Time: 12:51 Progress Note Discussed results with the patient. He reports that he did go to the restroom to urinate and had a very large bowel movement resolving his constipation and his abdominal pain. He agrees with plan of care, plans for discharge, close follow- up with his PCP. Return precautions were given. Departure Impression Primary Impression: Constipation Disposition: 01 HOME, SELF-CARE Condition: Stable/Unchanged Departure-Patient Inst. Decision time for Depature: 12:51 Referrals: [facility]/JONATHAN (PCP) Primary Care Physician ELI HAYNES APRN (Family) Primary Care Physician Patient Instructions: Constipation, Adult (DC) Add. Discharge Instructions: Continue your MiraLAX daily until you have established a normal bowel routine. Call to schedule an appointment today with your PCP follow-up within 1 week. Return back to the emergency room for worsening symptoms or concerns as needed. All discharge instructions reviewed with patient and/or family. Voiced understanding. DEIRDRE COOK May 23, 2020 11:42
[2020-05-23 11:43] LABS: TOTAL PROTEIN 7.8 GM/DL (6.4-8.2)
[2020-05-23 11:44] LABS: BILIRUBIN,TOTAL 0.9 MG/DL (0.1-1.0); CARBON DIOXIDE 18 MMOL/L (21-32)
[2020-05-23 11:46] LABS: ALKALINE PHOSPHATASE 86 U/L (40-136); CREATININE SERUM 1.23 MG/DL (0.60-1.30); GFR ESTIMATED 59
[2020-05-23 11:47] LABS: BUN/CREATININE RATIO 20
[2020-05-23 11:49] LABS: ALANINE AMINOTRANSFERASE 36 U/L (0-55)
[2020-05-23 11:50] LABS: LIPASE 15 U/L (8-78)
--- NOTE | 2020-05-23 12:10 | Diagnostic Imaging Report ---
INDICATION: Constipation. No priors FINDINGS: There is an at least moderate severity of francisco colonic constipation. No findings of focal impaction. No small bowel dilatation. IMPRESSION: At least moderate severity of francisco colonic constipation. Dictated by: Dictated on workstation # [id number]
--- NOTE | 2020-05-23 12:30 | Diagnostic Imaging Report ---
PROCEDURE: CT abdomen and pelvis without contrast. TECHNIQUE: Multiple contiguous axial images were obtained through the abdomen and pelvis without the use of intravenous contrast. Auto Exposure Controls were utilized during the CT exam to meet ALARA standards for radiation dose reduction. INDICATION: A 12 to 16 hours of abdominal pain. History of constipation. Enema was performed at home without significant relief. There is a diffusely elevated colonic fecal load consistent with mild to moderate francisco colonic constipation. There is stool at the rectum butt the rectum is not pathologically distended. No findings of focal impaction or resultant bowel obstruction. No significant large bowel wall thickening no pericolonic or perienteric edema. No air-fluid levels within the small bowel. The small bowel nondilated. The urinary bladder is mildly distended but not appreciably thickened. There is a mild degree of ectasia of the bilateral renal calculus calyces and renal pelves without radiopaque stone. There may be some mild perinephric edema versus chronic perinephric scarring. There is no appendicitis or diverticulitis. The gallbladder is surgically absent. The liver, spleen, adrenals and pancreas unremarkable. The atherosclerotic aorta is nonaneurysmal. The bony structures appeared nonacute. IMPRESSION: Colonic constipation without focal impaction or obstruction. Distention of the nonfocal urinary bladder may account for mild bilateral renal pyelocaliectasis. No stone however. Questionable findings for mild bilateral perinephric edema versus some chronic perinephric scarring in this patient with no comparison available. No other significant finding. Dictated by: Dictated on workstation # [id number]
[2020-05-23 12:40] LABS: BILIRUBIN,URINE NEGATIVE (NEGATIVE); CLARITY,URINE CLEAR; COLOR,URINE YELLOW; GLUCOSE, URINE (UA) 3+ (NEGATIVE); KETONES,URINE NEGATIVE (NEGATIVE); LEUKOCYTE ESTERASE ,URINE NEGATIVE (NEGATIVE); NITRITE,URINE NEGATIVE (NEGATIVE); PH,URINE 5.5 (5-9); PROTEIN,URINE TRACE (NEGATIVE)
--- OUTSIDE RECORDS SUMMARY | 2020-05-23 12:49 | XMS REPORT | Continuity of Care Document ---
Author Organization Unknown Address Unknown Phone Unavailable Allergies Active Description Code Type Severity Reaction Onset Reported/Identified Relationship to Patient Clinical Status Yes No Allergy Information Available [id number] Drug Allergy Unknown N/A 019 Yes No Known Drug Allergies [id number] Drug Allergy Unknown N/A 01/10/2020 Medications There [...] Z85.89 PERSONAL HISTORY OF MALIGNANT NEOPLASM O 09/25/1624 JERAMY PEACOCK DO Ot Z01.8 12 ENCOUNTER FOR PREPROCEDURAL LABORATORY E 09/25/1624 JERAMY PEACOCK DO Ot Z11.5 9 ENCOUNTER FOR SCREENING FOR OTHER VIRAL 09/25/1624 JERAMY PEACOCK DO Ot Z86.0 10 PERSONAL HISTORY OF COLONIC POLYPS 01/02/2018 MARV VILLALOBOS MD Ot E11.9 TYPE 2 DIABETES MELLITUS WITHOUT [...] PERSONAL HISTORY OF MALIGNANT NEOPLASM O 12/23/2018 IVY, ELI J RACQUET MAKER Ot R13.10 DYSPHAGIA, UNSPECIFIED 12/24/2018 ELI HAYNES RACQUET MAKER Ot R13.10 DYSPHAGIA, UNSPECIFIED 12/24/2018 SARAH PEACOCK DOIC B Ot Z01.8 18 ENCOUNTER FOR OTHER PREPROCEDURAL EXAMIN 12/25/2018 SARAH PEACOCK DOIC B Ot Z01.8 18 ENCOUNTER FOR OTHER PREPROCEDURAL EXAMIN 12/28/2018 ELI HAYNES RACQUET MAKER Ot R13.10 DYSPHAGIA, UNSPECIFIED 12/28/2018 AYUSH CHUNG JERAMY B Ot D12.5 BENIGN NEOPLASM OF SIGMOID COLON 12/28/2018 AYUSH CHUNG JERAMY B Ot E11.9 TYPE 2 DIABETES MELLITUS WITHOUT COMPLIC 12/28/2018 SARAH PEACOCK DOIC B Ot E78.5 HYPERLIPIDEMIA, UNSPECIFIED 12/28/2018 AYUSH CHUNG JERAMY B Ot I10 ESSENTIAL (PRIMARY) HYPERTENSION 12/28/2018 AYUSH CHUNG JERAMY B Ot K20.9 ESOPHAGITIS, UNSPECIFIED 12/28/2018 AYUSH CHUNG JERAMY B Ot K21.0 GASTRO-ESOPHAGEAL REFLUX DISEASE WITH ES 12/28/2018 AYUSH CHUNG JERAMY B Ot K21.9 GASTRO-ESOPHAGEAL REFLUX DISEASE WITHOUT 12/28/2018 AYUSH CHUNG, JERAMY B Ot K29.5 0 UNSPECIFIED CHRONIC GASTRITIS WITHOUT BL 12/28/2018 SARAH PEACOCK DOIC B Ot K63.5 POLYP OF COLON 12/28/2018 AYUSH CHUNG JERAMY B Ot K63.8 9 OTHER SPECIFIED DISEASES OF INTESTINE 12/28/2018 SARAH PEACOCK DOIC B Ot K64.8 OTHER HEMORRHOIDS 12/28/2018 SARAH PEACOCK DOIC B Ot R13.1 2 DYSPHAGIA, OROPHARYNGEAL PHASE 12/28/2018 AYUSH CHUNG JERAMY B Ot R19.4 CHANGE IN BOWEL HABIT 12/28/2018 SARAH PEACOCK DOIC B Ot Z12.1 1 ENCOUNTER FOR SCREENING FOR MALIGNANT NE 12/28/2018 SARAH PEACOCK DOIC B Ot 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 12/28/2018 SARAH PEACOCK DOIC B Ot Z79.8 4 STRANDING MACHINE OPERATOR HELPER (CURRENT) USE OF ORAL HYPOGLYC 12/28/2018 SARAH PEACOCK DOIC B Ot Z79.8 99 OTHER STRANDING MACHINE OPERATOR HELPER (CURRENT) DRUG THERAPY 12/28/2018 JERAMY PEACOCK DO Ot Z85.2 1 PERSONAL HISTORY OF MALIGNANT NEOPLASM O 12/28/2018 JERAMY PEACOCK DO Ot Z87.8 91 PERSONAL HISTORY OF NICOTINE DEPENDENCE 12/28/2018 JERAMY PEACOCK DO Ot Z92.3 PERSONAL HISTORY OF IRRADIATION 12/31/2018 JERAMY PEACOCK DO Ot D12.5 BENIGN NEOPLASM OF SIGMOID COLON 12/31/2018 JERAMY PEACOCK DO Ot E11.9 TYPE 2 DIABETES MELLITUS WITHOUT COMPLIC 12/31/2018 JERAMY PEACOCK DO Ot E78.5 HYPERLIPIDEMIA, UNSPECIFIED 12/31/2018 SARAH PEACOCK DOIC B Ot I10 ESSENTIAL (PRIMARY) HYPERTENSION 12/31/2018 JERAMY PEACOCK DO Ot K21.0 GASTRO-ESOPHAGEAL REFLUX DISEASE WITH ES 12/31/2018 JERAMY PEACOCK DO B Ot K29.5 0 UNSPECIFIED CHRONIC GASTRITIS WITHOUT BL 12/31/2018 JERAMY PEACOCK DO B Ot K63.8 9 OTHER SPECIFIED DISEASES OF INTESTINE 12/31/2018 JERAMY PEACOCK DO Ot K64.8 OTHER HEMORRHOIDS 12/31/2018 JERAMY PEACOCK DO Ot R13.1 2 DYSPHAGIA, OROPHARYNGEAL PHASE 12/31/2018 JERAMY PEACOCK DO Ot R19.4 CHANGE IN BOWEL HABIT 12/31/2018 JERAMY PEACOCK DO Ot Z12.1 1 ENCOUNTER FOR SCREENING FOR MALIGNANT NE 12/31/2018 JERAMY PEACOCK DO Ot 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 12/31/2018 JERAMY PEACOCK DO Ot Z79.8 4 [facility] (CURRENT) USE OF ORAL HYPOGLYC 12/31/2018 JERAMY PEACOCK DO Ot Z79.8 99 OTHER [facility] (CURRENT) DRUG THERAPY 12/31/2018 JERAMY PEACOCK DO Ot Z85.2 1 PERSONAL HISTORY OF MALIGNANT NEOPLASM O 12/31/2018 JERAMY PEACOCK DO Ot Z87.8 91 PERSONAL HISTORY OF NICOTINE DEPENDENCE 12/31/2018 JERAMY PEACOCK DO B Ot Z92.3 PERSONAL HISTORY OF IRRADIATION 01/10/2019 JERAMY PEACOCK DO Ot D12.5 BENIGN NEOPLASM OF SIGMOID COLON 01/10/2019 JERAMY PEACOCK DO Ot E11.9 TYPE 2 DIABETES MELLITUS WITHOUT COMPLIC 01/10/2019 AUGUSTAJORGE JERAMY CHUNG Ot E78.5 HYPERLIPIDEMIA, UNSPECIFIED 01/10/2019 AUGUSTAJORGE JERAMY CHUNG Ot I10 ESSENTIAL (PRIMARY) HYPERTENSION 01/10/2019 JERAMY PEACOCK DO Ot K21.0 GASTRO-ESOPHAGEAL REFLUX DISEASE WITH ES 01/10/2019 JERAMY PEACOCK DO Ot K29.5 0 UNSPECIFIED CHRONIC GASTRITIS WITHOUT BL 01/10/2019 JERAMY PEACOCK DO Ot K63.8 9 OTHER SPECIFIED DISEASES OF INTESTINE 01/10/2019 JERAMY PEACOCK DO Ot K64.8 OTHER HEMORRHOIDS 01/10/2019 JERAMY PEACOCK DO Ot R13.1 2 DYSPHAGIA, OROPHARYNGEAL PHASE 01/10/2019 JERAMY PEACOCK DO Ot R19.4 CHANGE IN BOWEL HABIT 01/10/2019 JERAMY PEACOCK DO Ot Z12.1 1 ENCOUNTER FOR SCREENING FOR MALIGNANT NE 01/10/2019 JERAMY PEACOCK DO Ot Z79.8 2 [facility] (CURRENT) USE OF ASPIRIN 01/10/2019 JERAMY PEACOCK DO Ot Z79.8 4 STRANDING MACHINE OPERATOR HELPER (CURRENT) USE OF ORAL HYPOGLYC 01/10/2019 JERAMY PEACOCK DO Ot Z79.8 99 OTHER STRANDING MACHINE OPERATOR HELPER (CURRENT) DRUG THERAPY 01/10/2019 JERAMY PEACOCK DO Ot Z85.2 1 PERSONAL HISTORY OF MALIGNANT NEOPLASM O 01/10/2019 JERAMY PEACOCK DO Ot Z87.8 91 PERSONAL HISTORY OF NICOTINE DEPENDENCE 01/10/2019 JERAMY PEACOCK DO Ot Z92.3 PERSONAL HISTORY OF IRRADIATION 01/18/2019 [...] ACQUIRED ABSENCE OF LARYNX 04/14/2019 ELI HAYNES RACQUET MAKER Ot 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..] Ot K59.09 OTHER CONSTIPATION 06/30/2019 GABO COOPER MD, Ot M19.91 PRIMARY OSTEOARTHRITIS, UNSPECIFIED SITE 06/30/2019 GABO COOPER MD, Ot M54 .5 LOW BACK PAIN 06/30/2019 GABO COOPER MD Ot R59 .0 LOCALIZED ENLARGED LYMPH NODES 06/30/2019 GABO COOPER MD Ot Z79.84 STRANDING MACHINE OPERATOR HELPER (CURRENT) USE OF ORAL HYPOGLYC 06/30/2019 GABO COOPER MD, Ot Z85.819 PRSNL HX OF MALIG NEOPLM OF [facility] SITE LI 06/30/2019 GABO COOPER MD, Ot [...] WITHOUT 09/01/2019 JEREMIAH AVENDAÑO APRN Ot Z79.82 STRANDING MACHINE OPERATOR HELPER (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) USE OF ASPIRIN 09/01/2019 JEREMIAH AVENDAÑO APRN Ot Z79.84 [facility] (CURRENT) USE OF ORAL HYPOGLYC 09/01/2019 JEREMIAH AVENDAÑO APRN Ot Z85.01 PERSONAL HISTORY OF MALIGNANT NEOPLASM O 09/01/2019 JEREMIAH AVENDAÑO APRN Ot Z87.891 PERSONAL HISTORY OF NICOTINE DEPENDENCE 09/02/2019 ELI HAYNES APRN Ot 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, UNSPECIFIE 09/02/2019 ELI HAYNES APRN Ot M48.02 SPINAL STENOSIS, CERVICAL REGION 09/02/2019 ELI HAYNES APRN Ot 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 09/02/2019 IVY, ELI J RACQUET MAKER Ot 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 09/06/2019 JEREMIAH AVENDAÑO RACQUET MAKER Ot E11 .9 TYPE 2 DIABETES MELLITUS WITHOUT COMPLIC 09/06/2019 JEREMIAH AVENDAÑO APRN Ot E78.00 PURE HYPERCHOLESTEROLEMIA, UNSPECIFIED 09/06/2019 JEREMIAH AVENDAÑO RACQUET MAKER Ot F32 .9 MAJOR DEPRESSIVE DISORDER, SINGLE EPISOD 09/06/2019 JEREMIAH AVENDAÑO RACQUET MAKER Ot I10 ESSENTIAL (PRIMARY) HYPERTENSION 09/06/2019 JEREMIAH AVENDAÑO RACQUET MAKER Ot K13 .0 DISEASES OF LIPS 09/06/2019 JEREMIAH AVENDAÑO APRN Ot K21 .9 GASTRO-ESOPHAGEAL REFLUX DISEASE WITHOUT 09/06/2019 JEREMIAH AVENDAÑO APRN Ot Z79.82 [facility] (CURRENT) USE OF ASPIRIN 09/06/2019 JEREMIAH AVENDAÑO APRN Ot Z79.84 [facility] (CURRENT) USE OF ORAL HYPOGLYC 09/06/2019 JEREMIAH AVENDAÑO RACQUET MAKER Ot Z85.01 PERSONAL HISTORY OF MALIGNANT NEOPLASM O 09/06/2019 JEREMIAH AVENDAÑO RACQUET MAKER Ot Z87.891 PERSONAL HISTORY OF NICOTINE DEPENDENCE 01/11/2020 AYUSH DO, JERAMY B Ot Z01.8 18 ENCOUNTER FOR OTHER PREPROCEDURAL EXAMIN 01/16/2020 AYUSH CHUNG, JERAMY B Ot Z01.8 18 ENCOUNTER FOR OTHER PREPROCEDURAL EXAMIN 03/13/2020 AYUSH CHUNG, JERAMY B Ot E11.4 0 TYPE 2 DIABETES MELLITUS WITH DIABETIC N 03/13/2020 AYUSH CHUNG, JERAMY B Ot E78.5 HYPERLIPIDEMIA, UNSPECIFIED 03/13/2020 AYUSH CHUNG, JERAMY B Ot F32.9 MAJOR DEPRESSIVE DISORDER, SINGLE EPISOD 03/13/2020 AYUSH DO, JERAMY B Ot G89.2 9 OTHER CHRONIC PAIN 03/13/2020 AYUSH DO, JERAMY B Ot I10 ESSENTIAL (PRIMARY) HYPERTENSION 03/13/2020 AYUSH CHUNG, JERAMY B Ot K21.9 GASTRO-ESOPHAGEAL REFLUX DISEASE WITHOUT 03/13/2020 AYUSH DO, JERAMY B Ot K64.8 OTHER HEMORRHOIDS 03/13/2020 AYUSH DO, JERAMY B Ot M54.9 DORSALGIA, UNSPECIFIED 03/13/2020 AYUSH CHUNG, JERAMY B Ot Z79.8 2 [facility] (CURRENT) USE OF ASPIRIN 03/13/2020 AYUSH DO, JERAMY B Ot Z79.8 4 [facility] (CURRENT) USE OF ORAL HYPOGLYC 03/13/2020 DELJORGE DO, JERAMY B Ot Z79.8 99 OTHER STRANDING MACHINE OPERATOR HELPER (CURRENT) DRUG THERAPY 03/13/2020 AYUSH DO, JERAMY B Ot Z86.0 10 PERSONAL HISTORY OF COLONIC POLYPS 03/15/2020 AYUSH DO, JERAMY B Ot E11.4 0 TYPE 2 DIABETES MELLITUS WITH DIABETIC N 03/15/2020 AYUSH DO, JERAMY B Ot E78.5 HYPERLIPIDEMIA, UNSPECIFIED 03/15/2020 AYUSH DO, JERAMY B Ot F32.9 MAJOR DEPRESSIVE DISORDER, SINGLE EPISOD 03/15/2020 DELJORGE CHUNG, JERAMY B Ot G89.2 9 OTHER CHRONIC PAIN 03/15/2020 AYUSH DO, JERAMY B Ot I10 ESSENTIAL (PRIMARY) HYPERTENSION 03/15/2020 AYUSH CHUNG, JERAMY B Ot K21.9 GASTRO-ESOPHAGEAL REFLUX DISEASE WITHOUT 03/15/2020 AYUSH CHUNG, JERAMY B Ot K64.8 OTHER HEMORRHOIDS 03/15/2020 AYUSH CHUNG, JERAMY B Ot M54.9 DORSALGIA, UNSPECIFIED 03/15/2020 AYUSH DO, JERAMY B Ot 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 03/15/2020 AYUSH CHUNG, JERAMY B Ot Z79.8 4 STRANDING MACHINE OPERATOR HELPER (CURRENT) USE OF ORAL HYPOGLYC 03/15/2020 AYUSH CHUNG, JERAMY B Ot Z79.8 99 OTHER [facility] (CURRENT) DRUG THERAPY 03/15/2020 AYUSH CHUNG, JERAMY B Ot Z86.0 10 PERSONAL HISTORY OF COLONIC POLYPS Procedures There is no data. Results Test [...] 09:29 CREATININE 0.92 mg/dL 0.70-1.25 eGFR NON-AFR. ANGUILLAN 86 mL/min/1.73m2 > OR = 60 eGFR [...] 14:20 Bacteria identification in wound by culture [id number] NRG FREE TEXT EXTERNAL SUSCEPTIBILITY REPORTED [...] - 06/28/19 15:53 Bacterial blood culture NG NR Complete blood count (CBC) with automate d [...] 22:24 Bacteria identification in wound by culture [id number] NRG FREE TEXT EXTERNAL NORMAL SKIN [...] 7-25 CREATININE 0.98 mg/dL 0.70-1.25 eGFR NON-AFR. ANGUILLAN 79 mL/min/1.73m2 > OR = 60 eGFR [...] Status Pt. Type Provider Facility Loc./Unit Complaint [id number] 11/11/2019 13:40:00 11/11/2019 23:59: 59 CLS Outpatient ELI HAYNES [facility] [id number] 11/11/2019 13:40:00 Document Registration [id number] 09/13/2019 13:00:00 Document Registration [id number] 04/19/2019 08:00:00 Document Registration [id number] 04/16/2019 09:20:00 Document Registration [id number] 03/27/2018 14:00:00 Document Registration [id number] 01/23/2018 15:00:00 Document Registration [id number] 09/14/2019 13:21:00 09/14/2019 23:59: 00 DIS Outpatient DARRIUS REEVES [id number] 05/25/2019 13:33:00 05/25/2019 23:59: 00 DIS Outpatient DARRIUS REEVES [id number] 01/26/2019 11:08:00 01/26/2019 23:59: 00 DIS Outpatient DARRIUS REEVES [id number] 03/13/2020 07:55:00 020 23:59:59 CLS Outpatient JERAMY PEACOCK DO [facility] ENDO HX POLYPS [id number] 03/09/2020 09:12:00 16:25:00 DIS Outpatient JERAMY PEACOCK DO [facility] PREOP COLONOSCOPY [id number] 01/10/2020 05:52:00 12:15:00 DIS Outpatient JERAMY PEACOCK DO [facility] PREOP COLONOSCOPY [id number] 09/01/2019 22:08:00 22:50:00 DIS Emergency JEREMIAH AVENDAÑO RACQUET MAKER [facility] ER LIPS SWOLLEN [id number] 06/28/2019 16:19:00 18:55:00 DIS Inpatient KENNETH BERRY, GABO Jordan [facility] 4TH SUBMANDIBULAR CELLULITI S [id number] 04/08/2019 10:57:00 23:59:59 CLS Outpatient ELI HYANES APRN [facility] RAD DIFFICULTY WITH SPEECH [id number] 01/04/2019 11:22:00 23:59:59 CLS Preadmit ELI HAYNES RACQUET MAKER [facility] RAD DIFFICULTY SWAL LOWING [id number] 12/28/2018 12:09:00 15:15:00 DIS Outpatient JEARMY PEACOCK DO [facility] ENDO SCREENING/CHANGE IN BM/ DYSPAGIA [id number] 12/24/2018 05:38:00 14:51:00 DIS Outpatient JERAMY PEACOCK DO [facility] PREOP COLONOSCOPY/EGD [id number] 12/23/2018 10:13:00 23:59:59 CLS Outpatient ELI HAYNES APRN [facility] RAD DYSPHAGIA, UNSP ECIFIED TYPE [id number] 01/22/2018 13:30:00 14:13:00 DIS Outpatient MARV VILLALOBOS MD [facility] REHAB DIFFICULTY SPEAKING
[2020-05-23 12:57] LABS: BACTERIA,URINE NEGATIVE /HPF; RBC,URINE RARE /HPF
--- NOTE | 2020-05-23 12:57 | NUR ---
phone call placed to . updates given and questions answered, states no further questions or concerns at this time. also informed that pt is ready to be discharged, she will come to [address] to pick him up.
[2020-05-23 12:58] LABS: AMORPHOUS SEDIMENT,UR RARE AMOR URATES /LPF
[2020-05-23 13:08] VITALS: BP 145/101
== END 2020-05-23 13:08 | disposition home or self-care (01) ==
LOC: EDUNIT# 10:36 → ER 10:37
DX: K59.00 Constipation, unspecified (principal); I10 Essential (primary) hypertension; E78.00 Pure hypercholesterolemia, unspecified; K21.9 Gastro-esophageal reflux disease without esophagitis; E11.9 Type 2 diabetes mellitus without complications; F32.9 Major depressive disorder, single episode, unspecified; G89.29 Other chronic pain; M54.9 Dorsalgia, unspecified; Z85.01 Personal history of malignant neoplasm of esophagus; Z79.82 Long term (current) use of aspirin; Z79.84 Long term (current) use of oral hypoglycemic drugs; Z87.891 Personal history of nicotine dependence
CPT/HCPCS: 36415; 74019; 74176; 80053; 81000; 82150; 83690; 85025